=== PATIENT | female | born 1940 | race Caucasian/White ===

== ENCOUNTER 2017-10-27 16:46 | Observation (INO) | payer MEDICARE, OTHER ==
--- NOTE | 2017-10-27 16:56 | EDM.PDOC ---
ED HPI GENERAL MEDICAL PROBLEM - General Chief Complaint: Back Pain or Injury Stated Complaint: HIP PAIN Time Seen by Provider: 10/27/17 16:49 - History of Present Illness INITIAL COMMENTS - FREE TEXT/NARRATIVE: HISTORY AND PHYSICAL: History of present illness: Patient is a 77-year-old female with history of hypertension presents today status post fall in which she hurt her left ribs and lower back she denies any head or neck pain or trauma denies any chest pain palpitations nausea vomiting fever chills shortness of breath or other concern. Review of systems: As per history of present illness and below otherwise all systems reviewed and negative. Past medical history: As per history of present illness and as reviewed below otherwise noncontributory. Surgical history: As per history of present illness and as reviewed below otherwise noncontributory. Social history: No reported history of drug or alcohol abuse. Family history: As per history of present illness and as reviewed below otherwise noncontributory. Physical exam: HEENT: Atraumatic, normocephalic, pupils reactive, negative for conjunctival pallor or scleral icterus, mucous membranes moist, throat clear, neck supple, nontender, trachea midline. Lungs: Clear to auscultation, breath sounds equal bilaterally, tenderness to her left posterior ribs is nonlocalizing no crepitation no point tenderness. Heart: S1S2, regular, negative for clicks, rubs, or JVD. Abdomen: Soft, nondistended, nontender. Negative for masses or hepatosplenomegaly. Negative for costovertebral tenderness. Pelvis: Stable nontender. Genitourinary: Deferred. Rectal: Deferred. Extremities: Atraumatic, negative for cords or calf pain. Neurovascular unremarkable. Neuro: Awake, alert, oriented. Cranial nerves II through XII unremarkable. Cerebellum unremarkable. Motor and sensory unremarkable throughout. Exam nonfocal. Back: Patient is deep tendon reflexes are normal there is no point tenderness no vertebral body tenderness. Diagnostics: CBC CMP chest x-ray EKG left rib x-ray lumbar spine pelvis [employer]rapeutics: To be determined Impression: #1 observation status post fall #2 left rib injury #3 low back injury #4 history of hypertension Definitive disposition and diagnosis as appropriate pending reevaluation and review of above. lower back Pain Score (Numeric/FACES): 7 - Related Data Allergies Allergy/AdvReac Type Severity Reaction Status Date / Time codeine Allergy Change Verified 10/27/17 16:49 Mental Status Latex, Natural Rubber Allergy Other Verified 10/27/17 16:49 avocado Allergy Unknown Airway Uncoded 10/27/17 16:49 Tightness strawberry Allergy Unknown Hives Uncoded 10/27/17 16:49 kiwi Allergy Other Uncoded 10/27/17 16:49 Home Meds: Home Meds Dorzolamide HCl/Timolol Maleat [Dorzolamide-Timolol Eye Drops] 1 drop EYEBOTH BID 03/01/15 [History] Pilocarpine HCl 1 drop EYEBOTH QID 03/01/15 [History] Erythromycin Base [Erythromycin 0.5% Ophth Oint] 1 applic OP Q4H 10/27/17 [ History] Past Medical History - Past Surgical History Other Musculoskeletal Surgeries/Procedures:: right hip fracture with plate and screws Social & Family History - Tobacco Use Smoking Status *Q: Never Smoker Second Hand Smoke Exposure: No - Alcohol Use Number of Drinks Per Day: 2 - Recreational Drug Use Recreational Drug Use: No ED ROS GENERAL - Review of Systems Review Of Systems: ROS reveals no pertinent complaints other than HPI. ED EXAM, GENERAL - Physical Exam Exam: See Below (See dictation) Course - Vital Signs Last Recorded V/S: Last Vital Signs Temp 36.7 C 10/28/17 04:00 Pulse 69 10/28/17 04:00 Resp 17 10/28/17 04:00 BP 128/78 10/28/17 04:00 Pulse Ox 97 10/28/17 04:00 - Orders/Labs/Meds Orders: Active Orders 24 hr Category Date Time Status Patient Status [ADT] Stat ADT 10/27/17 18:33 Active EKG Documentation Completion [RC] STAT Care 10/27/17 16:52 Active Pulse Oximetry [RC] ASDIRECTED Care 10/27/17 16:52 Active Lumbar Spine 2 or 3V [CR] Stat Exams 10/27/17 16:52 Taken Lumbar Spine wo Cont [CT] Stat Exams 10/27/17 18:33 Taken Pelvis 1V or 2V [CR] Stat Exams 10/27/17 16:52 Taken Ribs 2V w Chest Lt [CR] Stat Exams 10/27/17 16:53 Taken Sodium Chloride 0.9% [Normal Saline] 1,000 ml Med 10/27/17 18:45 Active IV STAT Sodium Chloride 0.9% [Saline Flush] Med 10/27/17 18:30 Active 10 ml FLUSH ASDIRECTED PRN Sodium Chloride 0.9% [Saline Flush] Med 10/27/17 18:30 Active 2.5 ml FLUSH ASDIRECTED PRN Saline Lock Insert [OM.PC] Stat Oth 10/27/17 18:31 Ordered Medication Orders Acetaminophen (Tylenol) 650 mg PO Q4H PRN PRN Reason: Pain (Mild 1-3)/fever Dorzolamide/Timolol (Cosopt 2%-0.5% Ophth Soln) 0 ml EYEBOTH BID NAIDA Enoxaparin Sodium (Lovenox) 30 mg SUBCUT DAILY NAIDA Erythromycin (Erythromycin 0.5% Ophth Oint) 0.2 gm EYEBOTH TID NAIDA Sodium Chloride (Normal Saline) 1,000 mls @ 125 mls/hr IV STAT NAIDA Last Admin: 10/28/17 02:24 Dose: 125 mls/hr Infusion: 10/28/17 02:24 Dose: 125 mls/hr Admin: 10/27/17 18:45 Dose: 125 mls/hr Morphine Sulfate (Morphine) 2 mg IVPUSH Q2H PRN PRN Reason: Pain (severe 7-10) Stop: 10/28/17 20:40 Last Admin: 10/27/17 23:33 Dose: 2 mg Ondansetron HCl (Zofran) 4 mg IVPUSH Q4H PRN PRN Reason: Nausea Oxycodone HCl (Oxycodone) 5 mg PO Q4H PRN PRN Reason: Pain (moderate 4-6) Last Admin: 10/28/17 04:41 Dose: 5 mg Admin: 10/27/17 21:23 Dose: 5 mg Pilocarpine HCl (Pilocar 4% Ophth Soln) 0 ml EYEBOTH QID NAIDA Sodium Chloride (Saline Flush) 10 ml FLUSH ASDIRECTED PRN PRN Reason: Keep Vein Open Last Admin: 10/27/17 18:50 Dose: 10 ml Sodium Chloride (Saline Flush) 2.5 ml FLUSH ASDIRECTED PRN PRN Reason: Keep Vein Open Last Admin: 10/27/17 18:50 Dose: 2.5 ml Labs: Laboratory Tests 10/27/17 10/27/17 Range/Units 17:11 17:11 WBC 10.46 (4.0-11.0) K/uL RBC 3.20 L (4.30-5.90) M/uL Hgb 9.7 L (12.0-16.0) g/dL Hct 27.3 L (36.0-46.0) % MCV 85.3 (80.0-98.0) fL MCH 30.3 (27.0-32.0) pg MCHC 35.5 (31.0-37.0) g/dL RDW Std Deviation 43.3 (28.0-62.0) fl RDW Coeff of Alley 14 (11.0-15.0) % Plt Count 255 (150-400) K/uL MPV 9.30 (7.40-12.00) fL Neut % (Auto) 84.4 H (48.0-80.0) % Lymph % (Auto) 5.9 L (16.0-40.0) % Eddy % (Auto) 8.5 (0.0-15.0) % Eos % (Auto) 0.8 (0.0-7.0) % Baso % (Auto) 0.4 (0.0-1.5) % Neut # (Auto) 8.8 H (1.4-5.7) K/uL Lymph # (Auto) 0.6 (0.6-2.4) K/uL Eddy # (Auto) 0.9 H (0.0-0.8) K/uL Eos # (Auto) 0.1 (0.0-0.7) K/uL Baso # (Auto) 0.0 (0.0-0.1) K/uL Nucleated RBC % 0.0 /100WBC Nucleated RBCs # 0 K/uL Sodium 125 L (136-146) mmol/L Potassium 3.3 L (3.5-5.1) mmol/L Chloride 90 L (98-110) mmol/L Carbon Dioxide 25 (21-31) mmol/L BUN 18 (6.0-23.0) mg/dL Creatinine 1.8 H (0.6-1.5) mg/dL Est Cr Clr Drug Dosing TNP Estimated GFR (MDRD) 27.1 ml/min Glucose 105 (60-110) mg/dL Calcium 9.5 (8.8-10.8) mg/dL Total Bilirubin 0.8 (0.1-1.5) mg/dL AST 20 (5-40) IU/L ALT 16 (8-54) IU/L Alkaline Phosphatase 124 (40-150) Total Protein 6.7 (6.0-8.0) g/dL Albumin 3.6 (3.4-4.8) g/dL Globulin 3.1 (2.0-3.5) g/dL Albumin/Globulin Ratio 1.2 L (1.3-2.8) Meds: Medications Generic Name Dose Route Start Last Admin Trade Name Freq PRN Reason Stop Dose Admin Acetaminophen 650 mg 10/27/17 20:39 Tylenol PO Q4H PRN Pain (Mild 1-3)/fever Dorzolamide/Timolol 0 ml 10/28/17 07:00 Cosopt 2%-0.5% Ophth Soln EYEBOTH BID [facility] Enoxaparin Sodium 30 mg 10/28/17 09:00 Lovenox SUBCUT DAILY [facility] Erythromycin 0.2 gm 10/28/17 07:00 Erythromycin 0.5% Ophth Oint EYEBOTH TID [facility] Sodium Chloride 1,000 mls @ 125 mls/hr 10/27/17 18:45 10/28/17 02:24 Normal Saline IV 125 mls/hr STAT NAIDA Administration Morphine Sulfate 2 mg 10/27/17 20:39 10/27/17 23:33 Morphine IVPUSH 10/28/17 20:40 2 mg Q2H PRN Administration Pain (severe 7-10) Ondansetron HCl 4 mg 10/27/17 20:39 Zofran IVPUSH Q4H PRN Nausea Oxycodone HCl 5 mg 10/27/17 20:39 10/28/17 04:41 Oxycodone PO 5 mg Q4H PRN Administration Pain (moderate 4-6) Pilocarpine HCl 0 ml 10/28/17 07:00 Pilocar 4% Ophth Soln EYEBOTH QID NAIDA Sodium Chloride 10 ml 10/27/17 18:30 10/27/17 18:50 Saline Flush FLUSH 10 ml ASDIRECTED PRN Administration Keep Vein Open Sodium Chloride 2.5 ml 10/27/17 18:30 10/27/17 18:50 Saline Flush FLUSH 2.5 ml ASDIRECTED PRN Administration Keep Vein Open Discontinued Medications Generic Name Dose Route Start Last Admin Trade Name Elijahq PRN Reason Stop Dose Admin Hydralazine HCl 10 mg 10/27/17 18:30 10/27/17 18:47 Apresoline IVPUSH 10/27/17 18:31 10 mg ONETIME ONE Administration Ketorolac Tromethamine 30 mg 10/27/17 18:00 10/27/17 18:04 Toradol IM 10/27/17 18:01 30 mg ONETIME ONE Administration Morphine Sulfate 2 mg 10/27/17 19:05 10/27/17 19:11 Morphine IVPUSH 10/27/17 19:06 2 mg ONETIME ONE Administration Departure - Departure Time of Disposition: 07:14 Disposition: Refer to Observation Condition: Good Clinical Impression: Rib fracture, Lumbar compression fracture, Hyponatremia - Discharge Information - My Orders Last 24 Hours: My Active Orders 10/27/17 16:52 EKG Documentation Completion [RC] STAT Pulse Oximetry [RC] ASDIRECTED Lumbar Spine 2 or 3V [CR] Stat Pelvis 1V or 2V [CR] Stat 10/27/17 16:53 Ribs 2V w Chest Lt [CR] Stat 10/27/17 18:30 Sodium Chloride 0.9% [Saline Flush] 10 ml FLUSH ASDIRECTED PRN Sodium Chloride 0.9% [Saline Flush] 2.5 ml FLUSH ASDIRECTED PRN 10/27/17 18:31 Saline Lock Insert [OM.PC] Stat 10/27/17 18:33 Patient Status [ADT] Stat Lumbar Spine wo Cont [CT] Stat 10/27/17 18:45 Sodium Chloride 0.9% [Normal Saline] 1,000 ml IV STAT - Assessment/Plan Last 24 Hours: My Active Orders 10/27/17 16:52 EKG Documentation Completion [RC] STAT Pulse Oximetry [RC] ASDIRECTED Lumbar Spine 2 or 3V [CR] Stat Pelvis 1V or 2V [CR] Stat 10/27/17 16:53 Ribs 2V w Chest Lt [CR] Stat 10/27/17 18:30 Sodium Chloride 0.9% [Saline Flush] 10 ml FLUSH ASDIRECTED PRN Sodium Chloride 0.9% [Saline Flush] 2.5 ml FLUSH ASDIRECTED PRN 10/27/17 18:31 Saline Lock Insert [OM.PC] Stat 10/27/17 18:33 Patient Status [ADT] Stat Lumbar Spine wo Cont [CT] Stat 10/27/17 18:45 Sodium Chloride 0.9% [Normal Saline] 1,000 ml IV STAT
[2017-10-27 17:38] LABS: CHLORIDE,CL 90 mmol/L (98-110); SODIUM,NA 125 mmol/L (136-146)
[2017-10-27] MEDS ORDERED: Ketorolac 30 MG/ML SDV IM ONE (18:00)
[2017-10-27] MEDS ORDERED: Sodium Chloride 0.9% 2.5 ML Syringe FLUSH PRN (18:30)
[2017-10-27] MEDS ORDERED: hydrALAZINE 20 MG/ML SDV IVPUSH ONE (18:30)
[2017-10-27] MEDS ORDERED: Sodium Chloride 0.9% 10 ML Syringe FLUSH PRN (18:30)
[2017-10-27] MEDS: Sodium Chloride 0.9% 1,000 ML IV SCH (18:45)
[2017-10-27] MEDS ORDERED: Morphine 2 MG/ML Syringe IVPUSH ONE (19:05)
[2017-10-27] MEDS ORDERED: Acetaminophen 325 MG Tab PO PRN (20:39)
[2017-10-27] MEDS ORDERED: Ondansetron 4 MG/2 ML SDV IVPUSH PRN (20:39)
[2017-10-27] MEDS ORDERED: Morphine 10 MG/ML Syringe IVPUSH PRN (20:39)
--- NOTE | 2017-10-27 20:52 | PCM.HP ---
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 Patient tripped outside on the ice and landing on her back. She then developed lower back pain. She denies any lightheadedness or dizziness. She denies any chest pain, fevers or chills. CXR reported nondisplaced fracture in the left &7th rib. X-ray of lumbar spin reported acute anterior buckle fracture in the L3 vertebral body, and moderate compression fracture of T12 that is likely chronic. lower back Pain Score (Numeric/FACES): 7 - Related Data Allergies/Adverse Reactions: Allergies Allergy/AdvReac Type Severity Reaction Status Date / Time codeine Allergy Change Verified 10/27/17 16:49 Mental Status Latex, Natural Rubber Allergy Other Verified 10/27/17 16:49 avocado Allergy Unknown Airway Uncoded 10/27/17 16:49 Tightness strawberry Allergy Unknown Hives Uncoded 10/27/17 16:49 kiwi Allergy Other Uncoded 10/27/17 16:49 Home Medications: Home Meds Dorzolamide HCl/Timolol Maleat [Dorzolamide-Timolol Eye Drops] 1 drop EYEBOTH BID 03/01/15 [History] Pilocarpine HCl 1 drop EYEBOTH QID 03/01/15 [History] Erythromycin Base [Erythromycin 0.5% Ophth Oint] 1 applic OP Q4H 10/27/17 [ History] Past Medical History HEENT History: Reports: Glaucoma Cardiovascular History: Reports: Hypertension - Past Surgical History Other Musculoskeletal Surgeries/Procedures:: right hip fracture with plate and screws Social & Family History - Family History Family Medical History: Noncontributory - Tobacco Use Smoking Status *Q: Never Smoker Second Hand Smoke Exposure: No - Caffeine Use Caffeine Use: Reports: None - Alcohol Use Number of Drinks Per Day: 2 - Recreational Drug Use Recreational Drug Use: No H&P Review of Systems - Review of Systems: Review Of Systems: ROS reveals no pertinent complaints other than HPI. Exam - Exam Exam: See Below - Vital Signs Vital Signs: Last Vital Signs Temp 37.0 C 10/27/17 16:53 Pulse 71 10/27/17 20:04 Resp 18 10/27/17 20:04 BP 171/140 H 10/27/17 20:04 Pulse Ox 98 10/27/17 20:04 Weight: 40.823 kg - Exam General: Alert, Oriented HEENT: Posterior Pharynx Clear Neck: Supple, Trachea Midline Lungs: Clear to Auscultation, Normal Respiratory Effort Cardiovascular: Regular Rate, Regular Rhythm GI/Abdominal Exam: Soft, Non-Tender Back Exam: Full Range of Motion Extremities: Normal Range of Motion, Non-Tender, No Pedal Edema Skin: Warm, Dry, Intact - Patient Data Result Diagrams: 10/28/17 05:22 10/28/17 15:35 *Q Meaningful Use (ADM) - VTE *Q VTE Criteria *Q: - Stroke *Q Stroke Criteria *Q: - AMI *Q AMI Criteria *Q: Problem List Initiated/Reviewed/Updated: Yes Orders Last 24hrs: Active Orders 24 hr Category Date Time Status Antiembolic Devices [RC] PER UNIT ROUTINE Care 10/27/17 20:41 Ordered Oxygen Therapy [RC] PRN Care 10/27/17 20:39 Ordered VTE/DVT Education [RC] PER UNIT ROUTINE Care 10/27/17 20:39 Ordered Vital Signs [RC] Q4H Care 10/27/17 20:39 Ordered PT Evaluation and Treatment [CONS] Routine Cons 10/27/17 20:39 Ordered Regular Diet [DIET] Diet 10/27/17 Breakfast Ordered BASIC METABOLIC PANEL,BMP [CHEM] AM Lab 10/28/17 05:11 Ordered CBC WITH AUTO DIFF [HEME] AM Lab 10/28/17 05:11 Ordered Acetaminophen [Tylenol] Med 10/27/17 20:39 Ordered 650 mg PO Q4H PRN Enoxaparin [Lovenox] Med 10/28/17 09:00 Ordered 40 mg SUBCUT DAILY Morphine Med 10/27/17 20:39 Ordered 2 mg IVPUSH Q2H PRN Ondansetron [Zofran] Med 10/27/17 20:39 Ordered 4 mg IVPUSH Q4H PRN oxyCODONE Med 10/27/17 20:39 Ordered 5 mg PO Q4H PRN Sequential Compression Device [OM.PC] Per Unit Routine Oth 10/27/17 20:40 Ordered Resuscitation Status Routine Resus Stat 10/27/17 20:39 Ordered Medication Orders Acetaminophen (Tylenol) 650 mg PO Q4H PRN PRN Reason: Pain (Mild 1-3)/fever Enoxaparin Sodium (Lovenox) 40 mg SUBCUT DAILY NAIDA Sodium Chloride (Normal Saline) 1,000 mls @ 125 mls/hr IV STAT NAIDA Last Admin: 10/27/17 18:45 Dose: 125 mls/hr Morphine Sulfate (Morphine) 2 mg IVPUSH Q2H PRN PRN Reason: Pain (severe 7-10) Stop: 10/28/17 20:40 Ondansetron HCl (Zofran) 4 mg IVPUSH Q4H PRN PRN Reason: Nausea Oxycodone HCl (Oxycodone) 5 mg PO Q4H PRN PRN Reason: Pain (moderate 4-6) Sodium Chloride (Saline Flush) 10 ml FLUSH ASDIRECTED PRN PRN Reason: Keep Vein Open Last Admin: 10/27/17 18:50 Dose: 10 ml Sodium Chloride (Saline Flush) 2.5 ml FLUSH ASDIRECTED PRN PRN Reason: Keep Vein Open Last Admin: 10/27/17 18:50 Dose: 2.5 ml Assessment/Plan Comment:: 77 yo female admitted following a fall with acute L3 veterbral body fracture, hyponatremia, and likely acute kidney injury. Patient likely dehydrate so will give IV fluids of normal saline and monitor sodium. CT scan of lumbar spine is pending. We will treat pain with tyelonol, and prn narcotics.
[2017-10-27] MEDS: oxyCODONE 5 MG Tab PO PRN (21:23)
[2017-10-28] MEDS: Sodium Chloride 0.9% 1,000 ML IV SCH ×3 (02:24→21:48)
[2017-10-28] MEDS: oxyCODONE 5 MG Tab PO PRN ×4 (04:41→19:38)
[2017-10-28] MEDS: Pilocarpine 4% Ophth Soln 15 ML Bot EYEBOTH SCH ×3 (08:00→18:10)
[2017-10-28] MEDS: Erythromycin Base 0.5% Ophth Oint 1 GM Tube EYEBOTH SCH ×3 (08:00→21:47)
[2017-10-28] MEDS: Dorzolamide/Timolol 2%-0.5% Ophth Soln 10 ML Bottle EYEBOTH SCH ×3 (08:06→21:47)
[2017-10-28] MEDS ORDERED: Potassium Chloride 20 MEQ Tab.ER PO ONE (08:09)
[2017-10-28] MEDS ORDERED: Morphine 2 MG/ML Syringe IVPUSH PRN (08:45)
[2017-10-28] MEDS: Heparin Sodium 5,000 Units/ML Vial SUBCUT SCH ×2 (08:59→17:20)
[2017-10-28] MEDS ORDERED: Enoxaparin 30 MG/0.3 ML Syringe SUBCUT SCH (09:00)
[2017-10-28] MEDS ORDERED: Magnesium Sulfate/Water 4 GM in Premix Bag 1 BAG IV ONE (11:25)
--- NOTE | 2017-10-28 12:01 | PCM.PN ---
- General Info Date of Service: 10/28/17 Admission Dx/Problem (Free Text): Fall, hyponatremia Subjective Update: Feeling better this morning. Pain is well controlled with Oxycodone. currently ambulating with PT this morning. Denies chest pain, SOB or abdominal pain. Functional Status: Reports: Pain Controlled, Tolerating Diet, Ambulating, Urinating - Review of Systems HEENT: Reports: No Symptoms. Denies: Headaches, Sore Throat, Rhinitis Pulmonary: Reports: No Symptoms. Denies: Shortness of Breath, Cough, Sputum Cardiovascular: Reports: No Symptoms. Denies: Chest Pain, Edema Gastrointestinal: Reports: No Symptoms. Denies: Abdominal Pain, Nausea, Vomiting Genitourinary: Reports: No Symptoms. Denies: Dysuria, Frequency, Burning Neurological: Reports: No Symptoms. Denies: Confusion Psychiatric: Reports: No Symptoms. Denies: Confusion - Patient Data Vitals - Most Recent: Last Vital Signs Temp 97.0 F 10/28/17 08:15 Pulse 66 10/28/17 08:15 Resp 20 10/28/17 08:15 BP 128/50 L 10/28/17 08:15 Pulse Ox 99 10/28/17 08:15 Weight - Most Recent: 37.648 kg I&O - Last 24 Hours: Intake & Output 10/27/17 10/28/17 10/28/17 22:59 06:59 14:59 Intake Total 1299 Output Total 300 Balance 999 Lab Results Last 24 Hours: Laboratory Results - last 24 hr 10/27/17 10/28/17 10/28/17 Range/Units 22:50 04:40 05:22 WBC 7.93 (4.0-11.0) K/uL RBC 2.78 L (4.30-5.90) M/uL Hgb 8.5 L (12.0-16.0) g/dL Hct 23.9 L (36.0-46.0) % MCV 86.0 (80.0-98.0) fL MCH 30.6 (27.0-32.0) pg MCHC 35.6 (31.0-37.0) g/dL RDW Std Deviation 44.2 (28.0-62.0) fl RDW Coeff of Alley 14 (11.0-15.0) % Plt Count 254 (150-400) K/uL MPV 9.60 (7.40-12.00) fL Neut % (Auto) 81.4 H (48.0-80.0) % Lymph % (Auto) 7.8 L (16.0-40.0) % [place] % (Auto) 8.8 (0.0-15.0) % Eos % (Auto) 1.5 (0.0-7.0) % Baso % (Auto) 0.5 (0.0-1.5) % Neut # (Auto) 6.5 H (1.4-5.7) K/uL Lymph # (Auto) 0.6 (0.6-2.4) K/uL [place] # (Auto) 0.7 (0.0-0.8) K/uL Eos # (Auto) 0.1 (0.0-0.7) K/uL Baso # (Auto) 0.0 (0.0-0.1) K/uL Nucleated RBC % 0.0 /100WBC Nucleated RBCs # 0 K/uL Sodium 126 L (136-146) mmol/L Potassium 3.2 L (3.5-5.1) mmol/L Chloride 93 L (98-110) mmol/L Carbon Dioxide 22 (21-31) mmol/L BUN 19 (6.0-23.0) mg/dL Creatinine 1.5 (0.6-1.5) mg/dL Est Cr Clr Drug Dosing 19.60 mL/min Estimated GFR (MDRD) 33.5 ml/min Glucose 95 (60-110) mg/dL Calcium 8.4 L (8.8-10.8) mg/dL Magnesium (1.5-2.3) mEq/L Urine Color YELLOW Urine Appearance SLT CLOUDY Urine pH 6.0 (5.0-8.0) Ur Specific [place] 1.010 (1.001-1.035) Urine Protein TRACE (NEGATIVE) mg/dL Urine Glucose (UA) NEGATIVE (NEGATIVE) mg/dL Urine Ketones TRACE H (NEGATIVE) mg/dL Urine Occult Blood NEGATIVE (NEGATIVE) Urine Nitrite NEGATIVE (NEGATIVE) Urine Bilirubin NEGATIVE (NEGATIVE) Urine Urobilinogen 0.2 (<2.0) EU/dL Ur Leukocyte Esterase MODERATE (NEGATIVE) Urine RBC 0-2 (0-2/HPF) Urine WBC 10-13 (0-5/HPF) Ur Epithelial Cells FEW (NONE-FEW) Urine Bacteria FEW (NEGATIVE) 10/28/17 10/28/17 Range/Units 05:22 05:22 WBC (4.0-11.0) K/uL RBC (4.30-5.90) M/uL Hgb (12.0-16.0) g/dL Hct (36.0-46.0) % MCV (80.0-98.0) fL MCH (27.0-32.0) pg MCHC (31.0-37.0) g/dL RDW Std Deviation (28.0-62.0) fl RDW Coeff of [place] (11.0-15.0) % Plt Count (150-400) K/uL MPV (7.40-12.00) fL Neut % (Auto) (48.0-80.0) % Lymph % (Auto) (16.0-40.0) % [place] % (Auto) (0.0-15.0) % Eos % (Auto) (0.0-7.0) % Baso % (Auto) (0.0-1.5) % Neut # (Auto) (1.4-5.7) K/uL Lymph # (Auto) (0.6-2.4) K/uL [place] # (Auto) (0.0-0.8) K/uL Eos # (Auto) (0.0-0.7) K/uL Baso # (Auto) (0.0-0.1) K/uL Nucleated RBC % /100WBC Nucleated RBCs # K/uL Sodium 128 L (136-146) mmol/L Potassium 3.3 L (3.5-5.1) mmol/L Chloride 97 L (98-110) mmol/L Carbon Dioxide 19 L (21-31) mmol/L BUN 18 (6.0-23.0) mg/dL Creatinine 1.4 (0.6-1.5) mg/dL Est Cr Clr Drug Dosing 19.37 mL/min Estimated GFR (MDRD) 36.3 ml/min Glucose 74 (60-110) mg/dL Calcium 7.9 L (8.8-10.8) mg/dL Magnesium 1.3 L (1.5-2.3) mEq/L Urine Color Urine Appearance Urine pH (5.0-8.0) Ur Specific [place] (1.001-1.035) Urine Protein (NEGATIVE) mg/dL Urine Glucose (UA) (NEGATIVE) mg/dL Urine Ketones (NEGATIVE) mg/dL Urine Occult Blood (NEGATIVE) Urine Nitrite (NEGATIVE) Urine Bilirubin (NEGATIVE) Urine Urobilinogen (<2.0) EU/dL Ur Leukocyte Esterase (NEGATIVE) Urine RBC (0-2/HPF) Urine WBC (0-5/HPF) Ur Epithelial Cells (NONE-FEW) Urine Bacteria (NEGATIVE) Med Orders - Current: Current Medications Acetaminophen (Tylenol) 650 mg PO Q4H PRN PRN Reason: Pain (Mild 1-3)/fever Dorzolamide/Timolol (Cosopt 2%-0.5% Ophth Soln) 0 ml EYEBOTH BID [facility] Last Admin: 10/28/17 09:12 Dose: Not Given Erythromycin (Erythromycin 0.5% Ophth Oint) 0.2 gm EYEBOTH TID [facility] Last Admin: 10/28/17 08:00 Dose: 1 drop Heparin Sodium (Porcine) (Heparin Sodium) 5,000 units SUBCUT Q8H [facility] Last Admin: 10/28/17 08:59 Dose: 5,000 units Sodium Chloride (Normal Saline) 1,000 mls @ 125 mls/hr IV STAT [facility] Last Admin: 10/28/17 10:45 Dose: 125 mls/hr Magnesium Sulfate 4 gm/ Premix 100 mls @ 50 mls/hr IV ONETIME ONE Stop: 10/28/17 13:24 Morphine Sulfate (Morphine) 2 mg IVPUSH Q2H PRN PRN Reason: Pain (severe 7-10) Ondansetron HCl (Zofran) 4 mg IVPUSH Q4H PRN PRN Reason: Nausea Oxycodone HCl (Oxycodone) 5 mg PO Q4H PRN PRN Reason: Pain (moderate 4-6) Last Admin: 10/28/17 09:08 Dose: 5 mg Pilocarpine HCl (Pilocar 4% Ophth Soln) 0 ml EYEBOTH QID [facility] Last Admin: 10/28/17 08:00 Dose: 1 dose Sodium Chloride (Saline Flush) 10 ml FLUSH ASDIRECTED PRN PRN Reason: Keep Vein Open Last Admin: 10/27/17 18:50 Dose: 10 ml Sodium Chloride (Saline Flush) 2.5 ml FLUSH ASDIRECTED PRN PRN Reason: Keep Vein Open Last Admin: 10/27/17 18:50 Dose: 2.5 ml Discontinued Medications Hydralazine HCl (Apresoline) 10 mg IVPUSH ONETIME ONE Stop: 10/27/17 18:31 Last Admin: 10/27/17 18:47 Dose: 10 mg Ketorolac Tromethamine (Toradol) 30 mg IM ONETIME ONE Stop: 10/27/17 18:01 Last Admin: 10/27/17 18:04 Dose: 30 mg Morphine Sulfate (Morphine) 2 mg IVPUSH ONETIME ONE Stop: 10/27/17 19:06 Last Admin: 10/27/17 19:11 Dose: 2 mg Morphine Sulfate (Morphine) 2 mg IVPUSH Q2H PRN PRN Reason: Pain (severe 7-10) Stop: 10/28/17 20:40 Last Admin: 10/27/17 23:33 Dose: 2 mg Potassium Chloride (Klor-Con M20) 40 meq PO ONETIME ONE Stop: 10/28/17 08:10 Last Admin: 10/28/17 09:01 Dose: 40 meq - Exam General: Alert, Oriented, Cooperative, No Acute Distress Neck: Supple Lungs: Clear to Auscultation, Normal Respiratory Effort Cardiovascular: Regular Rate, Regular Rhythm GI/Abdominal Exam: Normal Bowel Sounds, Soft, Non-Tender, No Organomegaly, No Distention, No Abnormal Bruit, No Mass, Pelvis Stable Extremities: Normal Inspection, Normal Range of Motion, Non-Tender, No Pedal Edema, Normal Capillary Refill Neurological: No New Focal Deficit Psy/Mental Status: Alert, Normal Affect, Normal Mood - Problem List & Annotations (1) Thoracic compression fracture SNOMED Code(s): 102128069 Code(s): S22.000A - WEDGE COMPRESSION FRACTURE OF UNSP THORACIC VERTEBRA, INIT Status: Acute Current Visit: Yes Qualifiers: Encounter type: initial encounter Fracture type: closed Qualified Code(s) : S22.000A - Wedge compression fracture of unspecified thoracic vertebra, initial encounter for closed fracture (2) Rib fracture SNOMED Code(s): 57166085 Code(s): S22.39XA - FRACTURE OF ONE RIB, UNSP SIDE, INIT FOR CLOS FX Status : Acute Current Visit: Yes Qualifiers: Encounter type: initial encounter Rib fracture type: single rib Fracture type: closed Laterality: left Qualified Code(s): S22.32XA - Fracture of one rib, left side, initial encounter for closed fracture (3) Hypokalemia SNOMED Code(s): 46113547 Code(s): E87.6 - HYPOKALEMIA Status: Acute Current Visit: Yes (4) Hypomagnesemia SNOMED Code(s): 588553970 Code(s): E83.42 - HYPOMAGNESEMIA Status: Acute Current Visit: Yes (5) Hyponatremia SNOMED Code(s): 95966112 Code(s): E87.1 - HYPO-OSMOLALITY AND HYPONATREMIA Status: Acute Current Visit: Yes (6) Glaucoma SNOMED Code(s): 50882435 Code(s): H40.9 - UNSPECIFIED GLAUCOMA Status: Chronic Current Visit: Yes (7) HTN (hypertension) SNOMED Code(s): 54229324 Code(s): I10 - ESSENTIAL (PRIMARY) HYPERTENSION Status: Chronic Current Visit: Yes - Problem List Review Problem List Initiated/Reviewed/Updated: Yes - My Orders Last 24 Hours: My Active Orders 10/28/17 11:25 Magnesium Sulfate/Water [Magnesium Sulfate 4 GM in Water 100 ML] 4 gm Premix Bag 1 bag IV ONETIME - Plan Plan:: 77 yo female admitted following a fall with acute L3 veterbral body fracture, hyponatremia, and likely acute kidney injury. 1. Fall with thoracic compression fracture: CT reveals "There are compression fractures of T10, T11 and T12. At the T10 level, there is approximately 50-60 percent compression and at the T11 level, approximately 40 percent compression. No evidence for significant narrowing of the spinal canal at either of these levels. These 2 compressions are probably chronic. At T12, there is approximately 40-50 percent compression and the compression fracture appears acute. Retropulsion of the posterior aspect of T12 into the spinal canal by 4-5 mm resulting in minimal central stenosis. Some air is noted within the T12 vertebral body and osteonecrosis can't be excluded. in the lumbar spine, there is interspace narrowing at L3-4 and mild marginal spurring. No lumbar fractures are identified. No evidence for significant central stenosis or neural foraminal narrowing in the lumbar spine." Spoke with Dr Rosas regarding air in T12 vertebral body, likely secondary to acute compression fracture from disc. Will monitor labwork. No infectious process suspected. Continue Tylenol and PRN Oxycodone for pain. No NSAIDs due to PITO. 2. Hyponatremia: Improving. Na 128, will continue IVFs today and recheck this afternoon. Will also supplement Potassium orally and Magnesium IV. 3. PITO: Improving. Continue IVFs and continue PO fluids. BUN 18 and Cr 1.4 today. 4. Glaucoma: Continue eye drops. VTE prophylaxis: Lovenox. Dispo: 1 day
--- NOTE | 2017-10-28 13:42 | CR ---
EXAM DATE: 10/27/17 PATIENT'S AGE: 77 Patient: BERENICE JADE Facility: [place], [place] Site . 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 Chronic pubic rami deformities again noted. Chronic appearing deformities of the right inferior pubic ramus and ischium, not seen on the prior. A cortical irregularity and lucency involving the right ischium inferior to the acetabulum, not seen on the prior, which could be related to chronic trauma, however a nontraumatic etiology is not excluded. Consider further evaluation with CT or MRI. No dislocation. Joint spaces: Unremarkable. Soft tissues: Unremarkable. Dictated by Vivek Venegas MD @ 10/27/2017 6:11:34 PM Dictated by: Vivek Venegas MD @ 10/27/2017 18:11:58 (Electronic Signature) Report Signed by Proxy. RADHA
--- NOTE | 2017-10-28 13:43 | CR ---
EXAM DATE: 10/27/17 PATIENT'S AGE: 77 Patient: BERENICE JADE Facility: [place], [place] Site . Site : 1940 Study: XRay Chest Left [id number] cxr/ribs-10/27/2017 5:47:57 PM Ordering Physician: Mary Chavez Final Report: INDICATION: Pain status post fall TECHNIQUE: Chest and left ribs 3 views. COMPARISON: A chest x-ray dated 03/01/2015 FINDINGS: Cardiovascular and mediastinum: Increased prominence of the right cardiac silhouette. Lungs and pleural spaces: Dense right mid lung nodules suggestive of granulomas. Lateral right basilar scarring and adjacent pleural thickening. No pneumothorax seen. Bones and soft tissues: A small cortical lucency in the anterolateral left 7th rib on one view and an apparent focal cortical irregularity in the posterolateral left 11th rib on one view, versus artifact. A focal cortical deformity in the lateral left 4th rib could be subacute to chronic. A chronic unfused fracture deformity of the proximal left humerus again seen. IMPRESSION: An apparent nondisplaced fracture in the left 7th rib. An apparent cortical deformity in the 11th rib and an apparently subacute to chronic deformity in the 4th rib. Correlate for focal tenderness. Dictated by Vivek Venegas MD @ 10/27/2017 6:23:24 PM Dictated by: Vivek Venegas MD @ 10/27/2017 18:23:30 (Electronic Signature) Report Signed by Proxy. [facility]
--- NOTE | 2017-10-28 13:44 | CR ---
EXAM DATE: 10/27/17 PATIENT'S AGE: 77 Patient: BERENICE JADE Facility: [place], [place] Site . Site : 1940 Study: XRay Spine Lumbar [id number]/21/2018 5:48:18 PM Ordering Physician: Mary Chavez Final Report: INDICATION: Back pain status post fall TECHNIQUE: Lumbar spine 3 view COMPARISON: None FINDINGS: Bones: Acute buckle fracture is in the anterior cortex of the L3 vertebral body. Moderate compression deformity of T12 is likely chronic. Mild scoliosis. No other osseous abnormality. Joints: Disc spaces and facets are within normal limits. Soft tissues: Unremarkable. IMPRESSION: Acute anterior buckle fracture in the L3 vertebral body. Moderate compression fracture of T12 is likely chronic. Dictated by Richard Torre MD @ Oct 27 2017 6:14PM (Electronic Signature) Report Signed by Proxy. RADHA
--- NOTE | 2017-10-28 13:46 | CT ---
EXAM DATE: 10/27/17 PATIENT'S AGE: 77 Patient: BERENICE JADE Facility: [place], [place] Site . Site : 1940 Study: CT Spine Lumbar [id number]/21/2018 7:42:29 PM Ordering Physician: Mary Chavez Final Report: INDICATION: LBP TECHNIQUE: Helical noncontrast scans obtained through the spine from mid T9 through S4. COMPARISON: Plain films of the lumbar spine from earlier today. FINDINGS: 1. There are compression fractures of T10, T11 and T12. 2. At the T10 level, there is approximately 50-60 percent compression and at the T11 level, approximately 40 percent compression. No evidence for significant narrowing of the spinal canal at either of these levels. These 2 compressions are probably chronic. 3. At T12, there is approximately 40-50 percent compression and the compression fracture appears acute. Retropulsion of the posterior aspect of T12 into the spinal canal by 4-5 mm resulting in minimal central stenosis. Some air is noted within the T12 vertebral body and osteonecrosis can`t be excluded. 4. In the lumbar spine, there is interspace narrowing at L3-4 and mild marginal spurring. No lumbar fractures are identified. No evidence for significant central stenosis or neural foraminal narrowing in the lumbar spine. 5. Incidentally noted is small amount of pleural fluid at both lung bases and pleural calcification at the right lung base. 6. In the right adnexal region of the pelvis, there are cystic changes measuring up to 2.5 cm in diameter, probably a cyst within the right ovary. Consider pelvic ultrasound for further evaluation. 7. Aortoiliac artery calcification. IMPRESSION: Compression fracture of T12 which appears recent with minimal narrowing of the spinal canal at this level. There are also compressions of T10 and T11 which appear chronic. No lumbar vertebral compressions are identified. Dictated by Mark Corona MD @ 10/27/2017 8:42:22 PM Dictated by: Mark Corona MD @ 10/27/2017 20:42:30 (Electronic Signature) Report Signed by Proxy. RADHA
[2017-10-28] MEDS: Ciprofloxacin in D5W 400 MG in Premix Bag 1 BAG IV SCH ×2 (21:49)
[2017-10-29] MEDS: Heparin Sodium 5,000 Units/ML Vial SUBCUT SCH ×3 (00:54→16:28)
[2017-10-29] MEDS: Pilocarpine 4% Ophth Soln 15 ML Bot EYEBOTH SCH ×4 (00:54→18:04)
[2017-10-29] MEDS: Erythromycin Base 0.5% Ophth Oint 1 GM Tube EYEBOTH SCH ×3 (06:27→21:22)
[2017-10-29] MEDS: Sodium Chloride 0.9% 1,000 ML IV SCH ×2 (06:56→17:21)
[2017-10-29] MEDS: Docusate Sodium 100 MG Cap PO SCH (08:55)
[2017-10-29] MEDS: traMADol 50 MG Tab PO PRN ×3 (08:55→21:22)
[2017-10-29] MEDS: Dorzolamide/Timolol 2%-0.5% Ophth Soln 10 ML Bottle EYEBOTH SCH ×2 (09:12→21:22)
--- NOTE | 2017-10-29 09:41 | PCM.PN ---
- General Info Date of Service: 10/29/17 Admission Dx/Problem (Free Text): Fall, hyponatremia Subjective Update: Mimi is slightly confused this morning and disoriented, but easily reoriented when directed. She is oriented to person and place and time. Reports back is hurting and appears restless. No chest pain or SOB. Functional Status: Reports: Tolerating Diet, Ambulating, Urinating. Denies: Pain Controlled - Review of Systems HEENT: Reports: No Symptoms. Denies: Headaches, Sore Throat, Visual Changes Pulmonary: Reports: No Symptoms. Denies: Shortness of Breath Cardiovascular: Reports: No Symptoms. Denies: Chest Pain Gastrointestinal: Reports: No Symptoms. Denies: Abdominal Pain, Nausea, Vomiting Genitourinary: Reports: No Symptoms. Denies: Dysuria, Frequency, Burning Musculoskeletal: Reports: Back Pain (low back pain) Neurological: Reports: No Symptoms. Denies: Confusion Psychiatric: Reports: No Symptoms. Denies: Confusion - Patient Data Vitals - Most Recent: Last Vital Signs Temp 97.9 F 10/29/17 08:00 Pulse 67 10/29/17 08:00 Resp 22 H 10/29/17 08:00 BP 184/81 H 10/29/17 08:00 Pulse Ox 96 10/29/17 08:00 Weight - Most Recent: 37.655 kg I&O - Last 24 Hours: Intake & Output 10/28/17 10/29/17 10/29/17 22:59 06:59 14:59 Intake Total 2141 240 Output Total 685 350 Balance 1456 -110 Lab Results Last 24 Hours: Laboratory Results - last 24 hr 10/28/17 10/28/17 10/29/17 Range/Units 15:35 21:15 06:11 WBC 7.98 (4.0-11.0) K/uL RBC 3.02 L (4.30-5.90) M/uL Hgb 9.1 L (12.0-16.0) g/dL Hct 26.2 L (36.0-46.0) % MCV 86.8 (80.0-98.0) fL MCH 30.1 (27.0-32.0) pg MCHC 34.7 (31.0-37.0) g/dL RDW Std Deviation 44.8 (28.0-62.0) fl RDW Coeff of [place] 14 (11.0-15.0) % Plt Count 275 (150-400) K/uL MPV 9.40 (7.40-12.00) fL Neut % (Auto) 81.7 H (48.0-80.0) % Lymph % (Auto) 7.1 L (16.0-40.0) % [place] % (Auto) 7.6 (0.0-15.0) % Eos % (Auto) 2.8 (0.0-7.0) % Baso % (Auto) 0.8 (0.0-1.5) % Neut # (Auto) 6.5 H (1.4-5.7) K/uL Lymph # (Auto) 0.6 (0.6-2.4) K/uL [place] # (Auto) 0.6 (0.0-0.8) K/uL Eos # (Auto) 0.2 (0.0-0.7) K/uL Baso # (Auto) 0.1 (0.0-0.1) K/uL Nucleated RBC % 0.0 /100WBC Nucleated RBCs # 0 K/uL Sodium 127 L 127 L (136-146) mmol/L Potassium 4.3 4.8 (3.5-5.1) mmol/L Chloride 96 L 98 (98-110) mmol/L Carbon Dioxide 21 21 (21-31) mmol/L BUN 18 18 (6.0-23.0) mg/dL Creatinine 1.3 1.2 (0.6-1.5) mg/dL Est Cr Clr Drug Dosing 20.85 24.50 mL/min Estimated GFR (MDRD) 39.5 43.3 ml/min Glucose 102 118 H (60-110) mg/dL Calcium 8.5 L 8.6 L (8.8-10.8) mg/dL Magnesium 2.8 H (1.5-2.3) mEq/L 10/29/17 Range/Units 06:11 WBC (4.0-11.0) K/uL RBC (4.30-5.90) M/uL Hgb (12.0-16.0) g/dL Hct (36.0-46.0) % MCV (80.0-98.0) fL MCH (27.0-32.0) pg MCHC (31.0-37.0) g/dL RDW Std Deviation (28.0-62.0) fl RDW Coeff of [place] (11.0-15.0) % Plt Count (150-400) K/uL MPV (7.40-12.00) fL Neut % (Auto) (48.0-80.0) % Lymph % (Auto) (16.0-40.0) % [place] % (Auto) (0.0-15.0) % Eos % (Auto) (0.0-7.0) % Baso % (Auto) (0.0-1.5) % Neut # (Auto) (1.4-5.7) K/uL Lymph # (Auto) (0.6-2.4) K/uL [place] # (Auto) (0.0-0.8) K/uL Eos # (Auto) (0.0-0.7) K/uL Baso # (Auto) (0.0-0.1) K/uL Nucleated RBC % /100WBC Nucleated RBCs # K/uL Sodium 127 L (136-146) mmol/L Potassium 4.2 (3.5-5.1) mmol/L Chloride 102 (98-110) mmol/L Carbon Dioxide 17 L (21-31) mmol/L BUN 14 (6.0-23.0) mg/dL Creatinine 1.0 (0.6-1.5) mg/dL Est Cr Clr Drug Dosing 27.12 mL/min Estimated GFR (MDRD) 53.5 ml/min Glucose 89 (60-110) mg/dL Calcium 8.2 L (8.8-10.8) mg/dL Magnesium 1.9 (1.5-2.3) mEq/L Med Orders - Current: Current Medications Acetaminophen (Tylenol) 650 mg PO Q4H PRN PRN Reason: Pain (Mild 1-3)/fever Docusate Sodium (Colace) 100 mg PO DAILY [facility] Last Admin: 10/29/17 08:55 Dose: 100 mg Dorzolamide/Timolol (Cosopt 2%-0.5% Ophth Soln) 0 ml EYEBOTH BID [facility] Last Admin: 10/29/17 09:12 Dose: 1 drop Erythromycin (Erythromycin 0.5% Ophth Oint) 0.2 gm EYEBOTH TID [facility] Last Admin: 10/29/17 06:27 Dose: 1 applic Heparin Sodium (Porcine) (Heparin Sodium) 5,000 units SUBCUT Q8H [facility] Last Admin: 10/29/17 08:58 Dose: 5,000 units Sodium Chloride (Normal Saline) 1,000 mls @ 125 mls/hr IV STAT [facility] Last Admin: 10/29/17 06:56 Dose: 125 mls/hr Ciprofloxacin/Dextrose 400 mg/ (Premix) 200 mls @ 200 mls/hr IV Q18H [facility] Morphine Sulfate (Morphine) 2 mg IVPUSH Q2H PRN PRN Reason: Pain (severe 7-10) Ondansetron HCl (Zofran) 4 mg IVPUSH Q4H PRN PRN Reason: Nausea Pilocarpine HCl (Pilocar 4% Ophth Soln) 0 ml EYEBOTH QID [facility] Last Admin: 10/29/17 06:27 Dose: 1 drop Sodium Chloride (Saline Flush) 10 ml FLUSH ASDIRECTED PRN PRN Reason: Keep Vein Open Last Admin: 10/27/17 18:50 Dose: 10 ml Sodium Chloride (Saline Flush) 2.5 ml FLUSH ASDIRECTED PRN PRN Reason: Keep Vein Open Last Admin: 10/27/17 18:50 Dose: 2.5 ml Tramadol HCl (Ultram) 50 mg PO Q4H PRN PRN Reason: Pain Last Admin: 10/29/17 08:55 Dose: 50 mg Discontinued Medications Hydralazine HCl (Apresoline) 10 mg IVPUSH ONETIME ONE Stop: 10/27/17 18:31 Last Admin: 10/27/17 18:47 Dose: 10 mg Magnesium Sulfate 4 gm/ Premix 100 mls @ 50 mls/hr IV ONETIME ONE Stop: 10/28/17 13:24 Last Admin: 10/28/17 12:11 Dose: 50 mls/hr Ciprofloxacin/Dextrose 400 mg/ (Premix) 200 mls @ 200 mls/hr IV Q12H [facility] Last Infusion: 10/28/17 22:50 Dose: Infused Ketorolac Tromethamine (Toradol) 30 mg IM ONETIME ONE Stop: 10/27/17 18:01 Last Admin: 10/27/17 18:04 Dose: 30 mg Morphine Sulfate (Morphine) 2 mg IVPUSH ONETIME ONE Stop: 10/27/17 19:06 Last Admin: 10/27/17 19:11 Dose: 2 mg Morphine Sulfate (Morphine) 2 mg IVPUSH Q2H PRN PRN Reason: Pain (severe 7-10) Stop: 10/28/17 20:40 Last Admin: 10/27/17 23:33 Dose: 2 mg Oxycodone HCl (Oxycodone) 5 mg PO Q4H PRN PRN Reason: Pain (moderate 4-6) Last Admin: 10/28/17 19:38 Dose: 5 mg Potassium Chloride (Klor-Con M20) 40 meq PO ONETIME ONE Stop: 10/28/17 08:10 Last Admin: 10/28/17 09:01 Dose: 40 meq - Exam General: Alert, Oriented, Cooperative, Other (slightly disoriented, but easily reoriented. ) Neck: Supple Lungs: Clear to Auscultation, Normal Respiratory Effort Cardiovascular: Regular Rate, Regular Rhythm, Murmurs Back Exam: Normal Inspection, Full Range of Motion (with some pain, but readjusts per self in bed easily) Neurological: Other (some confusion noted.) Psy/Mental Status: Alert, Normal Affect, Normal Mood - Problem List & Annotations (1) Thoracic compression fracture SNOMED Code(s): 865283422 Code(s): S22.000A - WEDGE COMPRESSION FRACTURE OF UNSP THORACIC VERTEBRA, INIT Status: Acute Current Visit: Yes Qualifiers: Encounter type: initial encounter Fracture type: closed Qualified Code(s) : S22.000A - Wedge compression fracture of unspecified thoracic vertebra, initial encounter for closed fracture (2) Rib fracture SNOMED Code(s): 64228147 Code(s): S22.39XA - FRACTURE OF ONE RIB, UNSP SIDE, INIT FOR CLOS FX Status : Acute Current Visit: Yes Qualifiers: Encounter type: initial encounter Rib fracture type: single rib Fracture type: closed Laterality: left Qualified Code(s): S22.32XA - Fracture of one rib, left side, initial encounter for closed fracture (3) Hypokalemia SNOMED Code(s): 46428552 Code(s): E87.6 - HYPOKALEMIA Status: Acute Current Visit: Yes (4) Hypomagnesemia SNOMED Code(s): 459685148 Code(s): E83.42 - HYPOMAGNESEMIA Status: Acute Current Visit: Yes (5) Hyponatremia SNOMED Code(s): 22135121 Code(s): E87.1 - HYPO-OSMOLALITY AND HYPONATREMIA Status: Acute Current Visit: Yes (6) Glaucoma SNOMED Code(s): 00326163 Code(s): H40.9 - UNSPECIFIED GLAUCOMA Status: Chronic Current Visit: Yes (7) HTN (hypertension) SNOMED Code(s): 83896678 Code(s): I10 - ESSENTIAL (PRIMARY) HYPERTENSION Status: Chronic Current Visit: Yes - Problem List Review Problem List Initiated/Reviewed/Updated: Yes - My Orders Last 24 Hours: My Active Orders 10/29/17 08:32 traMADol [Ultram] 50 mg PO Q4H PRN 10/29/17 09:00 Docusate Sodium [Colace] 100 mg PO DAILY - Plan Plan:: 77 yo female admitted following a fall with acute L3 veterbral body fracture, hyponatremia, and likely acute kidney injury. 1. Fall with thoracic compression fracture: Improving. Appears to be confused today, may be from narcotics. Will stop oxycodone and trial Tramadol for pain Continue Tylenol. No NSAIDs due to PITO. Continue PT. 2. Hyponatremia: Stable. Na 127. Reviewed previous labwork from our facility as well as PCP, Dr Jean Baptiste. Na typically runs 130. will continue IVFs today and recheck this afternoon. 3. PITO: Improving. Continue IVFs and continue PO fluids. BUN 14 and Cr 1.4 4. UTI: Asymptomatic. Pyuria and mod. leukocyte esterase. Cipro IV started. 5. Glaucoma: Continue eye drops. VTE prophylaxis: Lovenox. Dispo: 1 day
[2017-10-29] MEDS: Ciprofloxacin in D5W 400 MG in Premix Bag 1 BAG IV SCH ×4 (10:04→14:15)
[2017-10-29] MEDS ORDERED: Calcium Carbonate 500 MG Tab.Chew PO ONE (21:35)
[2017-10-30] MEDS: Heparin Sodium 5,000 Units/ML Vial SUBCUT SCH ×2 (00:25→09:21)
[2017-10-30] MEDS: Pilocarpine 4% Ophth Soln 15 ML Bot EYEBOTH SCH ×3 (00:25→12:06)
[2017-10-30] MEDS: Sodium Chloride 0.9% 1,000 ML IV SCH (01:37)
[2017-10-30] MEDS: Erythromycin Base 0.5% Ophth Oint 1 GM Tube EYEBOTH SCH (06:08)
[2017-10-30] MEDS: Dorzolamide/Timolol 2%-0.5% Ophth Soln 10 ML Bottle EYEBOTH SCH (09:21)
[2017-10-30] MEDS: Ciprofloxacin in D5W 400 MG in Premix Bag 1 BAG IV SCH ×2 (09:21)
[2017-10-30] MEDS: Docusate Sodium 100 MG Cap PO SCH ×2 (09:21→09:44)
[2017-10-30] MEDS: traMADol 50 MG Tab PO PRN ×2 (09:43→12:44)
[2017-10-30 10:06] VITALS: BP 154/78
--- NOTE | 2017-10-30 12:33 | PCM.DCSUM1 ---
Discharge Summary - Hospital Course HPI Initial Comments: 77 yo female admitted 10/27/17 following a fall with acute L3 veterbral body fracture, hyponatremia, and likely acute kidney injury with pmh of htn and glacoma. Brief History: 77 yo female presented to the ED with back pain following a fall. Patient tripped outside on the ice landing on her back. She then developed lower back pain. She denied any lightheadedness or dizziness. She denied any chest pain, fevers or chills. CXR reported nondisplaced fracture in the left 7th rib. X-ray of lumbar spin reported acute anterior buckle fracture in the L3 vertebral body, and moderate compression fracture of T12 that was likely chronic. CT of the lumbar spine showed compression fractures of T10, T11 , and T12. At the T10 level, there was approximately 50-60% compression in the T11 level there was approximately 40% compression. There was no evidence of significant narrowing of the spinal canal at either the levels, both compressions were thought to be probably chronic. At T12 there was a compression fracture which appeared recent with minimal narrowing of the spinal canal. - Discharge Data Discharge Date: 10/30/17 Discharge Disposition: Home, Self-Care 01 Condition: Good - Patient Summary/Data Consults: Consultations 10/27/17 20:39 PT Evaluation and Treatment [CONS] Routine - Patient Instructions Diet: Usual Diet as Tolerated Activity: Rest and Relax Today Driving: Do Not Drive Showering/Bathing: May Shower Notify Provider of: Fever, Increased Pain, Swelling and Redness, Nausea and/or Vomiting Other/Special Instructions: Take medications as prescribed. Follow-up with Dr. Jean Baptiste PCP as scheduled next week. Return to ED if new or worsening symptoms. - Discharge Plan Prescriptions/Med Rec: Ciprofloxacin HCl [Cipro] 500 mg PO Q18H #3 tablet Docusate Sodium [Colace] 100 mg PO DAILY #30 cap traMADol [Ultram] 50 mg PO Q4H PRN #20 tablet PRN Reason: Pain Home Medications: Home Meds Dorzolamide HCl/Timolol Maleat [Dorzolamide-Timolol Eye Drops] 1 drop EYEBOTH BID 03/01/15 [History] Pilocarpine HCl 1 drop EYEBOTH QID 03/01/15 [History] Erythromycin Base [Erythromycin 0.5% Ophth Oint] 1 applic OP Q4H 10/27/17 [ History] Acetaminophen [Tylenol] 650 mg PO Q4H PRN tablet 10/29/17 [Rx] Ciprofloxacin HCl [Cipro] 500 mg PO Q18H #3 tablet 10/29/17 [Rx] Docusate Sodium [Colace] 100 mg PO DAILY #30 cap 10/29/17 [Rx] traMADol [Ultram] 50 mg PO Q4H PRN #20 tablet 10/29/17 [Rx] Patient Handouts: Hyponatremia, [id number], Tramadol tablets, Fall Prevention in the Home, Ciprofloxacin tablets, Docusate capsules Referrals: Hima Jean Baptiste MD [Physician] - 11/02/17 10:30 am - Discharge Summary/Plan Comment DC Time >30 min.: Yes Discharge Summary/Plan Comment: 77 yo female admitted 10/27/17 following a fall with acute L3 veterbral body fracture, hyponatremia, and likely acute kidney injury with pmh of htn and glacoma. 77 yo female presented to the ED with back pain following a fall. Patient tripped outside on the ice landing on her back. She then developed lower back pain. She denied any lightheadedness or dizziness. She denied any chest pain, fevers or chills. CXR reported nondisplaced fracture in the left 7th rib. X- ray of lumbar spin reported acute anterior buckle fracture in the L3 vertebral body, and moderate compression fracture of T12 that was likely chronic. CT of the lumbar spine showed compression fractures of T10, T11, and T12. At the T10 level, there was approximately 50-60% compression in the T11 level there was approximately 40% compression. There was no evidence of significant narrowing of the spinal canal at either the levels, both compressions were thought to be probably chronic. At T12 there was a compression fracture which appeared recent with minimal narrowing of the spinal canal. Patient was admitted and treated for pain, hyponatremia, and acute kidney injury most likely secondary to dehydration. She also had some hyponatremia which seemed to be chronic in nature as recent hospitalizations showed sodium baseline in the 128 to 130 range. Potassium and magnesium were supplemented and acute kidney injury improved with IV fluid resuscitation. During her stay she was also found to have a urinary tract infection which could've led to her imbalance and fall. She was treated with ciprofloxacin. On day of discharge patient was in good condition and was discharged with follow -up appointments with her primary care physician Dr. Jean Baptiste as well as a prescription for ciprofloxacin, tramadol, and docusate. She was instructed to return to emergency department if she had any new or worsening symptoms. - General Info Date of Service: 10/30/17 Admission Dx/Problem (Free Text: Fall, hyponatremia Subjective Update: Doing well this morning. States she slept really well. Having some back pain but no more than before and actually somewhat improved. Ready to be discharged today. Functional Status: Reports: Pain Controlled, Tolerating Diet, Ambulating - Review of Systems General: Denies: Fever, Weakness, Fatigue HEENT: Denies: Headaches, Visual Changes Pulmonary: Denies: Shortness of Breath, Pleuritic Chest Pain, Hemoptysis Cardiovascular: Denies: Chest Pain, Palpitations, Edema Gastrointestinal: Denies: Abdominal Pain, Constipation, Diarrhea, Nausea, Vomiting Genitourinary: Denies: Dysuria, Hematuria Musculoskeletal: Reports: Back Pain. Denies: Neck Pain Skin: Denies: Cyanosis Neurological: Denies: Confusion, Dizziness, Headache Psychiatric: Denies: Confusion - Patient Data Vitals - Most Recent: Last Vital Signs Temp 98.9 F 10/30/17 08:00 Pulse 78 10/30/17 08:00 Resp 16 10/30/17 08:00 BP 154/78 H 10/30/17 08:00 Pulse Ox 96 10/30/17 08:00 Weight - Most Recent: 37.655 kg I&O - Last 24 hours: Intake & Output 10/29/17 10/30/17 10/30/17 22:59 06:59 14:59 Intake Total 2080 850 1200 Output Total 500 600 Balance 0784 059 [id number] Lab Results - Last 24 hrs: Laboratory Results - last 24 hr 10/29/17 Range/Units 12:55 Sodium 129 L (136-146) mmol/L Potassium 4.4 (3.5-5.1) mmol/L Chloride 100 (98-110) mmol/L Carbon Dioxide 21 (21-31) mmol/L BUN 15 (6.0-23.0) mg/dL Creatinine 1.0 (0.6-1.5) mg/dL Est Cr Clr Drug Dosing 27.12 mL/min Estimated GFR (MDRD) 53.5 ml/min Glucose 106 (60-110) mg/dL Calcium 8.4 L (8.8-10.8) mg/dL Med Orders - Current: Current Medications Acetaminophen (Tylenol) 650 mg PO Q4H PRN PRN Reason: Pain (Mild 1-3)/fever Docusate Sodium (Colace) 100 mg PO DAILY [facility] Last Admin: 10/30/17 09:44 Dose: Not Given Dorzolamide/Timolol (Cosopt 2%-0.5% Ophth Soln) 0 ml EYEBOTH BID [facility] Last Admin: 10/30/17 09:21 Dose: 1 drop Erythromycin (Erythromycin 0.5% Ophth Oint) 0.2 gm EYEBOTH TID [facility] Last Admin: 10/30/17 06:08 Dose: 1 applic Heparin Sodium (Porcine) (Heparin Sodium) 5,000 units SUBCUT Q8H [facility] Last Admin: 10/30/17 09:21 Dose: 5,000 units Sodium Chloride (Normal Saline) 1,000 mls @ 125 mls/hr IV STAT [facility] Last Admin: 10/30/17 01:37 Dose: 125 mls/hr Ciprofloxacin/Dextrose 400 mg/ (Premix) 200 mls @ 200 mls/hr IV Q18H [facility] Last Admin: 10/30/17 09:21 Dose: 200 mls/hr Morphine Sulfate (Morphine) 2 mg IVPUSH Q2H PRN PRN Reason: Pain (severe 7-10) Last Admin: 10/29/17 10:17 Dose: 2 mg Ondansetron HCl (Zofran) 4 mg IVPUSH Q4H PRN PRN Reason: Nausea Pilocarpine HCl (Pilocar 4% Ophth Soln) 0 ml EYEBOTH QID [facility] Last Admin: 10/30/17 12:06 Dose: 1 drop Sodium Chloride (Saline Flush) 10 ml FLUSH ASDIRECTED PRN PRN Reason: Keep Vein Open Last Admin: 10/27/17 18:50 Dose: 10 ml Sodium Chloride (Saline Flush) 2.5 ml FLUSH ASDIRECTED PRN PRN Reason: Keep Vein Open Last Admin: 10/27/17 18:50 Dose: 2.5 ml Tramadol HCl (Ultram) 50 mg PO Q4H PRN PRN Reason: Pain Last Admin: 10/30/17 09:43 Dose: 50 mg Discontinued Medications Calcium Carbonate/Glycine (Tums) 1,000 mg PO ONETIME ONE Stop: 10/29/17 21:36 Last Admin: 10/29/17 22:07 Dose: 1,000 mg Hydralazine HCl (Apresoline) 10 mg IVPUSH ONETIME ONE Stop: 10/27/17 18:31 Last Admin: 10/27/17 18:47 Dose: 10 mg Magnesium Sulfate 4 gm/ Premix 100 mls @ 50 mls/hr IV ONETIME ONE Stop: 10/28/17 13:24 Last Admin: 10/28/17 12:11 Dose: 50 mls/hr Ciprofloxacin/Dextrose 400 mg/ (Premix) 200 mls @ 200 mls/hr IV Q12H [facility] Last Admin: 10/29/17 10:04 Dose: Not Given Ketorolac Tromethamine (Toradol) 30 mg IM ONETIME ONE Stop: 10/27/17 18:01 Last Admin: 10/27/17 18:04 Dose: 30 mg Morphine Sulfate (Morphine) 2 mg IVPUSH ONETIME ONE Stop: 10/27/17 19:06 Last Admin: 10/27/17 19:11 Dose: 2 mg Morphine Sulfate (Morphine) 2 mg IVPUSH Q2H PRN PRN Reason: Pain (severe 7-10) Stop: 10/28/17 20:40 Last Admin: 10/27/17 23:33 Dose: 2 mg Oxycodone HCl (Oxycodone) 5 mg PO Q4H PRN PRN Reason: Pain (moderate 4-6) Last Admin: 10/28/17 19:38 Dose: 5 mg Potassium Chloride (Klor-Con M20) 40 meq PO ONETIME ONE Stop: 10/28/17 08:10 Last Admin: 10/28/17 09:01 Dose: 40 meq - Exam Quality Assessment: Reports: DVT Prophylaxis General: Reports: Alert, Oriented, Cooperative, No Acute Distress HEENT: Reports: Pupils Equal, Pupils Reactive, EOMI, Mucous Membr. Moist/[place] Neck: Reports: Supple Lungs: Reports: Clear to Auscultation, Normal Respiratory Effort Cardiovascular: Reports: Regular Rate, Regular Rhythm GI/Abdominal Exam: Normal Bowel Sounds, Soft, Non-Tender, No Organomegaly, No Distention, Pelvis Stable (Female) Exam: Deferred Rectal (Female) Exam: Deferred Back Exam: Reports: Normal Inspection, Vertebral Tenderness Extremities: Normal Inspection, Non-Tender, No Pedal Edema, Normal Capillary Refill Skin: Reports: Warm, Dry, Intact Neurological: Reports: No New Focal Deficit Psy/Mental Status: Reports: Alert, Normal Affect, Normal Mood *Q Meaningful Use (DIS) - VTE *Q VTE Criteria *Q: - Stroke *Q Stroke Criteria *Q: - AMI *Q AMI Criteria *Q:
== END 2017-10-30 13:10 | disposition home or self-care (01) ==
LOC: MW.ED 16:46 → MW.MS 19:35
PROVIDERS: ADMIT Internal Medicine; ATTEND Internal Medicine
DX: S32.039A Unspecified fracture of third lumbar vertebra, initial encounter for closed fracture (principal); S22.080A Wedge compression fracture of T11-T12 vertebra, initial encounter for closed fracture; S22.070A Wedge compression fracture of T9-T10 vertebra, initial encounter for closed fracture; S22.32XA Fracture of one rib, left side, initial encounter for closed fracture; E87.1 Hypo-osmolality and hyponatremia; I10 Essential (primary) hypertension; H40.9 Unspecified glaucoma; N17.9 Acute kidney failure, unspecified; E87.6 Hypokalemia; E83.42 Hypomagnesemia; N39.0 Urinary tract infection, site not specified; Z79.899 Other long term (current) drug therapy; W00.0XXA Fall on same level due to ice and snow, initial encounter; Z88.5 Allergy status to narcotic agent; Z91.040 Latex allergy status; Z91.018 Allergy to other foods
CPT/HCPCS: 36415; 71101; 72100; 72131; 72170; 80048; 80053; 81001; 83735; 85025; 96361; 96372; 96374; 96375; 97110; 97161; 97530; 99285; A9270; J0360; J0744; J1644; J1885; J2270; J3475; J7040; 96365; 96366; 96376; 99283; G0378

== ENCOUNTER 2019-04-03 12:04 | Emergency (ER) | payer MEDICARE, OTHER ==
[2019-04-03] MEDS ORDERED: Bacitracin Oint 1 GM U/D Packet TOP ONE (12:20)
--- NOTE | 2019-04-03 12:20 | EDM.PDOC ---
ED HPI GENERAL MEDICAL PROBLEM - General Chief Complaint: Trauma Stated Complaint: FELL Time Seen by Provider: 04/03/19 12:05 Source of Information: Reports: Patient History Limitations: Reports: No Limitations - History of Present Illness INITIAL COMMENTS - FREE TEXT/NARRATIVE: HISTORY AND PHYSICAL: Trauma alert was called by triage upon patient arrival due to fall and being on daily aspirin. History of present illness: Patient is an 79-year-old female who presents to the emergency room post fall. She states that she had just returned home from a routine appointment at [facility] with Dr. Jean Baptiste. A caregiver was helping her ambulate up the stairs to her house, when she fell. The caregiver states that she saw her lose her balance and had fallen down 3-5 steps, hitting the back of her head. Currently the patient is complaining of headache with light sensitivity, laceration to the left upper forehead and abrasion bridge of nose, right shoulder and elbow pain. Prior to the fall, patient states she felt well and had no complaints or concerns. Patient denies any fever, chills, change in vision, chest pain, back pain, shortness of breath or cough. Denies any abdominal pain, nausea, vomiting , diarrhea, constipation or dysuria. Patient has been eating and drinking appropriately. Patient has a past medical history of hypertension, glaucoma, Alzheimer's disease. Review of systems: As per history of present illness and below otherwise all systems reviewed and negative. Past medical history: As per history of present illness and as reviewed below otherwise noncontributory. Surgical history: As per history of present illness and as reviewed below otherwise noncontributory. Social history: See social history for further information Family history: As per history of present illness and as reviewed below otherwise noncontributory. Physical exam: General: Well-developed and well-nourished 79-year-old female. Alert and oriented. Nontoxic appearing and in no acute distress. HEENT: 2 cm laceration above the left eyebrow, abrasion across the bridge of the nose. No scalp tenderness, normocephalic, pupils equal and reactive bilaterally, negative for conjunctival pallor or scleral icterus, mucous membranes moist, TMs normal bilaterally, throat clear, neck supple, nontender, trachea midline. No drooling or trismus noted. No meningeal signs. No hot potato voice noted. Lungs: Clear to auscultation, breath sounds equal bilaterally, chest nontender. Heart: S1S2, regular rate and rhythm without overt murmur Abdomen: Soft, nondistended, nontender. Negative for masses. Negative for costovertebral tenderness. Pelvis: Stable nontender. Genitourinary/Rectal: Deferred. C-spine/Back: No pinpoint vertebral tenderness upon palpation. No crepitus, step -offs or obvious deformities. Mild paraspinous tenderness to the cervical spine bilaterally. Patient is ambulatory into the emergency room without deficit, uses a walker and needs stand by assist. Able to lift her toes up towards her nose and pushed down with equal strength bilaterally of lower extremities. Denies any urinary or fecal incontinence. Denies any numbness, tingling or saddle paresthesia. Skin: 2 cm laceration above the left eyebrow. The professional abrasion across the bridge of her nose. Bruising and soft tissue swelling of the right elbow. Small skin tear noted to right hand. No lesions or rashes noted. Extremities: Limited range of motion of the right shoulder. Pain with flexion and extension of the right elbow. Otherwise moves all extremities per self without difficulty or deficits. Strong radial pulses bilaterally. Neurovascular unremarkable. Neuro: Awake, alert, oriented. Cranial nerves II through XII unremarkable. Cerebellum unremarkable. Motor and sensory unremarkable throughout. Exam nonfocal. Notes: Head CT shows no intracranial findings. Advanced small vessel ischemic changes noted. Degenerative changes without any acute findings on the CT of the cervical spine. We currently do not have any orthopedics available. We did inform the general surgeon on-call, Dr. Pelayo of this patient. Right shoulder shows no acute osseous abnormality however there is osteopenic. There is a displaced comminuted and partially retracted olecranon fracture noted with the overlying tissue swelling and joint effusion. 1250: Family at bedside does request to check with [facility] to see if they would be able to accept an orthopedic patient. [facility] was consulted, unfortunately they do not have the equipment to accept this patient. Family was made aware. They're agreeable to [facility] [place]. 1300: [facility], was consulted on this patient. Dr Heard (ER ) and Dr Quinn (ortho) are aware of the patient and agreeable to accepting her. Patient will go via ground EMS. Patient and family are aware of the transfer and agreeable. Diagnostics: CBC, CMP, INR, Troponin, EKG, Head CT, C-spine CT, Right Shoulder, Right Elbow Therapeutics: 1% lidocaine, wound care, bacitracin Impression: Fall Head injury Displaced comminuted olecranon fracture, right Right shoulder injury Facial laceration Plan: Transfer to [facility] in [place] Definitive disposition and diagnosis as appropriate pending reevaluation and review of above. head Pain Score (Numeric/FACES): 10 - Related Data Allergies Allergy/AdvReac Type Severity Reaction Status Date / Time codeine Allergy Change Verified 04/03/19 12:18 Mental Status Latex, Natural Rubber Allergy Other Verified 04/03/19 12:18 avocado Allergy Unknown Airway Uncoded 09/02/18 19:45 Tightness strawberry Allergy Unknown Hives Uncoded 09/02/18 19:45 kiwi Allergy Other Uncoded 09/02/18 19:45 Home Meds: Home Meds Dorzolamide HCl/Timolol Maleat [Dorzolamide-Timolol Eye Drops] 1 drop EYEBOTH BID 03/01/15 [History] Pilocarpine HCl 1 drop EYEBOTH QID 03/01/15 [History] Erythromycin Base [Erythromycin 0.5% Ophth Oint] 1 applic OP Q4H 10/27/17 [ History] Acetaminophen [Tylenol] 650 mg PO Q4H PRN tablet 10/29/17 [Rx] Docusate Sodium [Colace] 100 mg PO DAILY #30 cap 10/29/17 [Rx] traMADol [Ultram] 50 mg PO Q4H PRN #20 tablet 10/29/17 [Rx] Ferrous Sulfate [Slow Fe] 142 mg PO DAILY 30 Days #30 tablet.er 09/08/18 [Rx] Lisinopril [Prinivil] 20 mg PO DAILY 30 Days #60 tablet 09/08/18 [Rx] Sodium Chloride 1 gm PO DAILY #30 tablet 09/08/18 [Rx] Past Medical History HEENT History: Reports: Glaucoma Cardiovascular History: Reports: Hypertension [employer] History: Reports: Neurological History: Reports: Alzheimers Disease - Infectious Disease History Infectious Disease History: Reports: Chicken Pox, Measles, Mumps - Past Surgical History Other Musculoskeletal Surgeries/Procedures:: right hip fracture with plate and screws Social & Family History - Family History Family Medical History: Noncontributory HEENT: Reports: None - Caffeine Use Caffeine Use: Reports: Coffee, Tea Review of Systems - Review of Systems Review Of Systems: ROS reveals no pertinent complaints other than HPI. ED EXAM, GENERAL - Physical Exam Exam: See Below (See dictation) Course - Vital Signs Last Recorded V/S: Last Vital Signs Temp 97.1 F 04/03/19 12:10 Pulse 100 04/03/19 12:10 Resp 16 04/03/19 12:10 BP 206/93 H 04/03/19 12:10 Pulse Ox 98 04/03/19 12:10 - Orders/Labs/Meds Orders: Active Orders 24 hr Category Date Time Status Admission Status [Patient Status] [ADT] Stat ADT 04/03/19 13:05 Active EKG Documentation Completion [RC] STAT Care 04/03/19 12:10 Active CBC WITH AUTO DIFF [HEME] Stat Lab 04/03/19 12:10 Ordered COMPREHENSIVE METABOLIC PN,CMP [CHEM] Stat Lab 04/03/19 12:10 Ordered INR,PT,PROTHROMBIN TIME [COAG] Stat Lab 04/03/19 12:10 Ordered TROPONIN I [CHEM] Stat Lab 04/03/19 12:10 Ordered Meds: Medications Discontinued Medications Generic Name Dose Route Start Last Admin Trade Name Freq PRN Reason Stop Dose Admin Bacitracin 1 dose 04/03/19 12:20 Bacitracin Oint 1 Gm TOP 04/03/19 12:21 ONETIME ONE Departure - Departure Time of Disposition: 13:21 Disposition: DC/Tfer to Acute Hospital 02 Clinical Impression: Abrasion Fall Qualifiers: Encounter type: initial encounter Qualified Code(s): W19.XXXA - Unspecified fall, initial encounter Olecranon fracture Qualifiers: Encounter type: initial encounter Fracture type: closed Laterality: right Qualified Code(s): S52.021A - Displaced fracture of olecranon process without intraarticular extension of right ulna, initial encounter for closed fracture Facial laceration Qualifiers: Encounter type: initial encounter Qualified Code(s): S01.81XA - Laceration without foreign body of other part of head, initial encounter Right shoulder injury Qualifiers: Encounter type: initial encounter Qualified Code(s): S49.91XA - Unspecified injury of right shoulder and upper arm, initial encounter Head injury Qualifiers: Encounter type: initial encounter Qualified Code(s): S09.90XA - Unspecified injury of head, initial encounter - Discharge Information Referrals: PCP,Unknown [Primary Care Provider] - Forms: ED Department Discharge - My Orders Last 24 Hours: My Active Orders 04/03/19 12:10 EKG Documentation Completion [RC] STAT CBC WITH AUTO DIFF [HEME] Stat COMPREHENSIVE METABOLIC PN,CMP [CHEM] Stat INR,PT,PROTHROMBIN TIME [COAG] Stat TROPONIN I [CHEM] Stat 04/03/19 13:05 Admission Status [Patient Status] [ADT] Stat - Assessment/Plan Last 24 Hours: My Active Orders 04/03/19 12:10 EKG Documentation Completion [RC] STAT CBC WITH AUTO DIFF [HEME] Stat COMPREHENSIVE METABOLIC PN,CMP [CHEM] Stat INR,PT,PROTHROMBIN TIME [COAG] Stat TROPONIN I [CHEM] Stat 04/03/19 13:05 Admission Status [Patient Status] [ADT] Stat
[2019-04-03 12:21] VITALS: BP 206/93; PULSE 100
--- NOTE | 2019-04-03 12:44 | CT ---
EXAMINATION: Non contrast CT head. Coronal and sagittal reformats. HISTORY: Fall FINDINGS: No evidence of intra or extra axial hemorrhage, mass, midline shift, hydrocephalus or edema. Prominent subcortical and periventricular white matter hypodensities noted bilaterally, right greater than left. No hypoattenuation changes in the major vascular territories to suggest acute infarct. No abnormal intracranial calcifications are detected. Mild vascular calcifications. Paranasal sinuses and mastoid air cells are well aerated without substantial findings. Pituitary fossa appears unremarkable. Orbits and globes are symmetric. Tiny left supraorbital soft tissue hematoma. Calvarium is intact. No evidence of skull fracture. IMPRESSION: 1. No acute intracranial findings. 2. Advanced small vessel ischemic changes.
--- NOTE | 2019-04-03 12:52 | CT ---
EXAMINATION: CT cervical spine HISTORY: Pain COMPARISON: None TECHNIQUE: Axial CT imaging obtained through the cervical spine without contrast. Coronal and sagittal reconstructions obtained. FINDINGS: There is minimal anterolisthesis C4 on C5. Otherwise cervical spinal alignment is normal. Vertebral body heights appear maintained. There is no fracture or acute osseous abnormality. Mild facet arthritic changes noted within the mid cervical spine. Advanced degenerative changes noted at the temporomandibular joints. Bone mineralization appears osteopenic. Paravertebral soft tissues appear unremarkable. Scarring within the lung apices. IMPRESSION: 1. Degenerative changes without acute findings.
--- NOTE | 2019-04-03 13:08 | CR ---
EXAMINATION: Right shoulder HISTORY: Pain COMPARISON: None TECHNIQUE: 2 views FINDINGS/IMPRESSION: No definitive acute osseous abnormality identified however the osseous structures are osteopenic. Mild acromioclavicular osteoarthritic changes. Calcified granuloma within the right lung.
--- NOTE | 2019-04-03 13:09 | CR ---
EXAMINATION: Right elbow HISTORY: Fall COMPARISON: None TECHNIQUE: 3 views FINDINGS/IMPRESSION: There is a displaced comminuted and partially retracted olecranon fracture noted with overlying soft tissue swelling and joint effusion. Radiocapitellar alignment is preserved. Osseous structures otherwise appear osteopenic.
[2019-04-03 13:49] LABS: BLOOD UREA NITROGEN,BUN 16 mg/dL (7.0-18.0); CARBON DIOXIDE,CO2 26.4 mmol/L (21.0-32.0); CHLORIDE,CL 91 mmol/L (98-107); GLUCOSE RANDOM 112 mg/dL (74-106); SODIUM,NA 123 mmol/L (136-145)
== END 2019-04-03 14:25 ==
LOC: MW.ED 12:04
DX: S52.021A Displaced fracture of olecranon process without intraarticular extension of right ulna, initial encounter for closed fracture (principal); S01.81XA Laceration without foreign body of other part of head, initial encounter; S61.411A Laceration without foreign body of right hand, initial encounter; I10 Essential (primary) hypertension; G30.9 Alzheimer's disease, unspecified; F02.80 Dementia in other diseases classified elsewhere, unspecified severity, without behavioral disturbance, psychotic disturbance, mood disturbance, and anxiety; Z88.5 Allergy status to narcotic agent; Z91.018 Allergy to other foods; Z91.040 Latex allergy status; Z79.899 Other long term (current) drug therapy; Z91.048 Other nonmedicinal substance allergy status; Z79.891 Long term (current) use of opiate analgesic; Z79.82 Long term (current) use of aspirin; W10.9XXA Fall (on) (from) unspecified stairs and steps, initial encounter
CPT/HCPCS: 36415; 70450; 70450-26; 72125; 72125-26; 73030-26-RT; 73030-RT; 73080-26-RT; 73080-RT; 80053; 84484; 85025; 85610; 93005; 99285; 99285-25

== ENCOUNTER 2019-06-14 08:23 | Emergency (ER) | payer MEDICARE, OTHER ==
[2019-06-14] MEDS ORDERED: Sodium Chloride 0.9% 2.5 ML Syringe FLUSH PRN (08:35)
[2019-06-14] MEDS ORDERED: Sodium Chloride 0.9% 10 ML Syringe FLUSH PRN (08:35)
[2019-06-14] MEDS ORDERED: Sodium Chloride 0.9% 1,000 ML IV ONE (08:36)
--- NOTE | 2019-06-14 08:37 | EDM.PDOC ---
ED HPI GENERAL MEDICAL PROBLEM - General Chief Complaint: General Stated Complaint: SEIZURE Time Seen by Provider: 06/14/19 08:35 Source of Information: Reports: EMS History Limitations: Reports: Altered Mental Status - History of Present Illness INITIAL COMMENTS - FREE TEXT/NARRATIVE: History of present illness: []Patient was sent in by ambulance from the fall after having what was described as seizure. EMS was initially called out as a stroke code but when they arrived she was post ictal with drool. She arrived to the ED hypertensive but alert, answering questions and no complaints of pain. Since [id number] is at the bedside and states that she has had seizures in the past and that she has pre-existing hypertension this is not unusual for her. Review of systems: As per history of present illness and below otherwise all systems reviewed and negative. Past medical history: As per history of present illness and as reviewed below otherwise noncontributory. Surgical history: As per history of present illness and as reviewed below otherwise noncontributory. Social history: No reported history of drug or alcohol abuse. Family history: As per history of present illness and as reviewed below otherwise noncontributory. Physical exam: General: Well developed, well nourished in NAD HEENT: Atraumatic, normocephalic, pupils reactive, negative for conjunctival pallor or scleral icterus, mucous membranes moist, throat clear, neck supple, nontender, trachea midline. Lungs: Clear to auscultation, breath sounds equal bilaterally, chest nontender. Heart: S1S2, regular, negative for clicks, rubs, or JVD. Abdomen: NABS, Soft, nondistended, nontender. Negative for masses or hepatosplenomegaly. Negative for costovertebral tenderness. Pelvis: Stable nontender. Genitourinary: Deferred. Rectal: Deferred. Extremities: Atraumatic, negative for cords or calf pain. Neurovascular unremarkable. Neuro: Awake, alert, oriented. Cranial nerves II through XII unremarkable. Cerebellum unremarkable. Motor and sensory unremarkable throughout. Exam nonfocal. Skin:warm and dry Diagnostics: CBC, chemistry, UA Therapeutics: Sodium chloride ED Course: Stable Impression: Medical screening exam Prescriptions: None Plan: Take meds as directed, follow up with your primary care physician, return to ER if symptoms worsen or change. Definitive disposition and diagnosis as appropriate pending reevaluation and review of above. - Related Data Allergies Allergy/AdvReac Type Severity Reaction Status Date / Time codeine Allergy Change Verified 06/14/19 08:46 Mental Status Latex, Natural Rubber Allergy Other Verified 06/14/19 08:46 phenazopyridine Allergy Rash Verified 06/14/19 08:46 [From Pyridium] avocado Allergy Unknown Airway Uncoded 06/14/19 08:46 Tightness strawberry Allergy Unknown Hives Uncoded 06/14/19 08:46 kiwi Allergy Other Uncoded 06/14/19 08:46 Home Meds: Home Meds Dorzolamide HCl/Timolol Maleat [Dorzolamide-Timolol Eye Drops] 1 drop EYEBOTH BID 03/01/15 [History] Pilocarpine HCl 1 drop EYEBOTH QID 03/01/15 [History] Ferrous Sulfate [Slow Fe] 142 mg PO DAILY 30 Days #30 tablet.er 09/08/18 [Rx] Sodium Chloride 1 gm PO DAILY #30 tablet 09/08/18 [Rx] Brimonidine/Timolol [Combigan 0.2%/0.5% Ophth Soln] 1 drop EYEBOTH Q12H [History] Latanoprost [Xalatan] 1 drop EYEBOTH BEDTIME 04/03/19 [History] Lidocaine 5% [Lidoderm 5%] 1 patch TOP QAM 04/03/19 [History] Lisinopril 20 mg PO DAILY 04/03/19 [History] Ondansetron HCl [Ondansetron] 4 mg PO TID PRN 04/03/19 [History] traMADol [Ultram] 50 mg PO Q8H PRN 04/03/19 [History] Past Medical History HEENT History: Reports: Glaucoma Cardiovascular History: Reports: Hypertension [employer] History: Reports: Neurological History: Reports: Alzheimers Disease - Infectious Disease History Infectious Disease History: Reports: Chicken Pox, Measles, Mumps - Past Surgical History Other Musculoskeletal Surgeries/Procedures:: right hip fracture with plate and screws Social & Family History - Family History Family Medical History: Noncontributory HEENT: Reports: None - Caffeine Use Caffeine Use: Reports: Coffee, Tea ED ROS GENERAL - Review of Systems Review Of Systems: See Below ED EXAM, GENERAL - Physical Exam Exam: See Below Course - Vital Signs Last Recorded V/S: Last Vital Signs Temp 97.5 F 06/14/19 08:25 Pulse 78 06/14/19 09:06 Resp 18 06/14/19 09:06 BP 189/99 H 06/14/19 09:06 Pulse Ox 98 06/14/19 09:06 - Orders/Labs/Meds Orders: Active Orders 24 hr Category Date Time Status CULTURE URINE [RM] Routine Lab 06/14/19 08:57 Ordered Sodium Chloride 0.9% [Normal Saline] 1,000 ml Med 06/14/19 08:36 Active IV .Bolus Sodium Chloride 0.9% [Saline Flush] Med 06/14/19 08:35 Active 10 ml FLUSH ASDIRECTED PRN Sodium Chloride 0.9% [Saline Flush] Med 06/14/19 08:35 Active 2.5 ml FLUSH ASDIRECTED PRN Saline Lock Insert [OM.PC] Stat Oth 06/14/19 08:35 Ordered Medication Orders Sodium Chloride (Normal Saline) 1,000 mls @ 999 mls/hr IV .Bolus ONE Stop: 06/14/19 09:36 Last Admin: 06/14/19 09:02 Dose: 999 mls/hr Sodium Chloride (Saline Flush) 10 ml FLUSH ASDIRECTED PRN PRN Reason: Keep Vein Open Last Admin: 06/14/19 09:02 Dose: 10 ml Sodium Chloride (Saline Flush) 2.5 ml FLUSH ASDIRECTED PRN PRN Reason: Keep Vein Open Last Admin: 06/14/19 09:03 Dose: 2.5 ml Labs: Laboratory Tests 06/14/19 06/14/19 06/14/19 Range/Units 08:30 08:30 08:55 WBC 9.34 (4.0-11.0) K/uL RBC 4.25 L (4.30-5.90) M/uL Hgb 12.3 (12.0-16.0) g/dL Hct 37.5 (36.0-46.0) % MCV 88.2 (80.0-98.0) fL MCH 28.9 (27.0-32.0) pg MCHC 32.8 (31.0-37.0) g/dL RDW Std Deviation 44.4 (28.0-62.0) fl RDW Coeff of Alley 14 (11.0-15.0) % Plt Count 346 (150-400) K/uL MPV 10.40 (7.40-12.00) fL Neut % (Auto) 82.0 H (48.0-80.0) % Lymph % (Auto) 10.2 L (16.0-40.0) % [place] % (Auto) 5.9 (0.0-15.0) % Eos % (Auto) 1.4 (0.0-7.0) % Baso % (Auto) 0.5 (0.0-1.5) % Neut # (Auto) 7.7 H (1.4-5.7) K/uL Lymph # (Auto) 1.0 (0.6-2.4) K/uL [place] # (Auto) 0.6 (0.0-0.8) K/uL Eos # (Auto) 0.1 (0.0-0.7) K/uL Baso # (Auto) 0.1 (0.0-0.1) K/uL Nucleated RBC % 0.0 /100WBC Nucleated RBCs # 0 K/uL Sodium 133 L (136-145) mmol/L Potassium 4.6 (3.5-5.1) mmol/L Chloride 97 L (98-107) mmol/L Carbon Dioxide 21.7 (21.0-32.0) mmol/L BUN 20 H (7.0-18.0) mg/dL Creatinine 1.0 (0.6-1.0) mg/dL Est Cr Clr Drug Dosing 30.96 mL/min Estimated GFR (MDRD) 53.2 ml/min Glucose 100 (74-106) mg/dL Calcium 9.1 (8.5-10.1) mg/dL Total Bilirubin 0.4 (0.2-1.0) mg/dL AST 38 H (15-37) IU/L ALT 30 (14-63) IU/L Alkaline Phosphatase 135 H (46-116) U/L Total Protein 8.1 (6.4-8.2) g/dL Albumin 3.8 (3.4-5.0) g/dL Globulin 4.3 H (2.6-4.0) g/dL Albumin/Globulin Ratio 0.9 (0.9-1.6) Urine Color YELLOW Urine Appearance CLEAR Urine pH 7.0 (5.0-8.0) Ur Specific [place] 1.015 (1.001-1.035) Urine Protein NEGATIVE (NEGATIVE) mg/dL Urine Glucose (UA) NEGATIVE (NEGATIVE) mg/dL Urine Ketones NEGATIVE (NEGATIVE) mg/dL Urine Occult Blood NEGATIVE (NEGATIVE) Urine Nitrite NEGATIVE (NEGATIVE) Urine Bilirubin NEGATIVE (NEGATIVE) Urine Urobilinogen 0.2 (<2.0) EU/dL Ur Leukocyte Esterase NEGATIVE (NEGATIVE) Urine RBC 0-1 (0-2/HPF) Urine WBC 0-1 (0-5/HPF) Ur Epithelial Cells FEW (NONE-FEW) Urine Bacteria FEW (NEGATIVE) Meds: Medications Generic Name Dose Route Start Last Admin Trade Name Freq PRN Reason Stop Dose Admin Sodium Chloride 1,000 mls @ 999 mls/hr 06/14/19 08:36 06/14/19 09:02 Normal Saline IV 06/14/19 09:36 999 mls/hr .Bolus ONE Administration Sodium Chloride 10 ml 06/14/19 08:35 06/14/19 09:02 Saline Flush FLUSH 10 ml ASDIRECTED PRN Administration Keep Vein Open Sodium Chloride 2.5 ml 06/14/19 08:35 06/14/19 09:03 Saline Flush FLUSH 2.5 ml ASDIRECTED PRN Administration Keep Vein Open Departure - Departure Time of Disposition: 09:24 Disposition: Home, Self-Care 01 Condition: Good Clinical Impression: Encounter for medical screening examination - Discharge Information *PRESCRIPTION DRUG MONITORING PROGRAM REVIEWED*: No *COPY OF PRESCRIPTION DRUG MONITORING REPORT IN PATIENT TERESITA: No Instructions: Medical Screening Exam Referrals: PCP,Unknown [Primary Care Provider] - Forms: ED Department Discharge - My Orders Last 24 Hours: My Active Orders 06/14/19 08:35 Sodium Chloride 0.9% [Saline Flush] 10 ml FLUSH ASDIRECTED PRN Sodium Chloride 0.9% [Saline Flush] 2.5 ml FLUSH ASDIRECTED PRN Saline Lock Insert [OM.PC] Stat 06/14/19 08:36 Sodium Chloride 0.9% [Normal Saline] 1,000 ml IV .Bolus 06/14/19 08:57 CULTURE URINE [RM] Routine - Assessment/Plan Last 24 Hours: My Active Orders 06/14/19 08:35 Sodium Chloride 0.9% [Saline Flush] 10 ml FLUSH ASDIRECTED PRN Sodium Chloride 0.9% [Saline Flush] 2.5 ml FLUSH ASDIRECTED PRN Saline Lock Insert [OM.PC] Stat 06/14/19 08:36 Sodium Chloride 0.9% [Normal Saline] 1,000 ml IV .Bolus 06/14/19 08:57 CULTURE URINE [RM] Routine
[2019-06-14 09:13] LABS: CARBON DIOXIDE,CO2 21.7 mmol/L (21.0-32.0); POTASSIUM,K 4.6 mmol/L (3.5-5.1)
[2019-06-14 09:58] VITALS: BP 193/92; PULSE 80
== END 2019-06-14 09:42 | disposition home or self-care (01) ==
LOC: MW.ED 08:23
DX: Z04.89 Encounter for examination and observation for other specified reasons (principal); I10 Essential (primary) hypertension; G30.9 Alzheimer's disease, unspecified; F02.80 Dementia in other diseases classified elsewhere, unspecified severity, without behavioral disturbance, psychotic disturbance, mood disturbance, and anxiety; H40.9 Unspecified glaucoma; Z79.899 Other long term (current) drug therapy; Z88.5 Allergy status to narcotic agent; Z88.6 Allergy status to analgesic agent; Z91.040 Latex allergy status; Z91.018 Allergy to other foods
CPT/HCPCS: 80053; 81001; 85025; 87086; 96360; 99285; J7040; 93005

== ENCOUNTER 2019-09-19 08:37 | Inpatient (IN) | payer MEDICARE, OTHER ==
--- NOTE | 2019-09-19 08:50 | EDM.PDOC ---
ED HPI GENERAL MEDICAL PROBLEM - General Chief Complaint: Neurological Problem Stated Complaint: NO RESPODING Time Seen by Provider: 09/19/19 08:40 Source of Information: Reports: EMS History Limitations: Reports: Altered Mental Status - History of Present Illness INITIAL COMMENTS - FREE TEXT/NARRATIVE: This 79 year old female is admitted to the ED from [facility] unresponsive with pinpoint pupils. She has a good gag reflex. Unable to get further history due to AMS. She had a similar episode a few months ago and was worked up and nothing was found. She was given intranasal Narcan 4mg at the scene by the EMT's. Her PCP is Dr. Hima Jean Baptiste. She has a history of Alzheimer' s Disease. Onset: Today Duration: Other (unknown) Quality: Reports: Other (AMS) - Related Data Allergies Allergy/AdvReac Type Severity Reaction Status Date / Time avocado Allergy Other Verified 09/19/19 09:51 codeine Allergy Other Verified 09/19/19 09:51 kiwi Allergy Other Verified 09/19/19 09:51 Latex, Natural Rubber Allergy Other Verified 09/19/19 09:51 lisinopril Allergy Other Verified 09/19/19 09:51 phenazopyridine Allergy Other Verified 09/19/19 09:51 [From Pyridium] strawberry Allergy Other Verified 09/19/19 09:51 ED ROS GENERAL - Review of Systems Review Of Systems: See Below Constitutional: Reports: No Symptoms HEENT: Reports: No Symptoms Respiratory: Reports: Shortness of Breath (seems to be somewhat SOB but breathing ok with her mouth open. AMS) Cardiovascular: Reports: Other (AMS) Endocrine: Reports: Other (AMS) GI/Abdominal: Reports: Other (AMS) : Reports: Other (AMS) Musculoskeletal: Reports: Other (AMS) Skin: Reports: No Symptoms Neurological: Reports: Other (unable to evaluate due to AMS) - Physical Exam Exam: See Below Exam Limited By: Altered Mental Status General Appearance: Lethargic, Other (AMS) Eye Exam: Bilateral Eye: Abnormal EOM (unable to evaluate due to AMS), Abnormal Pupil (Pinpoint and non-reactive), EOMI (unable to evaluate due to AMS) Ears: Normal External Exam, Normal Canal, Hearing Grossly Normal, Normal TMs Nose: Normal Inspection, Normal Mucosa, No Blood Throat/Mouth: Normal Inspection, Normal Lips, Normal Oropharynx, No Airway Compromise, Other (good gag reflex) Head Exam: Atraumatic, Normocephalic Neck: Normal Inspection, Supple, Non-Tender, Carotid Bruit Respiratory/Chest: No Respiratory Distress, Lungs Clear, Normal Breath Sounds. No: Decreased Breath Sounds, Rales, Rhonchi, Wheezing Cardiovascular: Normal Peripheral Pulses, Regular Rate, Rhythm, Systolic Murmur (systolic ejection murmur grade 3/6 best heard at the base with radiation into the carotids), Gallop/S3. No: Friction Rub GI/Abdominal: Normal Bowel Sounds, Soft, Non-Tender, No Distention, No Abnormal Bruit, No Mass (Female) Exam: Deferred Rectal (Female) Exam: Deferred Neuro Exam (Abbreviated): Unresponsive, Other (AMS) DTR: 2+: Bicep (R), Bicep (L), Patella (R), Achilles (R), Achilles (L), 3+: Patella (L) Back Exam: Normal Inspection Extremities: Normal Inspection, Normal Capillary Refill. No: Pedal Edema, Joint Swelling, Jeovanny's Sign Psychiatric: Other (AMS) Skin Exam: Warm, Dry, Other (skin tenting noted which suggest mild dehydration) . No: No Rash Course - Vital Signs Text/Narrative:: I talked with Dr. Castaneda at 10:30AM regarding this patient. I discussed all of her diagnostic and imaging studies. She will be admitted to tele/obs. Last Recorded V/S: Last Vital Signs Temp 97.1 F 09/19/19 08:40 Pulse 76 09/19/19 08:40 Resp 12 09/19/19 08:40 BP 193/124 H 09/19/19 08:40 Pulse Ox 97 09/19/19 08:40 - Orders/Labs/Meds Orders: Active Orders 24 hr Category Date Time Status EKG 12 Lead [EKG Documentation Completion] [RC] ROUTINE Care 09/19/19 09:08 Active Head wo Cont [CT] Stat Exams 09/19/19 08:52 Taken Sodium Chloride 0.9% [Normal Saline] 500 ml Med 09/19/19 09:00 Active IV .BOLUS Medication Orders Sodium Chloride (Normal Saline) 500 mls @ 500 mls/hr IV .BOLUS NAIDA Last Admin: 09/19/19 09:24 Dose: 500 mls/hr Labs: Laboratory Tests 09/19/19 09/19/19 09/19/19 Range/Units 09:06 09:06 09:06 WBC 12.39 H (4.0-11.0) K/uL RBC 4.01 L (4.30-5.90) M/uL Hgb 11.1 L (12.0-16.0) g/dL Hct 33.3 L (36.0-46.0) % MCV 83.0 (80.0-98.0) fL MCH 27.7 (27.0-32.0) pg MCHC 33.3 (31.0-37.0) g/dL RDW Std Deviation 41.6 (28.0-62.0) fl RDW Coeff of [place]ley 14 (11.0-15.0) % Plt Count 360 (150-400) K/uL MPV 10.50 (7.40-12.00) fL Neut % (Auto) 85.1 H (48.0-80.0) % Lymph % (Auto) 5.4 L (16.0-40.0) % [place] % (Auto) 8.6 (0.0-15.0) % Eos % (Auto) 0.7 (0.0-7.0) % Baso % (Auto) 0.2 (0.0-1.5) % Neut # (Auto) 10.5 H (1.4-5.7) K/uL Lymph # (Auto) 0.7 (0.6-2.4) K/uL [place] # (Auto) 1.1 H (0.0-0.8) K/uL Eos # (Auto) 0.1 (0.0-0.7) K/uL Baso # (Auto) 0.0 (0.0-0.1) K/uL Nucleated RBC % 0.0 /100WBC Nucleated RBCs # 0 K/uL INR Lactate 0.7 (0.20-2.00) mmol/L Sodium 131 L (136-145) mmol/L Potassium 4.4 (3.5-5.1) mmol/L Chloride 96 L (98-107) mmol/L Carbon Dioxide 24.6 (21.0-32.0) mmol/L BUN 18 (7.0-18.0) mg/dL Creatinine 0.8 (0.6-1.0) mg/dL Est Cr Clr Drug Dosing 43.44 mL/min Estimated GFR (MDRD) > 60.0 ml/min Glucose 102 (74-106) mg/dL Calcium 9.4 (8.5-10.1) mg/dL Magnesium 1.9 (1.8-2.4) mg/dL Total Bilirubin 0.4 (0.2-1.0) mg/dL AST 18 (15-37) IU/L ALT 21 (14-63) IU/L Alkaline Phosphatase 131 H (46-116) U/L Troponin I < 0.050 (0.000-0.056) ng/mL Total Protein 7.6 (6.4-8.2) g/dL Albumin 3.2 L (3.4-5.0) g/dL Globulin 4.4 H (2.6-4.0) g/dL Albumin/Globulin Ratio 0.7 L (0.9-1.6) Urine Color Urine Appearance Urine pH (5.0-8.0) Ur Specific [place] (1.001-1.035) Urine Protein (NEGATIVE) mg/dL Urine Glucose (UA) (NEGATIVE) mg/dL Urine Ketones (NEGATIVE) mg/dL Urine Occult Blood (NEGATIVE) Urine Nitrite (NEGATIVE) Urine Bilirubin (NEGATIVE) Urine Urobilinogen (<2.0) EU/dL Ur Leukocyte Esterase (NEGATIVE) 09/19/19 09/19/19 Range/Units 09:06 09:10 WBC (4.0-11.0) K/uL RBC (4.30-5.90) M/uL Hgb (12.0-16.0) g/dL Hct (36.0-46.0) % MCV (80.0-98.0) fL MCH (27.0-32.0) pg MCHC (31.0-37.0) g/dL RDW Std Deviation (28.0-62.0) fl RDW Coeff of [place] (11.0-15.0) % Plt Count (150-400) K/uL MPV (7.40-12.00) fL Neut % (Auto) (48.0-80.0) % Lymph % (Auto) (16.0-40.0) % [place] % (Auto) (0.0-15.0) % Eos % (Auto) (0.0-7.0) % Baso % (Auto) (0.0-1.5) % Neut # (Auto) (1.4-5.7) K/uL Lymph # (Auto) (0.6-2.4) K/uL [place] # (Auto) (0.0-0.8) K/uL Eos # (Auto) (0.0-0.7) K/uL Baso # (Auto) (0.0-0.1) K/uL Nucleated RBC % /100WBC Nucleated RBCs # K/uL INR 0.98 Lactate (0.20-2.00) mmol/L Sodium (136-145) mmol/L Potassium (3.5-5.1) mmol/L Chloride (98-107) mmol/L Carbon Dioxide (21.0-32.0) mmol/L BUN (7.0-18.0) mg/dL Creatinine (0.6-1.0) mg/dL Est Cr Clr Drug Dosing mL/min Estimated GFR (MDRD) ml/min Glucose (74-106) mg/dL Calcium (8.5-10.1) mg/dL Magnesium (1.8-2.4) mg/dL Total Bilirubin (0.2-1.0) mg/dL AST (15-37) IU/L ALT (14-63) IU/L Alkaline Phosphatase (46-116) U/L Troponin I (0.000-0.056) ng/mL Total Protein (6.4-8.2) g/dL Albumin (3.4-5.0) g/dL Globulin (2.6-4.0) g/dL Albumin/Globulin Ratio (0.9-1.6) Urine Color YELLOW Urine Appearance CLEAR Urine pH 6.0 (5.0-8.0) Ur Specific [place] 1.010 (1.001-1.035) Urine Protein NEGATIVE (NEGATIVE) mg/dL Urine Glucose (UA) NEGATIVE (NEGATIVE) mg/dL Urine Ketones NEGATIVE (NEGATIVE) mg/dL Urine Occult Blood NEGATIVE (NEGATIVE) Urine Nitrite NEGATIVE (NEGATIVE) Urine Bilirubin NEGATIVE (NEGATIVE) Urine Urobilinogen 0.2 (<2.0) EU/dL Ur Leukocyte Esterase NEGATIVE (NEGATIVE) Meds: Medications Generic Name Dose Route Start Last Admin Trade Name Keila PRN Reason Stop Dose Admin Sodium Chloride 500 mls @ 500 mls/hr 09/19/19 09:00 09/19/19 09:24 Normal Saline IV 500 mls/hr .BOLUS NAIDA Administration Discontinued Medications Generic Name Dose Route Start Last Admin Trade Name Keila PRN Reason Stop Dose Admin Naloxone HCl 1 mg 09/19/19 09:20 09/19/19 09:26 Narcan IV 09/19/19 09:21 1 mg ONETIME ONE Administration Departure - Departure Time of Disposition: 10:40 Disposition: Admitted As Inpatient 64 Condition: Poor Clinical Impression: Dehydration AMS (altered mental status) Qualifiers: Altered mental status type: unspecified Qualified Code(s): R41.82 - Altered mental status, unspecified - Discharge Information *PRESCRIPTION DRUG MONITORING PROGRAM REVIEWED*: Yes *COPY OF PRESCRIPTION DRUG MONITORING REPORT IN PATIENT TERESITA: Yes Sepsis Event Note - Focused Exam Vital Signs: Vital Signs Temp Pulse Resp BP Pulse Ox 09/19/19 08:40 97.1 F 76 12 193/124 H 97 Date Exam was Performed: 09/19/19 Time Exam was Performed: 10:38 - My Orders Last 24 Hours: My Active Orders 09/19/19 08:52 Head wo Cont [CT] Stat 09/19/19 09:00 Sodium Chloride 0.9% [Normal Saline] 500 ml IV .BOLUS - Assessment/Plan Last 24 Hours: My Active Orders 09/19/19 08:52 Head wo Cont [CT] Stat 09/19/19 09:00 Sodium Chloride 0.9% [Normal Saline] 500 ml IV .BOLUS
[2019-09-19] MEDS ORDERED: Sodium Chloride 0.9% 500 ML IV SCH (09:00)
[2019-09-19] MEDS ORDERED: Naloxone 0.4 MG/ML Syringe IV ONE (09:20)
[2019-09-19 09:55] LABS: BLOOD UREA NITROGEN,BUN 18 mg/dL (7.0-18.0); CARBON DIOXIDE,CO2 24.6 mmol/L (21.0-32.0); CHLORIDE,CL 96 mmol/L (98-107); GLUCOSE RANDOM 102 mg/dL (74-106); POTASSIUM,K 4.4 mmol/L (3.5-5.1); SODIUM,NA 131 mmol/L (136-145)
--- NOTE | 2019-09-19 10:29 | CR ---
Chest: AP view of the chest was obtained. Comparison: Prior chest CT of 05/11/19 and chest x-ray of 09/02/18. Interstitial change is noted. This finding has increased from prior chest x-ray but appears fairly stable from previous chest CT. Calcified pleural plaque is noted within the right midlung. No acute parenchymal changes otherwise seen. 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 Scoliosis is noted within the spine. Bony structures are osteopenic. Impression: 1. Interstitial change increased from prior chest x-ray but fairly stable from prior chest CT. 2. Other findings as noted above. 3. Nothing acute is definitely appreciated. Diagnostic code #3 This report was dictated in [place] Standard Time
--- NOTE | 2019-09-19 10:52 | CT ---
EXAM DATE: 09/19/19 PATIENT'S AGE: 79 Patient: BERENICE JADE Facility: [facility], [facility] Site . Site : [id number] Study: CT-Head STROKE PROTOCOL WO CONT-09/19/2019 9:09:55 AM Ordering Physician: Trevor Hobbs Final Report: INDICATION: Altered mental status. Stroke code. Unresponsive. COMPARISON: CT head 07/05/2019. TECHNIQUE: CT of the head without IV contrast. Coronal and sagittal reconstructions are provided. FINDINGS: No intracranial hemorrhage, mass effect, or evidence of acute infarct. No midline shift. No abnormal extra-axial fluid collections. Mild generalized cerebral and cerebellar volume loss with ex vacuo dilation of the lateral ventricles. Moderate to advanced chronic small vessel ischemic disease. Old lacunar infarct left basal ganglia. Intracranial vascular calcifications. Orbits and extraocular muscles are symmetric. Paranasal sinuses and mastoid air cells are clear. No acute fracture. Mild soft tissue edema or skin thickening in the left supraorbital region, unchanged since prior exam. Soft tissues are otherwise unremarkable. IMPRESSION: : No acute intracranial findings. Please note that all CT scans at this facility use dose modulation, iterative reconstruction, and/or weight-based dosing when appropriate to reduce radiation dose to as low as reasonably achievable. Dictated by Maria Yen MD @ Sep 19 2019 9:22AM Signed by: Maria Yen MD @09/19/2019 9:28:11 AM (Electronic Signature) Report Signed by Proxy. [facility]
[2019-09-19] MEDS ORDERED: Ondansetron 4 MG/2 ML SDV IVPUSH PRN (13:35)
--- NOTE | 2019-09-19 14:07 | PCM.HP.2 ---
H&P History of Present Illness - General Date of Service: 09/19/19 Admit Problem/Dx: Admission Diagnosis/Problem Admission Diagnosis/Problem Altered mental status Source of Information: Patient History Limitations: Reports: No Limitations - History of Present Illness Initial Comments - Free Text/Narative: This 79 year old female with pmh of hypertension and glaucoma presented to the ED unresponsive. detention staff reports she ambulated to the dining room for breakfast and then a little while after being in her chair, she was noted to be slumped over. She was unresponsive and noted to have elevated BP. So seizure like activity noted. Reports she has been otherwise healthy at [place]. I spoke with Alem, Mimi sister, who reports she has done this in the past and wakes up shortly after reports of seizures in the past, but no definite history of seizures or definite diagnoses of. In the ED mild Leukocytosis noted at 12,000. Na 131, Cl 96. No PITO noted. Lactic acid normal. CXR negative. Head CT negative as well. Glascow coma scale 3. 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 I did speak with Clarice, daughter, regarding admission and confirmed DNR status. She was updated on state currently as well as pending imaging studies. - Related Data Allergies/Adverse Reactions: Allergies Allergy/AdvReac Type Severity Reaction Status Date / Time avocado Allergy Other Verified 09/19/19 09:51 codeine Allergy Change Verified 06/14/19 08:46 Mental Status kiwi Allergy Other Verified 09/19/19 09:51 Latex, Natural Rubber Allergy Other Verified 06/14/19 08:46 lisinopril Allergy Other Verified 09/19/19 09:51 phenazopyridine Allergy Rash Verified 06/14/19 08:46 [From Pyridium] strawberry Allergy Other Verified 09/19/19 09:51 avocado Allergy Unknown Airway Uncoded 06/14/19 08:46 Tightness strawberry Allergy Unknown Hives Uncoded 06/14/19 08:46 kiwi Allergy Other Uncoded 06/14/19 08:46 Home Medications: Home Meds Pilocarpine HCl 1 drop EYEBOTH QID 03/01/15 [History] Brimonidine/Timolol [Combigan 0.2%/0.5% Ophth Soln] 1 drop EYEBOTH Q12H [History] Latanoprost [Xalatan] 1 drop EYEBOTH BEDTIME 04/03/19 [History] traMADol [Ultram] 25 mg PO Q8H PRN 04/03/19 [History] Acetaminophen [Tylenol] 650 mg PO Q4H PRN 09/19/19 [History] Bisacodyl [Dulcolax] 10 mg RC Q24H PRN 09/19/19 [History] Carbamide Peroxide [Debrox] 3 drop EARBOTH BID PRN 09/19/19 [History] Sodium Chloride 1 gm PO TID 09/19/19 [History] Past Medical History HEENT History: Reports: Glaucoma Cardiovascular History: Reports: Hypertension [employer] History: Reports: Musculoskeletal History: Reports: Osteoporosis Neurological History: Reports: Alzheimers Disease - Infectious Disease History Infectious Disease History: Reports: Chicken Pox, Measles, Mumps - Past Surgical History HEENT Surgical History: Reports: None Musculoskeletal Surgical History: Reports: Other (See Below) Other Musculoskeletal Surgeries/Procedures:: L. Artificial knee Social & Family History - Family History Family Medical History: Noncontributory HEENT: Reports: None - Tobacco Use Smoking Status *Q: Unknown Ever Smoked Second Hand Smoke Exposure: No - Caffeine Use Caffeine Use: Reports: None - Recreational Drug Use Recreational Drug Use: No H&P Review of Systems - Review of Systems: Review Of Systems: Unable To Obtain Reason Not Obtained: patient unresponsive. Exam - Exam Exam: See Below - Vital Signs Vital Signs: Last Vital Signs Temp 97.1 F 09/19/19 12:28 Pulse 68 09/19/19 12:28 Resp 20 09/19/19 12:28 BP 176/82 H 09/19/19 12:28 Pulse Ox 98 09/19/19 12:28 Weight: 47.5 kg - Exam General: Obtunded HEENT: Pupils Equal (pinpoint, but does have eye medication which makes pupils pinpoint) Lungs: Clear to Auscultation, Normal Respiratory Effort Cardiovascular: Regular Rate, Regular Rhythm GI/Abdominal Exam: Normal Bowel Sounds, Soft, Non-Tender Back Exam: Normal Inspection Extremities: Normal Inspection, Normal Range of Motion, Non-Tender Neurological: No: Babinski Neuro Extensive - Mental Status: Withdraws to Pain - Patient Data Lab Results Last 24 hrs: Laboratory Results - last 24 hr 09/19/19 09/19/19 09/19/19 Range/Units 09:06 09:06 09:06 WBC 12.39 H (4.0-11.0) K/uL RBC 4.01 L (4.30-5.90) M/uL Hgb 11.1 L (12.0-16.0) g/dL Hct 33.3 L (36.0-46.0) % MCV 83.0 (80.0-98.0) fL MCH 27.7 (27.0-32.0) pg MCHC 33.3 (31.0-37.0) g/dL RDW Std Deviation 41.6 (28.0-62.0) fl RDW Coeff of Alley 14 (11.0-15.0) % Plt Count 360 (150-400) K/uL MPV 10.50 (7.40-12.00) fL Neut % (Auto) 85.1 H (48.0-80.0) % Lymph % (Auto) 5.4 L (16.0-40.0) % Gilmer % (Auto) 8.6 (0.0-15.0) % Eos % (Auto) 0.7 (0.0-7.0) % Baso % (Auto) 0.2 (0.0-1.5) % Neut # (Auto) 10.5 H (1.4-5.7) K/uL Lymph # (Auto) 0.7 (0.6-2.4) K/uL Gilmer # (Auto) 1.1 H (0.0-0.8) K/uL Eos # (Auto) 0.1 (0.0-0.7) K/uL Baso # (Auto) 0.0 (0.0-0.1) K/uL Nucleated RBC % 0.0 /100WBC Nucleated RBCs # 0 K/uL INR Lactate 0.7 (0.20-2.00) mmol/L Sodium 131 L (136-145) mmol/L Potassium 4.4 (3.5-5.1) mmol/L Chloride 96 L (98-107) mmol/L Carbon Dioxide 24.6 (21.0-32.0) mmol/L BUN 18 (7.0-18.0) mg/dL Creatinine 0.8 (0.6-1.0) mg/dL Est Cr Clr Drug Dosing 43.44 mL/min Estimated GFR (MDRD) > 60.0 ml/min Glucose 102 (74-106) mg/dL Calcium 9.4 (8.5-10.1) mg/dL Magnesium 1.9 (1.8-2.4) mg/dL Total Bilirubin 0.4 (0.2-1.0) mg/dL AST 18 (15-37) IU/L ALT 21 (14-63) IU/L Alkaline Phosphatase 131 H (46-116) U/L Troponin I < 0.050 (0.000-0.056) ng/mL Total Protein 7.6 (6.4-8.2) g/dL Albumin 3.2 L (3.4-5.0) g/dL Globulin 4.4 H (2.6-4.0) g/dL Albumin/Globulin Ratio 0.7 L (0.9-1.6) Urine Color Urine Appearance Urine pH (5.0-8.0) Ur Specific [place] (1.001-1.035) Urine Protein (NEGATIVE) mg/dL Urine Glucose (UA) (NEGATIVE) mg/dL Urine Ketones (NEGATIVE) mg/dL Urine Occult Blood (NEGATIVE) Urine Nitrite (NEGATIVE) Urine Bilirubin (NEGATIVE) Urine Urobilinogen (<2.0) EU/dL Ur Leukocyte Esterase (NEGATIVE) 09/19/19 09/19/19 Range/Units 09:06 09:10 WBC (4.0-11.0) K/uL RBC (4.30-5.90) M/uL Hgb (12.0-16.0) g/dL Hct (36.0-46.0) % MCV (80.0-98.0) fL MCH (27.0-32.0) pg MCHC (31.0-37.0) g/dL RDW Std Deviation (28.0-62.0) fl RDW Coeff of Alley (11.0-15.0) % Plt Count (150-400) K/uL MPV (7.40-12.00) fL Neut % (Auto) (48.0-80.0) % Lymph % (Auto) (16.0-40.0) % Gilmer % (Auto) (0.0-15.0) % Eos % (Auto) (0.0-7.0) % Baso % (Auto) (0.0-1.5) % Neut # (Auto) (1.4-5.7) K/uL Lymph # (Auto) (0.6-2.4) K/uL Gilmer # (Auto) (0.0-0.8) K/uL Eos # (Auto) (0.0-0.7) K/uL Baso # (Auto) (0.0-0.1) K/uL Nucleated RBC % /100WBC Nucleated RBCs # K/uL INR 0.98 Lactate (0.20-2.00) mmol/L Sodium (136-145) mmol/L Potassium (3.5-5.1) mmol/L Chloride (98-107) mmol/L Carbon Dioxide (21.0-32.0) mmol/L BUN (7.0-18.0) mg/dL Creatinine (0.6-1.0) mg/dL Est Cr Clr Drug Dosing mL/min Estimated GFR (MDRD) ml/min Glucose (74-106) mg/dL Calcium (8.5-10.1) mg/dL Magnesium (1.8-2.4) mg/dL Total Bilirubin (0.2-1.0) mg/dL AST (15-37) IU/L ALT (14-63) IU/L Alkaline Phosphatase (46-116) U/L Troponin I (0.000-0.056) ng/mL Total Protein (6.4-8.2) g/dL Albumin (3.4-5.0) g/dL Globulin (2.6-4.0) g/dL Albumin/Globulin Ratio (0.9-1.6) Urine Color YELLOW Urine Appearance CLEAR Urine pH 6.0 (5.0-8.0) Ur Specific [place] 1.010 (1.001-1.035) Urine Protein NEGATIVE (NEGATIVE) mg/dL Urine Glucose (UA) NEGATIVE (NEGATIVE) mg/dL Urine Ketones NEGATIVE (NEGATIVE) mg/dL Urine Occult Blood NEGATIVE (NEGATIVE) Urine Nitrite NEGATIVE (NEGATIVE) Urine Bilirubin NEGATIVE (NEGATIVE) Urine Urobilinogen 0.2 (<2.0) EU/dL Ur Leukocyte Esterase NEGATIVE (NEGATIVE) Result Diagrams: 09/19/19 09:06 09/19/19 09:06 EKG INTERPRETATION EKG Date: 09/19/19 Rhythm: NSR P-Wave: Present QRS: Normal ST-T: Normal QT: Normal Sepsis Event Note - Evaluation Sepsis Screening Result: No Definite Risk - Focused Exam Vital Signs: Vital Signs Temp Pulse Resp BP Pulse Ox 09/19/19 12:28 97.1 F 68 20 176/82 H 98 09/19/19 11:55 70 12 183/83 H 98 09/19/19 11:40 67 13 178/79 H 98 09/19/19 11:10 72 11 L 173/77 H 97 09/19/19 10:40 65 12 162/76 H 97 09/19/19 10:25 72 12 174/85 H 98 09/19/19 10:10 67 13 161/83 H 98 09/19/19 09:55 69 13 179/79 H 97 09/19/19 09:40 72 13 188/85 H 99 09/19/19 09:25 73 12 190/95 H 98 09/19/19 09:10 73 11 L 203/101 H 98 09/19/19 08:55 79 12 200/100 H 98 09/19/19 08:40 97.1 F 76 12 193/124 H 97 Date Exam was Performed: 09/19/19 Time Exam was Performed: 14:11 - Problem List (1) AMS (altered mental status) SNOMED Code(s): 086402782 ICD Code: R41.82 - ALTERED MENTAL STATUS, UNSPECIFIED Status: Acute Current Visit: Yes Qualifiers: Altered mental status type: unspecified Qualified Code(s): R41.82 - Altered mental status, unspecified (2) Dehydration SNOMED Code(s): 40325748 ICD Code: E86.0 - DEHYDRATION Status: Acute Current Visit: Yes (3) Dementia SNOMED Code(s): 17494392 ICD Code: F03.90 - UNSPECIFIED DEMENTIA WITHOUT BEHAVIORAL DISTURBANCE Status: Acute Current Visit: No Qualifiers: Dementia type: Alzheimer's disease Alzheimer's disease onset: other onset Dementia behavioral disturbance: without behavioral disturbance Qualified Code(s): G30.8 - Other Alzheimer's disease; F02.80 - Dementia in other diseases classified elsewhere without behavioral disturbance (4) Anemia SNOMED Code(s): 331086365 ICD Code: D64.9 - ANEMIA, UNSPECIFIED Status: Chronic Priority: Medium Current Visit: No Qualifiers: Anemia type: other cause Other causes of anemia: nutritional, other Qualified Code(s): D53.8 - Other specified nutritional anemias (5) Glaucoma SNOMED Code(s): 25859220 ICD Code: H40.9 - UNSPECIFIED GLAUCOMA Status: Chronic Current Visit: No (6) HTN (hypertension) SNOMED Code(s): 77102121 ICD Code: I10 - ESSENTIAL (PRIMARY) HYPERTENSION Status: Chronic Priority : Medium Current Visit: No Qualifiers: Hypertension type: essential hypertension Qualified Code(s): I10 - Essential (primary) hypertension Problem List Initiated/Reviewed/Updated: Yes Orders Last 24hrs: Active Orders 24 hr Category Date Time Status Admission Status [Patient Status] [ADT] Stat ADT 09/19/19 10:42 Active EEG Awake Drowsy [RC] ROUTINE Care 09/19/19 13:33 Ordered EKG 12 Lead [EKG Documentation Completion] [RC] ROUTINE Care 09/19/19 09:08 Active Oxygen Therapy [RC] PRN Care 09/19/19 13:35 Ordered Telemetry Monitoring [Cardiac Monitoring] [RC] . Care 09/19/19 13:30 Ordered DIRECTED Up ad Yris [RC] ASDIRECTED Care 09/19/19 13:35 Ordered VTE/DVT Education [RC] PER UNIT ROUTINE Care 09/19/19 13:35 Ordered Vital Signs [RC] Q4H Care 09/19/19 13:35 Ordered Nothing per Oral Now Diet [DIET] Diet 09/19/19 Dinner Ordered Brain w wo Cont [MR] Urgent Exams 09/19/19 13:33 Ordered BASIC METABOLIC PANEL,BMP [CHEM] AM Lab 09/20/19 05:11 Ordered CBC WITH AUTO DIFF [HEME] AM Lab 09/20/19 05:11 Ordered Brimonidine/Timolol Med 09/19/19 14:00 Ordered 1 drop EYEBOTH Q12H Latanoprost [Xalatan 0.005% Ophth Soln] Med 09/19/19 21:00 Ordered 1 drop EYEBOTH BEDTIME Ondansetron [Zofran] Med 09/19/19 13:35 Ordered 4 mg IVPUSH Q4H PRN Pilocarpine [Pilocar 4% Ophth Soln] Med 09/19/19 18:00 Ordered 1 drop EYEBOTH QID Sodium Chloride 0.9% [Normal Saline] 1,000 ml Med 09/19/19 14:00 Ordered IV Q20H Sodium Chloride 0.9% [Normal Saline] 500 ml Med 09/19/19 09:00 Active IV .BOLUS Resuscitation Status Routine Resus Stat 09/19/19 13:35 Ordered Medication Orders Sodium Chloride (Normal Saline) 500 mls @ 500 mls/hr IV .BOLUS NAIDA Last Admin: 09/19/19 09:24 Dose: 500 mls/hr Sodium Chloride (Normal Saline) 1,000 mls @ 50 mls/hr IV Q20H NAIDA Non-Formulary Medication (Brimonidine/Timolol) 1 drop EYEBOTH Q12H NAIDA Ondansetron HCl (Zofran) 4 mg IVPUSH Q4H PRN PRN Reason: Nausea Assessment/Plan Comment:: This 79 year old female admitted with AMS, unresponsive 1. AMS: Currently unresponsive with Glascow coma of 3. Spoke with Dr. Little regarding further evaluation with regards to some history of this in the past and seizures. Will obtain MRI of brain as well as EEG. Obtain Tox screen. Monitor on telemetry for any arrhythmia. Allow for permissive HTN for possible stroke. NPO. Will add gentle IVF 50 ml/hr. Update daughter when further results available. 2. HTN: Stable. Allow for permissive HTN. 3. Glaucome: Continue eye drops VTE prophylaxis: Heparin Dispo: 2-3 days pending - Mortality Measure Prognosis:: Good
[2019-09-19] MEDS ORDERED: Gadobenate Dimeglumine 529 MG/ML 20 ML SDV IVPUSH STA (15:46)
[2019-09-19] MEDS: TIMOLOL EYEBOTH SCH (16:32)
[2019-09-19] MEDS: BRIMONIDINE EYEBOTH SCH (16:32)
--- NOTE | 2019-09-19 16:54 | MR ---
MRI brain (without and with intravenous contrast) Technique: T1 sagittal and coronal; T2, FLAIR, T1 and diffusion axial; T1 fat suppressed postcontrast sagittal, coronal and axial images were obtained. Findings: Motion artifact is noted throughout the exam. Comparison: Prior head CT exam of 07/05/19. Findings: Ventricles along with basal cisterns and sulci over the convexities are mildly prominent. Increased signal is seen within the periventricular and subcortical white matter on both sides. These findings are most likely due to small vessel ischemic demyelination change. Increased signal also seen within the posterior left temporal region involving the cortex which likely represents previous infarct. Symmetric areas of abnormal diffusion are noted within both thalami. No other acute diffusion abnormalities are seen. No abnormal enhancement is seen. Impression: 1. Generalized atrophy and diffuse senescent change. 2. Increased signal within posterior left temporal region extending to the cortex presumably due to previous infarct. 3. Symmetric areas of abnormal diffusion within both sides of the thalamus. Differential of this finding is fairly extensive which includes deep cerebral vein thrombosis which is not definitely appreciated on this exam. Infectious disease is such as viral encephalitis can cause this finding. Autoimmune encephalomyelitis is also within the differential. Electrolyte imbalances causing osmotic demyelination also are included within the differential. Congenital findings are unlikely in a patient of this age. 4. No abnormal enhancement is seen. Diagnostic code #3 This report was dictated in [place] Standard Time
--- NOTE | 2019-09-19 17:17 | PCM.CONS ---
H&P History of Present Illness - General Date of Service: 09/19/19 Admit Problem/Dx: Admission Diagnosis/Problem Admission Diagnosis/Problem Altered mental status This morning, she slumped and became unresponsive. She had GCS 3 in the ED. Unable to obtain history from patient as she is unresponsive. She was admitted 09/02/2018 with altered mental status. She was found to have Na 121 at that time that was attributed to poor oral intake. Due to concern for poor self care, she was discharged from hospital to [facility]. On a note dated 06/14/2019 from [facility], resident started convulsiing dining room foaming at mouth lasted about a minute. She has a history of dementia Results EEG showed diffuse slowing MRI brain restricted diffusion in the bilateral thalami and midbrain, extensive white matter T2 flair hyperintense foci, likely old ischemia. diffuse atrophy noted - Related Data Allergies/Adverse Reactions: Allergies Allergy/AdvReac Type Severity Reaction Status Date / Time avocado Allergy Other Verified 09/19/19 09:51 codeine Allergy Change Verified 06/14/19 08:46 Mental Status kiwi Allergy Other Verified 09/19/19 09:51 Latex, Natural Rubber Allergy Other Verified 06/14/19 08:46 lisinopril Allergy Other Verified 09/19/19 09:51 phenazopyridine Allergy Rash Verified 06/14/19 08:46 [From Pyridium] strawberry Allergy Other Verified 09/19/19 09:51 avocado Allergy Unknown Airway Uncoded 06/14/19 08:46 Tightness strawberry Allergy Unknown Hives Uncoded 06/14/19 08:46 kiwi Allergy Other Uncoded 06/14/19 08:46 Home Medications: Home Meds Pilocarpine HCl 1 drop EYEBOTH QID 03/01/15 [History] Brimonidine/Timolol [Combigan 0.2%/0.5% Ophth Soln] 1 drop EYEBOTH Q12H [History] Latanoprost [Xalatan] 1 drop EYEBOTH BEDTIME 04/03/19 [History] traMADol [Ultram] 25 mg PO Q8H PRN 04/03/19 [History] Acetaminophen [Tylenol] 650 mg PO Q4H PRN 09/19/19 [History] Bisacodyl [Dulcolax] 10 mg RC Q24H PRN 09/19/19 [History] Carbamide Peroxide [Debrox] 3 drop EARBOTH BID PRN 09/19/19 [History] Sodium Chloride 1 gm PO TID 09/19/19 [History] Past Medical History HEENT History: Reports: Glaucoma Cardiovascular History: Reports: Hypertension 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 Artificial knee Social & Family History - Family History Family Medical History: Noncontributory HEENT: Reports: None - Tobacco Use Smoking Status *Q: Unknown Ever Smoked Second Hand Smoke Exposure: No - Caffeine Use Caffeine Use: Reports: None - Recreational Drug Use Recreational Drug Use: No H&P Review of Systems - Review of Systems: Review Of Systems: Unable To Obtain Reason Not Obtained: altered mental status Exam - Exam Exam: See Below - Vital Signs Vital Signs: Last Vital Signs Temp 36.2 C 09/19/19 16:33 Pulse 68 09/19/19 16:33 Resp 16 09/19/19 16:33 BP 185/84 H 09/19/19 16:33 Pulse Ox 93 L 09/19/19 16:33 Weight: 47.5 kg - Exam Physical Exam Comments:: Mental status - snoring, moans to noxious stimuli CN - pupil pinpoint, Doll's - no movement Motor/sensory - withdraws to noxious stimuli in all 4 limbs Reflexes 2+ throughout - Patient Data Lab Results Last 24 hrs: Laboratory Results - last 24 hr 09/19/19 09/19/19 09/19/19 Range/Units 09:06 09:06 09:06 WBC 12.39 H (4.0-11.0) K/uL RBC 4.01 L (4.30-5.90) M/uL Hgb 11.1 L (12.0-16.0) g/dL Hct 33.3 L (36.0-46.0) % MCV 83.0 (80.0-98.0) fL MCH 27.7 (27.0-32.0) pg MCHC 33.3 (31.0-37.0) g/dL RDW Std Deviation 41.6 (28.0-62.0) fl RDW Coeff of Alley 14 (11.0-15.0) % Plt Count 360 (150-400) K/uL MPV 10.50 (7.40-12.00) fL Neut % (Auto) 85.1 H (48.0-80.0) % Lymph % (Auto) 5.4 L (16.0-40.0) % [place]idan % (Auto) 8.6 (0.0-15.0) % Eos % (Auto) 0.7 (0.0-7.0) % Baso % (Auto) 0.2 (0.0-1.5) % Neut # (Auto) 10.5 H (1.4-5.7) K/uL Lymph # (Auto) 0.7 (0.6-2.4) K/uL [place]idan # (Auto) 1.1 H (0.0-0.8) K/uL Eos # (Auto) 0.1 (0.0-0.7) K/uL Baso # (Auto) 0.0 (0.0-0.1) K/uL Nucleated RBC % 0.0 /100WBC Nucleated RBCs # 0 K/uL INR Lactate 0.7 (0.20-2.00) mmol/L Sodium 131 L (136-145) mmol/L Potassium 4.4 (3.5-5.1) mmol/L Chloride 96 L (98-107) mmol/L Carbon Dioxide 24.6 (21.0-32.0) mmol/L BUN 18 (7.0-18.0) mg/dL Creatinine 0.8 (0.6-1.0) mg/dL Est Cr Clr Drug Dosing 43.44 mL/min Estimated GFR (MDRD) > 60.0 ml/min Glucose 102 (74-106) mg/dL Calcium 9.4 (8.5-10.1) mg/dL Magnesium 1.9 (1.8-2.4) mg/dL Total Bilirubin 0.4 (0.2-1.0) mg/dL AST 18 (15-37) IU/L ALT 21 (14-63) IU/L Alkaline Phosphatase 131 H (46-116) U/L Troponin I < 0.050 (0.000-0.056) ng/mL Total Protein 7.6 (6.4-8.2) g/dL Albumin 3.2 L (3.4-5.0) g/dL Globulin 4.4 H (2.6-4.0) g/dL Albumin/Globulin Ratio 0.7 L (0.9-1.6) Urine Color Urine Appearance Urine pH (5.0-8.0) Ur Specific Dearing (1.001-1.035) Urine Protein (NEGATIVE) mg/dL Urine Glucose (UA) (NEGATIVE) mg/dL Urine Ketones (NEGATIVE) mg/dL Urine Occult Blood (NEGATIVE) Urine Nitrite (NEGATIVE) Urine Bilirubin (NEGATIVE) Urine Urobilinogen (<2.0) EU/dL Ur Leukocyte Esterase (NEGATIVE) Urine Opiates Screen (NEGATIVE) Ur Oxycodone Screen (NEGATIVE) Urine Methadone Screen (NEGATIVE) Ur Barbiturates Screen (NEGATIVE) Ur Phencyclidine Scrn (NEGATIVE) Ur Amphetamine Screen (NEGATIVE) U Methamphetamines Scrn (NEGATIVE) U Benzodiazepines Scrn (NEGATIVE) U Cocaine Metab Screen (NEGATIVE) U Marijuana (THC) Screen (NEGATIVE) 09/19/19 09/19/19 09/19/19 Range/Units 09:06 09:10 09:10 WBC (4.0-11.0) K/uL RBC (4.30-5.90) M/uL Hgb (12.0-16.0) g/dL Hct (36.0-46.0) % MCV (80.0-98.0) fL MCH (27.0-32.0) pg MCHC (31.0-37.0) g/dL RDW Std Deviation (28.0-62.0) fl RDW Coeff of Alley (11.0-15.0) % Plt Count (150-400) K/uL MPV (7.40-12.00) fL Neut % (Auto) (48.0-80.0) % Lymph % (Auto) (16.0-40.0) % [place] % (Auto) (0.0-15.0) % Eos % (Auto) (0.0-7.0) % Baso % (Auto) (0.0-1.5) % Neut # (Auto) (1.4-5.7) K/uL Lymph # (Auto) (0.6-2.4) K/uL [place]idan # (Auto) (0.0-0.8) K/uL Eos # (Auto) (0.0-0.7) K/uL Baso # (Auto) (0.0-0.1) K/uL Nucleated RBC % /100WBC Nucleated RBCs # K/uL INR 0.98 Lactate (0.20-2.00) mmol/L Sodium (136-145) mmol/L Potassium (3.5-5.1) mmol/L Chloride (98-107) mmol/L Carbon Dioxide (21.0-32.0) mmol/L BUN (7.0-18.0) mg/dL Creatinine (0.6-1.0) mg/dL Est Cr Clr Drug Dosing mL/min Estimated GFR (MDRD) ml/min Glucose (74-106) mg/dL Calcium (8.5-10.1) mg/dL Magnesium (1.8-2.4) mg/dL Total Bilirubin (0.2-1.0) mg/dL AST (15-37) IU/L ALT (14-63) IU/L Alkaline Phosphatase (46-116) U/L Troponin I (0.000-0.056) ng/mL Total Protein (6.4-8.2) g/dL Albumin (3.4-5.0) g/dL Globulin (2.6-4.0) g/dL Albumin/Globulin Ratio (0.9-1.6) Urine Color YELLOW Urine Appearance CLEAR Urine pH 6.0 (5.0-8.0) Ur Specific Dearing 1.010 (1.001-1.035) Urine Protein NEGATIVE (NEGATIVE) mg/dL Urine Glucose (UA) NEGATIVE (NEGATIVE) mg/dL Urine Ketones NEGATIVE (NEGATIVE) mg/dL Urine Occult Blood NEGATIVE (NEGATIVE) Urine Nitrite NEGATIVE (NEGATIVE) Urine Bilirubin NEGATIVE (NEGATIVE) Urine Urobilinogen 0.2 (<2.0) EU/dL Ur Leukocyte Esterase NEGATIVE (NEGATIVE) Urine Opiates Screen NEGATIVE (NEGATIVE) Ur Oxycodone Screen NEGATIVE (NEGATIVE) Urine Methadone Screen NEGATIVE (NEGATIVE) Ur Barbiturates Screen NEGATIVE (NEGATIVE) Ur Phencyclidine Scrn NEGATIVE (NEGATIVE) Ur Amphetamine Screen NEGATIVE (NEGATIVE) U Methamphetamines Scrn NEGATIVE (NEGATIVE) U Benzodiazepines Scrn NEGATIVE (NEGATIVE) U Cocaine Metab Screen NEGATIVE (NEGATIVE) U Marijuana (THC) Screen NEGATIVE (NEGATIVE) Result Diagrams: 09/19/19 09:06 09/19/19 09:06 Sepsis Event Note - Evaluation Sepsis Screening Result: No Definite Risk - Focused Exam Vital Signs: Vital Signs Temp Pulse Resp BP BP Pulse Ox 09/19/19 16:33 36.2 C 68 16 223/96 H 185/84 H 93 L 09/19/19 12:28 36.2 C 68 20 176/82 H 98 09/19/19 11:55 70 12 183/83 H 98 09/19/19 11:40 67 13 178/79 H 98 09/19/19 11:10 72 11 L 173/77 H 97 09/19/19 10:40 65 12 162/76 H 97 09/19/19 10:25 72 12 174/85 H 98 09/19/19 10:10 67 13 161/83 H 98 09/19/19 09:55 69 13 179/79 H 97 09/19/19 09:40 72 13 188/85 H 99 09/19/19 09:25 73 12 190/95 H 98 09/19/19 09:10 73 11 L 203/101 H 98 09/19/19 08:55 79 12 200/100 H 98 09/19/19 08:40 36.2 C 76 12 193/124 H 97 Date Exam was Performed: 09/19/19 Time Exam was Performed: 17:09 Consult PN Assessment/Plan Procedures: Procedures ASSAY OF BLOOD OSMOLALITY (09/02/18) ASSAY OF CK (CPK) (03/01/15) ASSAY OF FERRITIN (09/02/18) ASSAY OF LIPASE (09/02/18) ASSAY OF MAGNESIUM (09/02/18) ASSAY OF TROPONIN QUANT (04/03/19) ASSAY OF URINE CREATININE (09/02/18) ASSAY OF URINE OSMOLALITY (09/02/18) ASSAY OF URINE POTASSIUM (09/02/18) ASSAY OF URINE SODIUM (09/02/18) ASSAY OF URINE/UREA-N (09/02/18) ASSAY THYROID STIM HORMONE (09/02/18) AUTOMATED RETICULOCYTE COUNT (09/02/18) BLOOD TRANSFUSION SERVICE (03/01/15) BLOOD TYPING SEROLOGIC ABO (03/01/15) BLOOD TYPING SEROLOGIC RH(D) (03/01/15) C-REACTIVE PROTEIN (03/01/15) CHEST X-RAY 1 VIEW FRONTAL (03/01/15) COMPATIBILITY TEST ANTIGLOB (03/01/15) COMPATIBILITY TEST INCUBATE (03/01/15) COMPATIBILITY TEST SPIN (03/01/15) COMPLETE CBC AUTOMATED (03/01/15) COMPLETE CBC W/AUTO DIFF WBC (06/14/19) COMPREHEN METABOLIC PANEL (06/14/19) CT HEAD/BRAIN W/DYE (07/05/19) CT HEAD/BRAIN W/O DYE (04/03/19) CT LUMBAR SPINE W/O DYE (10/27/17) CT NECK SPINE W/O DYE (04/03/19) CT THORAX W/O & W/DYE (05/11/19) DECALCIFY TISSUE (03/01/15) DRUG TEST PRSMV DIR OPT OBS (09/02/18) ELECTROCARDIOGRAM TRACING (06/14/19) EMERGENCY DEPT VISIT (06/14/19) GAIT TRAINING THERAPY (03/01/15) GLUCOSE BLOOD TEST (03/01/15) HEMATOCRIT (03/01/15) HEMOGLOBIN (03/01/15) HYDRATE IV INFUSION ADD-ON (09/02/18) HYDRATION IV INFUSION INIT (06/14/19) IRON BINDING TEST (09/02/18) METABOLIC PANEL TOTAL CA (09/02/18) OCCULT BLD FECES 1-3 TESTS (09/02/18) OT EVAL LOW COMPLEX 30 MIN (09/02/18) PROTHROMBIN TIME (04/03/19) PT EVAL LOW COMPLEX 20 MIN (09/02/18) PT EVALUATION (03/01/15) RBC ANTIBODY SCREEN (03/01/15) ROUTINE VENIPUNCTURE (04/03/19) THER/DIAG CONCURRENT INF (09/04/18) THER/PROPH/DIAG INJ IV PUSH (10/27/17) THER/PROPH/DIAG INJ SC/IM (10/27/17) THER/PROPH/DIAG IV INF ADDON (09/04/18) THER/PROPH/DIAG IV INF INIT (09/02/18) THERAPEUTIC ACTIVITIES (09/02/18) THERAPEUTIC EXERCISES (10/27/17) TISSUE EXAM BY PATHOLOGIST (03/01/15) TX/PRO/DX INJ NEW DRUG ADDON (09/04/18) TX/PROPH/DG ADDL SEQ IV INF (09/04/18) URINALYSIS AUTO W/SCOPE (06/14/19) URINE CULTURE/COLONY COUNT (06/14/19) X-RAY EXAM CHEST 1 VIEW (09/02/18) X-RAY EXAM L-S SPINE 2/3 VWS (10/27/17) X-RAY EXAM OF ELBOW (04/03/19) X-RAY EXAM OF HIP (03/01/15) X-RAY EXAM OF HIP (03/01/15) X-RAY EXAM OF HIP (03/01/15) X-RAY EXAM OF HUMERUS (03/01/15) X-RAY EXAM OF PELVIS (10/27/17) X-RAY EXAM OF PELVIS (04/19/15) X-RAY EXAM OF PELVIS (03/01/15) X-RAY EXAM OF SHOULDER (04/03/19) X-RAY EXAM OF WRIST (03/01/15) X-RAY EXAM UNILAT RIBS/CHEST (10/27/17) (1) AMS (altered mental status) SNOMED Code(s): 338273279 Code(s): R41.82 - ALTERED MENTAL STATUS, UNSPECIFIED Current Visit: Yes Qualifiers: Altered mental status type: unspecified Qualified Code(s): R41.82 - Altered mental status, unspecified Assessment:: AMS a/w MRI findings of restricted diffusion in the thalami, midbrain, likely stroke. Diff dx including hypoxia/anoxia, focal ischemia. This pattern can be associated with occlusion of variant artery of [place] Rec -f/u rad read of MRI -TTE, telemetry, CTA head and neck Problem List Initiated/Reviewed/Updated: Yes
[2019-09-19] MEDS: Sodium Chloride 0.9% 1,000 ML IV SCH (17:24)
[2019-09-19] MEDS ORDERED: Iopamidol 755 MG/ML 200 ML Multipack Bottle IVPUSH ONE (18:34)
--- NOTE | 2019-09-19 18:57 | CT ---
CT angiogram of brain Technique: Multiple axial sections through the brain were obtained. Intravenous contrast was utilized. Multiple MIP images were obtained. Findings: Left vertebral artery is dominant. Basilar artery is patent. Distal internal carotid arteries are patent. Middle cerebral arteries and anterior cerebral arteries show contrast flow. There appears to be approximately 50% stenosis within the proximal left posterior cerebral artery. Posterior cerebral arteries are otherwise patent. No other areas of stenosis are seen. No occlusion is seen. No aneurysm is appreciated. Impression: 1. Approximate 50% stenosis within the proximal left posterior cerebral artery. 2. No other areas of stenosis are seen. No occlusion is seen. Diagnostic code #3 This report was dictated in [place] Standard Time
--- NOTE | 2019-09-19 18:57 | CT ---
CT angiogram of neck Technique: Multiple axial sections through the neck were obtained without and with intravenous contrast. Findings: Common carotid arteries appear patent. Right vertebral arteries shows poor flow within the mid and proximal portions. Findings suggest multilevel stenosis causing slow flow. Left vertebral artery appears patent into the basilar artery and is dominant. Both common carotid arteries are patent. Internal carotid arteries are patent. Impression: 1. Poor flow within the proximal and mid right vertebral artery compatible with multilevel stenosis with slow flow. 2. Left vertebral artery is patent and is the dominant artery. 3. Both common carotid arteries and internal carotid arteries appear patent. Note: No dissection or other stenosis is seen. Diagnostic code #3 This report was dictated in [place] Standard Time
[2019-09-19] MEDS: Pilocarpine 4% Ophth Soln 15 ML Bot EYEBOTH SCH (20:17)
[2019-09-19] MEDS ORDERED: Latanoprost 0.005% Ophth Soln 2.5 ML Bottle EYEBOTH SCH (21:00)
[2019-09-20] MEDS: Pilocarpine 4% Ophth Soln 15 ML Bot EYEBOTH SCH ×4 (00:01→18:06)
[2019-09-20] MEDS: BRIMONIDINE EYEBOTH SCH ×2 (02:04→13:17)
[2019-09-20] MEDS: TIMOLOL EYEBOTH SCH ×2 (02:04→13:17)
[2019-09-20 05:57] LABS: BLOOD UREA NITROGEN,BUN 16 mg/dL (7.0-18.0); CHLORIDE,CL 102 mmol/L (98-107); GLUCOSE RANDOM 94 mg/dL (74-106); SODIUM,NA 137 mmol/L (136-145)
--- NOTE | 2019-09-20 08:57 | PCM.PN ---
- General Info Date of Service: 09/20/19 Admission Dx/Problem (Free Text): Admission Diagnosis/Problem Admission Diagnosis/Problem Altered mental status Subjective Update: Patient mumbling. Reports pain to L wrist when touched. Noted to be red today and swollen. Does not open her eyes for me. Moving all limbs. - Patient Data Vitals - Most Recent: Last Vital Signs Temp 98.7 F 09/20/19 08:00 Pulse 93 09/20/19 08:00 Resp 19 09/20/19 08:00 BP 183/95 H 09/20/19 08:00 Pulse Ox 96 09/20/19 08:00 Weight - Most Recent: 47.5 kg I&O - Last 24 Hours: Intake & Output 09/19/19 09/20/19 09/20/19 22:59 06:59 14:59 Intake Total 575 Output Total 413 Balance 162 Lab Results Last 24 Hours: Laboratory Results - last 24 hr 09/19/19 09/19/19 09/19/19 Range/Units 09:06 09:06 09:06 WBC 12.39 H (4.0-11.0) K/uL RBC 4.01 L (4.30-5.90) M/uL Hgb 11.1 L (12.0-16.0) g/dL Hct 33.3 L (36.0-46.0) % MCV 83.0 (80.0-98.0) fL MCH 27.7 (27.0-32.0) pg MCHC 33.3 (31.0-37.0) g/dL RDW Std Deviation 41.6 (28.0-62.0) fl RDW Coeff of Alley 14 (11.0-15.0) % Plt Count 360 (150-400) K/uL MPV 10.50 (7.40-12.00) fL Neut % (Auto) 85.1 H (48.0-80.0) % Lymph % (Auto) 5.4 L (16.0-40.0) % [place] % (Auto) 8.6 (0.0-15.0) % Eos % (Auto) 0.7 (0.0-7.0) % Baso % (Auto) 0.2 (0.0-1.5) % Neut # (Auto) 10.5 H (1.4-5.7) K/uL Lymph # (Auto) 0.7 (0.6-2.4) K/uL [place] # (Auto) 1.1 H (0.0-0.8) K/uL Eos # (Auto) 0.1 (0.0-0.7) K/uL Baso # (Auto) 0.0 (0.0-0.1) K/uL Nucleated RBC % 0.0 /100WBC Nucleated RBCs # 0 K/uL INR Lactate 0.7 (0.20-2.00) mmol/L Sodium 131 L (136-145) mmol/L Potassium 4.4 (3.5-5.1) mmol/L Chloride 96 L (98-107) mmol/L Carbon Dioxide 24.6 (21.0-32.0) mmol/L BUN 18 (7.0-18.0) mg/dL Creatinine 0.8 (0.6-1.0) mg/dL Est Cr Clr Drug Dosing 43.44 mL/min Estimated GFR (MDRD) > 60.0 ml/min Glucose 102 (74-106) mg/dL Calcium 9.4 (8.5-10.1) mg/dL Magnesium 1.9 (1.8-2.4) mg/dL Total Bilirubin 0.4 (0.2-1.0) mg/dL AST 18 (15-37) IU/L ALT 21 (14-63) IU/L Alkaline Phosphatase 131 H (46-116) U/L Troponin I < 0.050 (0.000-0.056) ng/mL Total Protein 7.6 (6.4-8.2) g/dL Albumin 3.2 L (3.4-5.0) g/dL Globulin 4.4 H (2.6-4.0) g/dL Albumin/Globulin Ratio 0.7 L (0.9-1.6) Urine Color Urine Appearance Urine pH (5.0-8.0) Ur Specific [place] (1.001-1.035) Urine Protein (NEGATIVE) mg/dL Urine Glucose (UA) (NEGATIVE) mg/dL Urine Ketones (NEGATIVE) mg/dL Urine Occult Blood (NEGATIVE) Urine Nitrite (NEGATIVE) Urine Bilirubin (NEGATIVE) Urine Urobilinogen (<2.0) EU/dL Ur Leukocyte Esterase (NEGATIVE) Urine Opiates Screen (NEGATIVE) Ur Oxycodone Screen (NEGATIVE) Urine Methadone Screen (NEGATIVE) Ur Barbiturates Screen (NEGATIVE) Ur Phencyclidine Scrn (NEGATIVE) Ur Amphetamine Screen (NEGATIVE) U Methamphetamines Scrn (NEGATIVE) U Benzodiazepines Scrn (NEGATIVE) U Cocaine Metab Screen (NEGATIVE) U Marijuana (THC) Screen (NEGATIVE) 09/19/19 09/19/19 09/19/19 Range/Units 09:06 09:10 09:10 WBC (4.0-11.0) K/uL RBC (4.30-5.90) M/uL Hgb (12.0-16.0) g/dL Hct (36.0-46.0) % MCV (80.0-98.0) fL MCH (27.0-32.0) pg MCHC (31.0-37.0) g/dL RDW Std Deviation (28.0-62.0) fl RDW Coeff of [place] (11.0-15.0) % Plt Count (150-400) K/uL MPV (7.40-12.00) fL Neut % (Auto) (48.0-80.0) % Lymph % (Auto) (16.0-40.0) % [place] % (Auto) (0.0-15.0) % Eos % (Auto) (0.0-7.0) % Baso % (Auto) (0.0-1.5) % Neut # (Auto) (1.4-5.7) K/uL Lymph # (Auto) (0.6-2.4) K/uL [place] # (Auto) (0.0-0.8) K/uL Eos # (Auto) (0.0-0.7) K/uL Baso # (Auto) (0.0-0.1) K/uL Nucleated RBC % /100WBC Nucleated RBCs # K/uL INR 0.98 Lactate (0.20-2.00) mmol/L Sodium (136-145) mmol/L Potassium (3.5-5.1) mmol/L Chloride (98-107) mmol/L Carbon Dioxide (21.0-32.0) mmol/L BUN (7.0-18.0) mg/dL Creatinine (0.6-1.0) mg/dL Est Cr Clr Drug Dosing mL/min Estimated GFR (MDRD) ml/min Glucose (74-106) mg/dL Calcium (8.5-10.1) mg/dL Magnesium (1.8-2.4) mg/dL Total Bilirubin (0.2-1.0) mg/dL AST (15-37) IU/L ALT (14-63) IU/L Alkaline Phosphatase (46-116) U/L Troponin I (0.000-0.056) ng/mL Total Protein (6.4-8.2) g/dL Albumin (3.4-5.0) g/dL Globulin (2.6-4.0) g/dL Albumin/Globulin Ratio (0.9-1.6) Urine Color YELLOW Urine Appearance CLEAR Urine pH 6.0 (5.0-8.0) Ur Specific [place] 1.010 (1.001-1.035) Urine Protein NEGATIVE (NEGATIVE) mg/dL Urine Glucose (UA) NEGATIVE (NEGATIVE) mg/dL Urine Ketones NEGATIVE (NEGATIVE) mg/dL Urine Occult Blood NEGATIVE (NEGATIVE) Urine Nitrite NEGATIVE (NEGATIVE) Urine Bilirubin NEGATIVE (NEGATIVE) Urine Urobilinogen 0.2 (<2.0) EU/dL Ur Leukocyte Esterase NEGATIVE (NEGATIVE) Urine Opiates Screen NEGATIVE (NEGATIVE) Ur Oxycodone Screen NEGATIVE (NEGATIVE) Urine Methadone Screen NEGATIVE (NEGATIVE) Ur Barbiturates Screen NEGATIVE (NEGATIVE) Ur Phencyclidine Scrn NEGATIVE (NEGATIVE) Ur Amphetamine Screen NEGATIVE (NEGATIVE) U Methamphetamines Scrn NEGATIVE (NEGATIVE) U Benzodiazepines Scrn NEGATIVE (NEGATIVE) U Cocaine Metab Screen NEGATIVE (NEGATIVE) U Marijuana (THC) Screen NEGATIVE (NEGATIVE) 09/20/19 09/20/19 Range/Units 05:00 05:00 WBC 12.24 H (4.0-11.0) K/uL RBC 3.95 L (4.30-5.90) M/uL Hgb 10.9 L (12.0-16.0) g/dL Hct 33.1 L (36.0-46.0) % MCV 83.8 (80.0-98.0) fL MCH 27.6 (27.0-32.0) pg MCHC 32.9 (31.0-37.0) g/dL RDW Std Deviation 42.3 (28.0-62.0) fl RDW Coeff of [place]ley 14 (11.0-15.0) % Plt Count 384 (150-400) K/uL MPV 10.50 (7.40-12.00) fL Neut % (Auto) 84.8 H (48.0-80.0) % Lymph % (Auto) 6.7 L (16.0-40.0) % [place] % (Auto) 7.4 (0.0-15.0) % Eos % (Auto) 0.8 (0.0-7.0) % Baso % (Auto) 0.3 (0.0-1.5) % Neut # (Auto) 10.4 H (1.4-5.7) K/uL Lymph # (Auto) 0.8 (0.6-2.4) K/uL [place] # (Auto) 0.9 H (0.0-0.8) K/uL Eos # (Auto) 0.1 (0.0-0.7) K/uL Baso # (Auto) 0.0 (0.0-0.1) K/uL Nucleated RBC % 0.0 /100WBC Nucleated RBCs # 0 K/uL INR Lactate (0.20-2.00) mmol/L Sodium 137 (136-145) mmol/L Potassium 4.0 (3.5-5.1) mmol/L Chloride 102 (98-107) mmol/L Carbon Dioxide 24.0 (21.0-32.0) mmol/L BUN 16 (7.0-18.0) mg/dL Creatinine 0.9 (0.6-1.0) mg/dL Est Cr Clr Drug Dosing 36.76 mL/min Estimated GFR (MDRD) > 60.0 ml/min Glucose 94 (74-106) mg/dL Calcium 9.1 (8.5-10.1) mg/dL Magnesium (1.8-2.4) mg/dL Total Bilirubin (0.2-1.0) mg/dL AST (15-37) IU/L ALT (14-63) IU/L Alkaline Phosphatase (46-116) U/L Troponin I (0.000-0.056) ng/mL Total Protein (6.4-8.2) g/dL Albumin (3.4-5.0) g/dL Globulin (2.6-4.0) g/dL Albumin/Globulin Ratio (0.9-1.6) Urine Color Urine Appearance Urine pH (5.0-8.0) Ur Specific [place] (1.001-1.035) Urine Protein (NEGATIVE) mg/dL Urine Glucose (UA) (NEGATIVE) mg/dL Urine Ketones (NEGATIVE) mg/dL Urine Occult Blood (NEGATIVE) Urine Nitrite (NEGATIVE) Urine Bilirubin (NEGATIVE) Urine Urobilinogen (<2.0) EU/dL Ur Leukocyte Esterase (NEGATIVE) Urine Opiates Screen (NEGATIVE) Ur Oxycodone Screen (NEGATIVE) Urine Methadone Screen (NEGATIVE) Ur Barbiturates Screen (NEGATIVE) Ur Phencyclidine Scrn (NEGATIVE) Ur Amphetamine Screen (NEGATIVE) U Methamphetamines Scrn (NEGATIVE) U Benzodiazepines Scrn (NEGATIVE) U Cocaine Metab Screen (NEGATIVE) U Marijuana (THC) Screen (NEGATIVE) Med Orders - Current: Current Medications Sodium Chloride (Normal Saline) 500 mls @ 500 mls/hr IV .BOLUS [facility] Last Admin: 09/19/19 09:24 Dose: 500 mls/hr Sodium Chloride (Normal Saline) 1,000 mls @ 50 mls/hr IV Q20H [facility] Last Admin: 09/19/19 17:24 Dose: 50 mls/hr Latanoprost (Xalatan 0.005% Ophth Soln) 0 ml EYEBOTH BEDTIME [facility] Last Admin: 09/19/19 21:19 Dose: Not Given Ondansetron HCl (Zofran) 4 mg IVPUSH Q4H PRN PRN Reason: Nausea Brimonidine/Timolol (1 Drop) 1 each EYEBOTH Q12H [facility] Last Admin: 09/20/19 02:04 Dose: 1 each Pilocarpine HCl (Pilocar 4% Ophth Soln) 0 ml EYEBOTH QID [facility] Last Admin: 09/20/19 06:08 Dose: 1 drop Discontinued Medications Gadobenate Dimeglumine (Multihance) 20 ml IVPUSH ONETIME STA Stop: 09/19/19 15:47 Last Admin: 09/19/19 16:07 Dose: 6 ml Iopamidol (Isovue Multipack-370 (76%)) 100 ml IVPUSH ONETIME ONE Stop: 09/19/19 18:35 Last Admin: 09/19/19 18:34 Dose: 100 ml Naloxone HCl (Narcan) 1 mg IV ONETIME ONE Stop: 09/19/19 09:21 Last Admin: 09/19/19 09:26 Dose: 1 mg - Exam General: No: Alert, Oriented HEENT: Pupils Equal (pinpoint) Lungs: Clear to Auscultation, Normal Respiratory Effort Cardiovascular: Regular Rate, Regular Rhythm GI/Abdominal Exam: Normal Bowel Sounds, Soft, Non-Tender Extremities: Normal Inspection, Normal Range of Motion Wound/Incisions: Erythema (noted to L wrist, swelling noted) Neurological: Other (does not follow commands) Sepsis Event Note - Evaluation Sepsis Screening Result: No Definite Risk - Focused Exam Vital Signs: Vital Signs Temp Pulse Resp BP Pulse Ox 09/20/19 08:00 98.7 F 93 19 183/95 H 96 09/20/19 04:00 98.1 F 81 18 160/72 H 95 09/20/19 00:00 97.9 F 78 19 157/70 H 96 Date Exam was Performed: 09/20/19 Time Exam was Performed: 11:25 - Problem List & Annotations (1) AMS (altered mental status) SNOMED Code(s): 644800582 Code(s): R41.82 - ALTERED MENTAL STATUS, UNSPECIFIED Status: Acute Current Visit: Yes Qualifiers: Altered mental status type: unspecified Qualified Code(s): R41.82 - Altered mental status, unspecified (2) Dehydration SNOMED Code(s): 78979164 Code(s): E86.0 - DEHYDRATION Status: Acute Current Visit: Yes (3) Dementia SNOMED Code(s): 92591563 Code(s): F03.90 - UNSPECIFIED DEMENTIA WITHOUT BEHAVIORAL DISTURBANCE Status: Acute Current Visit: No Qualifiers: Dementia type: Alzheimer's disease Alzheimer's disease onset: other onset Dementia behavioral disturbance: without behavioral disturbance Qualified Code(s): G30.8 - Other Alzheimer's disease; F02.80 - Dementia in other diseases classified elsewhere without behavioral disturbance (4) Anemia SNOMED Code(s): 120643592 Code(s): D64.9 - ANEMIA, UNSPECIFIED Status: Chronic Priority: Medium Current Visit: No Qualifiers: Anemia type: other cause Other causes of anemia: nutritional, other Qualified Code(s): D53.8 - Other specified nutritional anemias (5) Glaucoma SNOMED Code(s): 40989060 Code(s): H40.9 - UNSPECIFIED GLAUCOMA Status: Chronic Current Visit: No (6) HTN (hypertension) SNOMED Code(s): 41394011 Code(s): I10 - ESSENTIAL (PRIMARY) HYPERTENSION Status: Chronic Priority : Medium Current Visit: No Qualifiers: Hypertension type: essential hypertension Qualified Code(s): I10 - Essential (primary) hypertension - Problem List Review Problem List Initiated/Reviewed/Updated: Yes - My Orders Last 24 Hours: My Active Orders 09/19/19 13:30 Telemetry Monitoring [Cardiac Monitoring] [RC] Q8H 09/19/19 13:33 EEG Awake Drowsy [RC] ROUTINE 09/19/19 13:35 Oxygen Therapy [RC] PRN Up ad Yris [RC] ASDIRECTED VTE/DVT Education [RC] PER UNIT ROUTINE Vital Signs [RC] Q4H Ondansetron [Zofran] 4 mg IVPUSH Q4H PRN Resuscitation Status Routine 09/19/19 14:00 Patient's Own Medication [Ptom] 1 each EYEBOTH Q12H Sodium Chloride 0.9% [Normal Saline] 1,000 ml IV Q20H 09/19/19 16:47 Consult to Physician [CONS] Routine 09/19/19 16:48 Notify Provider Consults [RC] ASDIRECTED 09/19/19 17:09 Aspiration Precautions [RC] ASDIRECTED 09/19/19 18:00 Pilocarpine [Pilocar 4% Ophth Soln] 0 ml EYEBOTH QID 09/19/19 21:00 Latanoprost [Xalatan 0.005% Ophth Soln] 0 ml EYEBOTH BEDTIME 09/19/19 Dinner Nothing per Oral Now Diet [DIET] - Plan Plan:: This 79 year old female admitted with AMS, unresponsive 1. AMS: Mumbling and waking up slightly. Spoke with Dr. Little regarding MRI and CTA results, low suspicion for meningitis due to sudden nature of event. Suspect vascular event, will get MRV today to rule out venous thrombosis. Will also add paraneoplastic panel per Dr Little's recommendations. Tox screen negative. Monitor on telemetry for any arrhythmia. Allow for permissive HTN for possible stroke. NPO due to risk of aspiration, aspiration precautions in place. Will add gentle IVF 50 ml/hr. Update daughter when further results available. 2. L hand wrist cellulitis: Leukocytosis remains at 12,000. L wrist red this morning and patient reports pain when touched. Not present on admission, only mild swelling noted. Obtained Xray, no bony abnormalities but noted diffuse tissue swelling. Uric acid normal. Will start Vancomycin for cellulitis. 3. HTN: Stable. Allow for permissive HTN. 4. Glaucoma: Continue eye drops VTE prophylaxis: Heparin Dispo: 2-3 days pending
[2019-09-20] MEDS: Heparin Sodium 5,000 Units/ML Vial SUBCUT SCH ×2 (10:01→18:05)
[2019-09-20] MEDS: Sodium Chloride 0.9% 1,000 ML IV SCH (10:06)
--- NOTE | 2019-09-20 11:19 | CR ---
Left wrist: 2 views of the left wrist were obtained. Comparison: Previous left wrist study of 03/01/15. Findings: Diffuse soft tissue swelling is seen within the wrist and distal forearm. Bony structures are osteopenic. Mild joint space narrowing is noted off the distal navicular bone. No focal erosive change is seen. Chondrocalcinosis is noted within the triangular fibrocartilage. No fracture or other abnormality is appreciated. Impression: 1. Wrist findings as noted above. No acute bony abnormality is seen. 2. Diffuse soft tissue swelling. Diagnostic code #3 This report was dictated in [place] Standard Time
--- NOTE | 2019-09-20 12:24 | PCM.CONSN ---
- General Info Date of Service: 09/20/19 Subjective Update: I spoke to her sister in law Alem who is listed as her contact. She provided me with information about previous spells. She noted that they started 3-4 years ago. She would lose consciousness and drop to the ground the recover over a minute. She was having about 2x / week when she was spending time with Pat more regularly, which hasn't done as much lately due to dementia. - Patient Data Vitals - Most Recent: Last Vital Signs Temp 37.1 C 09/20/19 08:00 Pulse 93 09/20/19 08:00 Resp 19 09/20/19 08:00 BP 183/95 H 09/20/19 08:00 Pulse Ox 96 09/20/19 08:00 Weight - Most Recent: 47.5 kg I&O - Last 24 Hours: Intake & Output 09/19/19 09/20/19 09/20/19 22:59 06:59 14:59 Intake Total 575 Output Total 413 Balance 162 Lab Results Last 24 Hours: Laboratory Results - last 24 hr 09/19/19 09/20/19 09/20/19 Range/Units 09:10 05:00 05:00 WBC 12.24 H (4.0-11.0) K/uL RBC 3.95 L (4.30-5.90) M/uL Hgb 10.9 L (12.0-16.0) g/dL Hct 33.1 L (36.0-46.0) % MCV 83.8 (80.0-98.0) fL MCH 27.6 (27.0-32.0) pg MCHC 32.9 (31.0-37.0) g/dL RDW Std Deviation 42.3 (28.0-62.0) fl RDW Coeff of [place] 14 (11.0-15.0) % Plt Count 384 (150-400) K/uL MPV 10.50 (7.40-12.00) fL Neut % (Auto) 84.8 H (48.0-80.0) % Lymph % (Auto) 6.7 L (16.0-40.0) % [place] % (Auto) 7.4 (0.0-15.0) % Eos % (Auto) 0.8 (0.0-7.0) % Baso % (Auto) 0.3 (0.0-1.5) % Neut # (Auto) 10.4 H (1.4-5.7) K/uL Lymph # (Auto) 0.8 (0.6-2.4) K/uL [place] # (Auto) 0.9 H (0.0-0.8) K/uL Eos # (Auto) 0.1 (0.0-0.7) K/uL Baso # (Auto) 0.0 (0.0-0.1) K/uL Nucleated RBC % 0.0 /100WBC Nucleated RBCs # 0 K/uL Sodium 137 (136-145) mmol/L Potassium 4.0 (3.5-5.1) mmol/L Chloride 102 (98-107) mmol/L Carbon Dioxide 24.0 (21.0-32.0) mmol/L BUN 16 (7.0-18.0) mg/dL Creatinine 0.9 (0.6-1.0) mg/dL Est Cr Clr Drug Dosing 36.76 mL/min Estimated GFR (MDRD) > 60.0 ml/min Glucose 94 (74-106) mg/dL Uric Acid (2.6-7.2) mg/dL Calcium 9.1 (8.5-10.1) mg/dL Urine Opiates Screen NEGATIVE (NEGATIVE) Ur Oxycodone Screen NEGATIVE (NEGATIVE) Urine Methadone Screen NEGATIVE (NEGATIVE) Ur Barbiturates Screen NEGATIVE (NEGATIVE) Ur Phencyclidine Scrn NEGATIVE (NEGATIVE) Ur Amphetamine Screen NEGATIVE (NEGATIVE) U Methamphetamines Scrn NEGATIVE (NEGATIVE) U Benzodiazepines Scrn NEGATIVE (NEGATIVE) U Cocaine Metab Screen NEGATIVE (NEGATIVE) U Marijuana (THC) Screen NEGATIVE (NEGATIVE) 09/20/19 Range/Units 05:00 WBC (4.0-11.0) K/uL RBC (4.30-5.90) M/uL Hgb (12.0-16.0) g/dL Hct (36.0-46.0) % MCV (80.0-98.0) fL MCH (27.0-32.0) pg MCHC (31.0-37.0) g/dL RDW Std Deviation (28.0-62.0) fl RDW Coeff of [place] (11.0-15.0) % Plt Count (150-400) K/uL MPV (7.40-12.00) fL Neut % (Auto) (48.0-80.0) % Lymph % (Auto) (16.0-40.0) % [place] % (Auto) (0.0-15.0) % Eos % (Auto) (0.0-7.0) % Baso % (Auto) (0.0-1.5) % Neut # (Auto) (1.4-5.7) K/uL Lymph # (Auto) (0.6-2.4) K/uL [place] # (Auto) (0.0-0.8) K/uL Eos # (Auto) (0.0-0.7) K/uL Baso # (Auto) (0.0-0.1) K/uL Nucleated RBC % /100WBC Nucleated RBCs # K/uL Sodium (136-145) mmol/L Potassium (3.5-5.1) mmol/L Chloride (98-107) mmol/L Carbon Dioxide (21.0-32.0) mmol/L BUN (7.0-18.0) mg/dL Creatinine (0.6-1.0) mg/dL Est Cr Clr Drug Dosing mL/min Estimated GFR (MDRD) ml/min Glucose (74-106) mg/dL Uric Acid 5.5 (2.6-7.2) mg/dL Calcium (8.5-10.1) mg/dL Urine Opiates Screen (NEGATIVE) Ur Oxycodone Screen (NEGATIVE) Urine Methadone Screen (NEGATIVE) Ur Barbiturates Screen (NEGATIVE) Ur Phencyclidine Scrn (NEGATIVE) Ur Amphetamine Screen (NEGATIVE) U Methamphetamines Scrn (NEGATIVE) U Benzodiazepines Scrn (NEGATIVE) U Cocaine Metab Screen (NEGATIVE) U Marijuana (THC) Screen (NEGATIVE) Med Orders - Current: Current Medications Heparin Sodium (Porcine) (Heparin Sodium) 5,000 units SUBCUT Q8H [facility] Last Admin: 09/20/19 10:01 Dose: 5,000 units Sodium Chloride (Normal Saline) 500 mls @ 500 mls/hr IV .BOLUS [facility] Last Admin: 09/19/19 09:24 Dose: 500 mls/hr Sodium Chloride (Normal Saline) 1,000 mls @ 50 mls/hr IV Q20H [facility] Last Admin: 09/20/19 10:06 Dose: 50 mls/hr Vancomycin HCl 0.75 gm/ Sodium (Chloride) 250 mls @ 250 mls/hr IV Q24H [facility] Last Admin: 09/20/19 10:25 Dose: 250 mls/hr Ondansetron HCl (Zofran) 4 mg IVPUSH Q4H PRN PRN Reason: Nausea Brimonidine/Timolol (1 Drop) 1 each EYEBOTH Q12H [facility] Last Admin: 09/20/19 02:04 Dose: 1 each Pilocarpine 4% Ophth (Soln 15 Ml Bot) 0 each EYEBOTH QID [facility] Latanoprost 0.005% Ophth Soln 2.5 Ml Bottle 0 each EYEBOTH BEDTIME [facility] Discontinued Medications Gadobenate Dimeglumine (Multihance) 20 ml IVPUSH ONETIME STA Stop: 09/19/19 15:47 Last Admin: 09/19/19 16:07 Dose: 6 ml Iopamidol (Isovue Multipack-370 (76%)) 100 ml IVPUSH ONETIME ONE Stop: 09/19/19 18:35 Last Admin: 09/19/19 18:34 Dose: 100 ml Latanoprost (Xalatan 0.005% Ophth Soln) 0 ml EYEBOTH BEDTIME [facility] Last Admin: 09/19/19 21:19 Dose: Not Given Naloxone HCl (Narcan) 1 mg IV ONETIME ONE Stop: 09/19/19 09:21 Last Admin: 09/19/19 09:26 Dose: 1 mg Pilocarpine HCl (Pilocar 4% Ophth Soln) 0 ml EYEBOTH QID [facility] Last Admin: 09/20/19 06:08 Dose: 1 drop Comments:: CTA head and neck low flow in proximal and mid right vertebral artery - Exam Physical Findings Comments:: Mental Status mumbles a few syllables, mostly unintelligible but states it hurts when I moved her swollen left wrist. Moves legs when asked to lift them. CN: pupils pinpoint, no movement with Dolls, +corneals bilaterally Motor: Moves both upper and lower limbs Sepsis Event Note - Evaluation Sepsis Screening Result: No Definite Risk - Focused Exam Vital Signs: Vital Signs Temp Pulse Resp BP Pulse Ox 09/20/19 08:00 37.1 C 93 19 183/95 H 96 09/20/19 04:00 36.7 C 81 18 160/72 H 95 Date Exam was Performed: 09/20/19 Time Exam was Performed: 12:14 Consult PN Assessment/Plan Procedures: Procedures ASSAY OF BLOOD OSMOLALITY (09/02/18) ASSAY OF CK (CPK) (03/01/15) ASSAY OF FERRITIN (09/02/18) ASSAY OF LIPASE (09/02/18) ASSAY OF MAGNESIUM (09/02/18) ASSAY OF TROPONIN QUANT (04/03/19) ASSAY OF URINE CREATININE (09/02/18) ASSAY OF URINE OSMOLALITY (09/02/18) ASSAY OF URINE POTASSIUM (09/02/18) ASSAY OF URINE SODIUM (09/02/18) ASSAY OF URINE/UREA-N (09/02/18) ASSAY THYROID STIM HORMONE (09/02/18) AUTOMATED RETICULOCYTE COUNT (09/02/18) BLOOD TRANSFUSION SERVICE (03/01/15) BLOOD TYPING SEROLOGIC ABO (03/01/15) BLOOD TYPING SEROLOGIC RH(D) (03/01/15) C-REACTIVE PROTEIN (03/01/15) CHEST X-RAY 1 VIEW FRONTAL (03/01/15) COMPATIBILITY TEST ANTIGLOB (03/01/15) COMPATIBILITY TEST INCUBATE (03/01/15) COMPATIBILITY TEST SPIN (03/01/15) COMPLETE CBC AUTOMATED (03/01/15) COMPLETE CBC W/AUTO DIFF WBC (06/14/19) COMPREHEN METABOLIC PANEL (06/14/19) CT HEAD/BRAIN W/DYE (07/05/19) CT HEAD/BRAIN W/O DYE (04/03/19) CT LUMBAR SPINE W/O DYE (10/27/17) CT NECK SPINE W/O DYE (04/03/19) CT THORAX W/O & W/DYE (05/11/19) DECALCIFY TISSUE (03/01/15) DRUG TEST PRSMV DIR OPT OBS (09/02/18) ELECTROCARDIOGRAM TRACING (06/14/19) EMERGENCY DEPT VISIT (06/14/19) GAIT TRAINING THERAPY (03/01/15) GLUCOSE BLOOD TEST (03/01/15) HEMATOCRIT (03/01/15) HEMOGLOBIN (03/01/15) HYDRATE IV INFUSION ADD-ON (09/02/18) HYDRATION IV INFUSION INIT (06/14/19) IRON BINDING TEST (09/02/18) METABOLIC PANEL TOTAL CA (09/02/18) OCCULT BLD FECES 1-3 TESTS (09/02/18) OT EVAL LOW COMPLEX 30 MIN (09/02/18) PROTHROMBIN TIME (04/03/19) PT EVAL LOW COMPLEX 20 MIN (09/02/18) PT EVALUATION (03/01/15) RBC ANTIBODY SCREEN (03/01/15) ROUTINE VENIPUNCTURE (04/03/19) THER/DIAG CONCURRENT INF (09/04/18) THER/PROPH/DIAG INJ IV PUSH (10/27/17) THER/PROPH/DIAG INJ SC/IM (10/27/17) THER/PROPH/DIAG IV INF ADDON (09/04/18) THER/PROPH/DIAG IV INF INIT (09/02/18) THERAPEUTIC ACTIVITIES (09/02/18) THERAPEUTIC EXERCISES (10/27/17) TISSUE EXAM BY PATHOLOGIST (03/01/15) TX/PRO/DX INJ NEW DRUG ADDON (09/04/18) TX/PROPH/DG ADDL SEQ IV INF (09/04/18) URINALYSIS AUTO W/SCOPE (06/14/19) URINE CULTURE/COLONY COUNT (06/14/19) X-RAY EXAM CHEST 1 VIEW (09/02/18) X-RAY EXAM L-S SPINE 2/3 VWS (10/27/17) X-RAY EXAM OF ELBOW (04/03/19) X-RAY EXAM OF HIP (03/01/15) X-RAY EXAM OF HIP (03/01/15) X-RAY EXAM OF HIP (03/01/15) X-RAY EXAM OF HUMERUS (03/01/15) X-RAY EXAM OF PELVIS (10/27/17) X-RAY EXAM OF PELVIS (04/19/15) X-RAY EXAM OF PELVIS (03/01/15) X-RAY EXAM OF SHOULDER (04/03/19) X-RAY EXAM OF WRIST (03/01/15) X-RAY EXAM UNILAT RIBS/CHEST (10/27/17) (1) AMS (altered mental status) SNOMED Code(s): 724336900 Code(s): R41.82 - ALTERED MENTAL STATUS, UNSPECIFIED Current Visit: Yes Qualifiers: Altered mental status type: unspecified Qualified Code(s): R41.82 - Altered mental status, unspecified Assessment:: AMS, restricted diffusion midbrain and bilateral thalami Onset was abrupt favoring anoxic or ischemic cause. 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 She has had correction of hyponatremia raising possibility of ODS, but last that I am aware of was months ago. Venous sinus thrombosis is a consideration, so I recommend MRV. My suspicion for inflammatory cause is low based on clinical presentation and radiologic appearance, but paraneoplastic panel is reasonable. No contrast enhancement is noted. Updated her [id number] Alem who is listed as next of kin and contact (not legally POA) about imaging results, and suspicion for stroke/hypoxia, current mental status and possibility of her not being able to get nutrition without feeding tube.Pat notes that Mimi would not want that, but next of kin is her daughter Darcie Palumbo. Problem List Initiated/Reviewed/Updated: Yes
--- NOTE | 2019-09-20 14:12 | PCM.SN ---
- Free Text/Narrative Note: Did speak with daughter Clarice regarding current status of her mother. She was updated on suspicion of vascular event for this as well as recommendations by Dr Little. I did speak to her about life prolonging interventions, which she stated she has an advanced directive at [place], but she is unsure of what it says regarding this, but feels it is not something her mother would want. We will keep her updated on her mother's status and results of MRV which is pending. Clarice [phone]
[2019-09-20] MEDS: Latanoprost 0.005% Ophth Soln 2.5 ML Bottle EYEBOTH SCH (20:28)
[2019-09-21] MEDS: Pilocarpine 4% Ophth Soln 15 ML Bot EYEBOTH SCH ×4 (00:06→17:32)
--- NOTE | 2019-09-21 00:48 | MR ---
INDICATION: Acute mental status changes. TECHNIQUE: Performed without IV contrast. Comparison: : No previous MR venography. FINDINGS: This study is moderately degraded by patient motion artifact. The lateral aspect of the left transverse sinus and its junction with the left sigmoid sinus is not well evaluated. The patent left internal jugular vein is not identified. The superior sagittal and straight sinuses, the right transverse and sigmoid sinuses, the vein of Jacob, both internal cerebral veins and basal veins of [place] and the right internal jugular veins are patent. IMPRESSION: 1. The study is considerably degraded by patient motion. 2. The status of the junction of the left transverse and sigmoid sinuses and the left internal jugular vein remain indeterminate on this exam. 3. Gadolinium-enhanced images may be helpful when permitted by the patient`s clinical condition. Dictated by Kishan Wood MD @ Sep 21 2019 8:06AM Signed by Dr. Kishan Wood @ Sep 21 2019 8:11AM
[2019-09-21] MEDS: BRIMONIDINE EYEBOTH SCH ×2 (02:01→13:44)
[2019-09-21] MEDS: TIMOLOL EYEBOTH SCH ×2 (02:01→13:44)
[2019-09-21] MEDS: Heparin Sodium 5,000 Units/ML Vial SUBCUT SCH ×2 (02:02→09:31)
[2019-09-21] MEDS: Sodium Chloride 0.9% 1,000 ML IV SCH (05:48)
[2019-09-21 06:18] LABS: BLOOD UREA NITROGEN,BUN 16 mg/dL (7.0-18.0); CARBON DIOXIDE,CO2 20.5 mmol/L (21.0-32.0); CHLORIDE,CL 105 mmol/L (98-107); GLUCOSE RANDOM 82 mg/dL (74-106); POTASSIUM,K 3.4 mmol/L (3.5-5.1); SODIUM,NA 139 mmol/L (136-145)
--- NOTE | 2019-09-21 11:08 | PCM.PN ---
- General Info Date of Service: 09/21/19 Admission Dx/Problem (Free Text): Admission Diagnosis/Problem Admission Diagnosis/Problem Altered mental status Subjective Update: Incoherent mumbling, does not follow commands completely. - Patient Data Vitals - Most Recent: Last Vital Signs Temp 97.7 F 09/21/19 07:57 Pulse 89 09/21/19 07:57 Resp 18 09/21/19 07:57 BP 177/85 H 09/21/19 07:57 Pulse Ox 96 09/21/19 07:57 Weight - Most Recent: 47.5 kg I&O - Last 24 Hours: Intake & Output 09/20/19 09/21/19 09/21/19 22:59 06:59 14:59 Intake Total 734 608 Output Total 700 Balance 734 -92 Lab Results Last 24 Hours: Laboratory Results - last 24 hr 09/21/19 09/21/19 Range/Units 05:35 05:35 WBC 11.50 H (4.0-11.0) K/uL RBC 3.66 L (4.30-5.90) M/uL Hgb 9.9 L (12.0-16.0) g/dL Hct 31.1 L (36.0-46.0) % MCV 85.0 (80.0-98.0) fL MCH 27.0 (27.0-32.0) pg MCHC 31.8 (31.0-37.0) g/dL RDW Std Deviation 42.8 (28.0-62.0) fl RDW Coeff of Alley 14 (11.0-15.0) % Plt Count 340 (150-400) K/uL MPV 10.20 (7.40-12.00) fL Neut % (Auto) 82.5 H (48.0-80.0) % Lymph % (Auto) 5.9 L (16.0-40.0) % [place] % (Auto) 9.7 (0.0-15.0) % Eos % (Auto) 1.3 (0.0-7.0) % Baso % (Auto) 0.6 (0.0-1.5) % Neut # (Auto) 9.5 H (1.4-5.7) K/uL Lymph # (Auto) 0.7 (0.6-2.4) K/uL [place] # (Auto) 1.1 H (0.0-0.8) K/uL Eos # (Auto) 0.2 (0.0-0.7) K/uL Baso # (Auto) 0.1 (0.0-0.1) K/uL Nucleated RBC % 0.0 /100WBC Nucleated RBCs # 0 K/uL Sodium 139 (136-145) mmol/L Potassium 3.4 L (3.5-5.1) mmol/L Chloride 105 (98-107) mmol/L Carbon Dioxide 20.5 L (21.0-32.0) mmol/L BUN 16 (7.0-18.0) mg/dL Creatinine 0.8 (0.6-1.0) mg/dL Est Cr Clr Drug Dosing 41.36 mL/min Estimated GFR (MDRD) > 60.0 ml/min Glucose 82 (74-106) mg/dL Calcium 9.0 (8.5-10.1) mg/dL Med Orders - Current: Current Medications Heparin Sodium (Porcine) (Heparin Sodium) 5,000 units SUBCUT Q8H [facility] Last Admin: 09/21/19 09:31 Dose: 5,000 units Sodium Chloride (Normal Saline) 500 mls @ 500 mls/hr IV .BOLUS [facility] Last Admin: 09/19/19 09:24 Dose: 500 mls/hr Sodium Chloride (Normal Saline) 1,000 mls @ 50 mls/hr IV Q20H [facility] Last Admin: 09/21/19 05:48 Dose: 50 mls/hr Vancomycin HCl 0.75 gm/ Sodium (Chloride) 250 mls @ 250 mls/hr IV Q24H [facility] Last Admin: 09/21/19 09:46 Dose: 250 mls/hr Morphine Sulfate (Morphine) 1 mg IVPUSH Q4H PRN PRN Reason: Pain Ondansetron HCl (Zofran) 4 mg IVPUSH Q4H PRN PRN Reason: Nausea Brimonidine/Timolol (1 Drop) 1 each EYEBOTH Q12H [facility] Last Admin: 09/21/19 02:01 Dose: 1 each Pilocarpine 4% Ophth (Soln 15 Ml Bot) 0 each EYEBOTH QID [facility] Last Admin: 09/21/19 05:49 Dose: 1 each Latanoprost 0.005% Ophth Soln 2.5 Ml Bottle 0 each EYEBOTH BEDTIME [facility] Last Admin: 09/20/19 20:28 Dose: 1 each Discontinued Medications Gadobenate Dimeglumine (Multihance) 20 ml IVPUSH ONETIME STA Stop: 09/19/19 15:47 Last Admin: 09/19/19 16:07 Dose: 6 ml Iopamidol (Isovue Multipack-370 (76%)) 100 ml IVPUSH ONETIME ONE Stop: 09/19/19 18:35 Last Admin: 09/19/19 18:34 Dose: 100 ml Latanoprost (Xalatan 0.005% Ophth Soln) 0 ml EYEBOTH BEDTIME [facility] Last Admin: 09/19/19 21:19 Dose: Not Given Naloxone HCl (Narcan) 1 mg IV ONETIME ONE Stop: 09/19/19 09:21 Last Admin: 09/19/19 09:26 Dose: 1 mg Pilocarpine HCl (Pilocar 4% Ophth Soln) 0 ml EYEBOTH QID [facility] Last Admin: 09/20/19 15:18 Dose: Not Given - Exam General: Obtunded. No: Alert HEENT: No: Pupils Equal (pinpoint) Lungs: Clear to Auscultation, Normal Respiratory Effort Cardiovascular: Regular Rate, Regular Rhythm GI/Abdominal Exam: Normal Bowel Sounds, Soft, Non-Tender Extremities: No Pedal Edema, Joint Swelling (L wrist) Neurological: No New Focal Deficit Psy/Mental Status: Alert, Normal Affect, Normal Mood Sepsis Event Note - Evaluation Sepsis Screening Result: No Definite Risk - Focused Exam Vital Signs: Vital Signs Temp Pulse Resp BP Pulse Ox 09/21/19 07:57 97.7 F 89 18 177/85 H 96 09/21/19 04:00 97.3 F 80 20 179/89 H 96 09/21/19 00:08 97.1 F 76 16 155/68 H 95 Date Exam was Performed: 09/21/19 Time Exam was Performed: 13:02 - Problem List & Annotations (1) AMS (altered mental status) SNOMED Code(s): 338653593 Code(s): R41.82 - ALTERED MENTAL STATUS, UNSPECIFIED Status: Acute Current Visit: Yes Qualifiers: Altered mental status type: unspecified Qualified Code(s): R41.82 - Altered mental status, unspecified (2) Dehydration SNOMED Code(s): 90407887 Code(s): E86.0 - DEHYDRATION Status: Acute Current Visit: Yes (3) Dementia SNOMED Code(s): 75494084 Code(s): F03.90 - UNSPECIFIED DEMENTIA WITHOUT BEHAVIORAL DISTURBANCE Status: Acute Current Visit: No Qualifiers: Dementia type: Alzheimer's disease Alzheimer's disease onset: other onset Dementia behavioral disturbance: without behavioral disturbance Qualified Code(s): G30.8 - Other Alzheimer's disease; F02.80 - Dementia in other diseases classified elsewhere without behavioral disturbance (4) Anemia SNOMED Code(s): 829420742 Code(s): D64.9 - ANEMIA, UNSPECIFIED Status: Chronic Priority: Medium Current Visit: No Qualifiers: Anemia type: other cause Other causes of anemia: nutritional, other Qualified Code(s): D53.8 - Other specified nutritional anemias (5) Glaucoma SNOMED Code(s): 84057798 Code(s): H40.9 - UNSPECIFIED GLAUCOMA Status: Chronic Current Visit: No (6) HTN (hypertension) SNOMED Code(s): 03556361 Code(s): I10 - ESSENTIAL (PRIMARY) HYPERTENSION Status: Chronic Priority : Medium Current Visit: No Qualifiers: Hypertension type: essential hypertension Qualified Code(s): I10 - Essential (primary) hypertension - Problem List Review Problem List Initiated/Reviewed/Updated: Yes - My Orders Last 24 Hours: My Active Orders 09/20/19 12:11 PARANEOPLSTC AUTO AB BRAD,S [REF] Routine 09/20/19 18:00 Patient's Own Medication [Ptom] 0 each EYEBOTH QID 09/20/19 21:00 Patient's Own Medication [Ptom] 0 each EYEBOTH BEDTIME 09/21/19 10:50 Morphine 1 mg IVPUSH Q4H PRN 09/22/19 05:11 BMP [BASIC METABOLIC PANEL,BMP] [CHEM] AM CBC WITH AUTO DIFF [HEME] AM 09/23/19 05:11 BMP [BASIC METABOLIC PANEL,BMP] [CHEM] AM CBC WITH AUTO DIFF [HEME] AM - Plan Plan:: This 79 year old female admitted with AMS, unresponsive 1. Suspected vascular CVA: Mumbling continues, does not follow commands. Goals of care discussed with daughter Clarice this afternoon, she agrees with Palliative care at this time. Did update PCP, Dr Jean Baptiste and is aware Mimi will return to [place] on comfort measures. Dispo: likely in am.
[2019-09-21] MEDS: Morphine 2 MG/ML SYRINGE IVPUSH PRN ×2 (11:34→23:12)
--- NOTE | 2019-09-21 12:03 | PCM.CONSN ---
- General Info Date of Service: 09/21/19 Admission Dx/Problem (Free Text): Admission Diagnosis/Problem Admission Diagnosis/Problem Altered mental status Subjective Update: No events overnight. Today, she appeared to be in pain and was given morphine. She has not opened her eyes. She moves around the bed and mumbles. MRV yesterday was limited by motion artifact. The left transverse and sigmoid sinus and left IJ were not well visualized, otherwise no findings of thrombosis. - Patient Data Vitals - Most Recent: Last Vital Signs Temp 36.7 C 09/21/19 11:53 Pulse 93 09/21/19 11:53 Resp 18 09/21/19 11:53 BP 180/100 H 09/21/19 11:53 Pulse Ox 96 09/21/19 11:53 Weight - Most Recent: 47.5 kg I&O - Last 24 Hours: Intake & Output 09/20/19 09/21/19 09/21/19 22:59 06:59 14:59 Intake Total 734 608 Output Total 700 Balance 734 -92 Lab Results Last 24 Hours: Laboratory Results - last 24 hr 09/21/19 09/21/19 Range/Units 05:35 05:35 WBC 11.50 H (4.0-11.0) K/uL RBC 3.66 L (4.30-5.90) M/uL Hgb 9.9 L (12.0-16.0) g/dL Hct 31.1 L (36.0-46.0) % MCV 85.0 (80.0-98.0) fL MCH 27.0 (27.0-32.0) pg MCHC 31.8 (31.0-37.0) g/dL RDW Std Deviation 42.8 (28.0-62.0) fl RDW Coeff of Alley 14 (11.0-15.0) % Plt Count 340 (150-400) K/uL MPV 10.20 (7.40-12.00) fL Neut % (Auto) 82.5 H (48.0-80.0) % Lymph % (Auto) 5.9 L (16.0-40.0) % [place] % (Auto) 9.7 (0.0-15.0) % Eos % (Auto) 1.3 (0.0-7.0) % Baso % (Auto) 0.6 (0.0-1.5) % Neut # (Auto) 9.5 H (1.4-5.7) K/uL Lymph # (Auto) 0.7 (0.6-2.4) K/uL [place] # (Auto) 1.1 H (0.0-0.8) K/uL Eos # (Auto) 0.2 (0.0-0.7) K/uL Baso # (Auto) 0.1 (0.0-0.1) K/uL Nucleated RBC % 0.0 /100WBC Nucleated RBCs # 0 K/uL Sodium 139 (136-145) mmol/L Potassium 3.4 L (3.5-5.1) mmol/L Chloride 105 (98-107) mmol/L Carbon Dioxide 20.5 L (21.0-32.0) mmol/L BUN 16 (7.0-18.0) mg/dL Creatinine 0.8 (0.6-1.0) mg/dL Est Cr Clr Drug Dosing 41.36 mL/min Estimated GFR (MDRD) > 60.0 ml/min Glucose 82 (74-106) mg/dL Calcium 9.0 (8.5-10.1) mg/dL Med Orders - Current: Current Medications Heparin Sodium (Porcine) (Heparin Sodium) 5,000 units SUBCUT Q8H [facility] Last Admin: 09/21/19 09:31 Dose: 5,000 units Sodium Chloride (Normal Saline) 500 mls @ 500 mls/hr IV .BOLUS [facility] Last Admin: 09/19/19 09:24 Dose: 500 mls/hr Sodium Chloride (Normal Saline) 1,000 mls @ 50 mls/hr IV Q20H [facility] Last Admin: 09/21/19 05:48 Dose: 50 mls/hr Vancomycin HCl 0.75 gm/ Sodium (Chloride) 250 mls @ 250 mls/hr IV Q24H [facility] Last Admin: 09/21/19 09:46 Dose: 250 mls/hr Morphine Sulfate (Morphine) 1 mg IVPUSH Q4H PRN PRN Reason: Pain Last Admin: 09/21/19 11:34 Dose: 1 mg Ondansetron HCl (Zofran) 4 mg IVPUSH Q4H PRN PRN Reason: Nausea Brimonidine/Timolol (1 Drop) 1 each EYEBOTH Q12H [facility] Last Admin: 09/21/19 02:01 Dose: 1 each Pilocarpine 4% Ophth (Soln 15 Ml Bot) 0 each EYEBOTH QID [facility] Last Admin: 09/21/19 11:38 Dose: 1 each Latanoprost 0.005% Ophth Soln 2.5 Ml Bottle 0 each EYEBOTH BEDTIME [facility] Last Admin: 09/20/19 20:28 Dose: 1 each Discontinued Medications Gadobenate Dimeglumine (Multihance) 20 ml IVPUSH ONETIME STA Stop: 09/19/19 15:47 Last Admin: 09/19/19 16:07 Dose: 6 ml Iopamidol (Isovue Multipack-370 (76%)) 100 ml IVPUSH ONETIME ONE Stop: 09/19/19 18:35 Last Admin: 09/19/19 18:34 Dose: 100 ml Latanoprost (Xalatan 0.005% Ophth Soln) 0 ml EYEBOTH BEDTIME [facility] Last Admin: 09/19/19 21:19 Dose: Not Given Naloxone HCl (Narcan) 1 mg IV ONETIME ONE Stop: 09/19/19 09:21 Last Admin: 09/19/19 09:26 Dose: 1 mg Pilocarpine HCl (Pilocar 4% Ophth Soln) 0 ml EYEBOTH QID [facility] Last Admin: 09/20/19 15:18 Dose: Not Given - Exam Physical Findings Comments:: Patient had just received morphine prior to exam. She was lying in bed with eyes closed. She moaned when I attempted to open her yes. She moves all limbs spontaneously. Sepsis Event Note - Evaluation Sepsis Screening Result: No Definite Risk - Focused Exam Vital Signs: Vital Signs Temp Pulse Resp BP Pulse Ox 09/21/19 11:53 36.7 C 93 18 180/100 H 96 09/21/19 07:57 36.5 C 89 18 177/85 H 96 09/21/19 04:00 36.3 C 80 20 179/89 H 96 09/21/19 00:08 36.2 C 76 16 155/68 H 95 Date Exam was Performed: 09/21/19 Time Exam was Performed: 11:56 Consult PN Assessment/Plan Procedures: Procedures ASSAY OF BLOOD OSMOLALITY (09/02/18) ASSAY OF CK (CPK) (03/01/15) ASSAY OF FERRITIN (09/02/18) ASSAY OF LIPASE (09/02/18) ASSAY OF MAGNESIUM (09/02/18) ASSAY OF TROPONIN QUANT (04/03/19) ASSAY OF URINE CREATININE (09/02/18) ASSAY OF URINE OSMOLALITY (09/02/18) ASSAY OF URINE POTASSIUM (09/02/18) ASSAY OF URINE SODIUM (09/02/18) ASSAY OF URINE/UREA-N (09/02/18) ASSAY THYROID STIM HORMONE (09/02/18) AUTOMATED RETICULOCYTE COUNT (09/02/18) BLOOD TRANSFUSION SERVICE (03/01/15) BLOOD TYPING SEROLOGIC ABO (03/01/15) BLOOD TYPING SEROLOGIC RH(D) (03/01/15) C-REACTIVE PROTEIN (03/01/15) CHEST X-RAY 1 VIEW FRONTAL (03/01/15) COMPATIBILITY TEST ANTIGLOB (03/01/15) COMPATIBILITY TEST INCUBATE (03/01/15) COMPATIBILITY TEST SPIN (03/01/15) COMPLETE CBC AUTOMATED (03/01/15) COMPLETE CBC W/AUTO DIFF WBC (06/14/19) COMPREHEN METABOLIC PANEL (06/14/19) CT HEAD/BRAIN W/DYE (07/05/19) CT HEAD/BRAIN W/O DYE (04/03/19) CT LUMBAR SPINE W/O DYE (10/27/17) CT NECK SPINE W/O DYE (04/03/19) CT THORAX W/O & W/DYE (05/11/19) DECALCIFY TISSUE (03/01/15) DRUG TEST PRSMV DIR OPT OBS (09/02/18) ELECTROCARDIOGRAM TRACING (06/14/19) EMERGENCY DEPT VISIT (06/14/19) GAIT TRAINING THERAPY (03/01/15) GLUCOSE BLOOD TEST (03/01/15) HEMATOCRIT (03/01/15) HEMOGLOBIN (03/01/15) HYDRATE IV INFUSION ADD-ON (09/02/18) HYDRATION IV INFUSION INIT (06/14/19) IRON BINDING TEST (09/02/18) METABOLIC PANEL TOTAL CA (09/02/18) OCCULT BLD FECES 1-3 TESTS (09/02/18) OT EVAL LOW COMPLEX 30 MIN (09/02/18) PROTHROMBIN TIME (04/03/19) PT EVAL LOW COMPLEX 20 MIN (09/02/18) PT EVALUATION (03/01/15) RBC ANTIBODY SCREEN (03/01/15) ROUTINE VENIPUNCTURE (04/03/19) THER/DIAG CONCURRENT INF (09/04/18) THER/PROPH/DIAG INJ IV PUSH (10/27/17) THER/PROPH/DIAG INJ SC/IM (10/27/17) THER/PROPH/DIAG IV INF ADDON (09/04/18) THER/PROPH/DIAG IV INF INIT (09/02/18) THERAPEUTIC ACTIVITIES (09/02/18) THERAPEUTIC EXERCISES (10/27/17) TISSUE EXAM BY PATHOLOGIST (03/01/15) TX/PRO/DX INJ NEW DRUG ADDON (09/04/18) TX/PROPH/DG ADDL SEQ IV INF (09/04/18) URINALYSIS AUTO W/SCOPE (06/14/19) URINE CULTURE/COLONY COUNT (06/14/19) X-RAY EXAM CHEST 1 VIEW (09/02/18) X-RAY EXAM L-S SPINE 2/3 VWS (10/27/17) X-RAY EXAM OF ELBOW (04/03/19) X-RAY EXAM OF HIP (03/01/15) X-RAY EXAM OF HIP (03/01/15) X-RAY EXAM OF HIP (03/01/15) X-RAY EXAM OF HUMERUS (03/01/15) X-RAY EXAM OF PELVIS (10/27/17) X-RAY EXAM OF PELVIS (04/19/15) X-RAY EXAM OF PELVIS (03/01/15) X-RAY EXAM OF SHOULDER (04/03/19) X-RAY EXAM OF WRIST (03/01/15) X-RAY EXAM UNILAT RIBS/CHEST (10/27/17) (1) AMS (altered mental status) SNOMED Code(s): 940329128 Code(s): R41.82 - ALTERED MENTAL STATUS, UNSPECIFIED Current Visit: Yes Qualifiers: Altered mental status type: unspecified Qualified Code(s): R41.82 - Altered mental status, unspecified Assessment:: AMS, restricted diffusion midbrain and bilateral thalami Onset was abrupt and was followed by minimal improvement favoring anoxic or ischemic cause. 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 MRV showed no venous sinus thrombosis but was limited by motion with inadequate evaluation of left transverse,sigmoid and IJ Today, is day 3 and she has had minimal improvement since presentation. Goals of care have been discussed with her daughter and move to comfort care is a consideration in which case I would forego repeat imaging with CTV. Problem List Initiated/Reviewed/Updated: Yes
[2019-09-21] MEDS: Latanoprost 0.005% Ophth Soln 2.5 ML Bottle EYEBOTH SCH (20:17)
[2019-09-21 22:11] VITALS: BP 137/67; PULSE 91
[2019-09-22] MEDS: Pilocarpine 4% Ophth Soln 15 ML Bot EYEBOTH SCH ×2 (00:48→05:46)
[2019-09-22] MEDS: BRIMONIDINE EYEBOTH SCH (02:34)
[2019-09-22] MEDS: TIMOLOL EYEBOTH SCH (02:34)
--- NOTE | 2019-09-22 10:15 | PCM.DCSUM1 ---
Discharge Summary - Hospital Course Brief History: This 79 year old female with pmh of hypertension and glaucoma presented to the ED unresponsive. residential staff reports she ambulated to the dining room for breakfast and then a little while after being in her chair, she was noted to be slumped over. She was unresponsive and noted to have elevated BP. So seizure like activity noted. Reports she has been otherwise healthy at [place]. I spoke with Mimi Ferrara sister, who reports she has done this in the past and wakes up shortly after reports of seizures in the past, but no definite history of seizures or definite diagnoses of. In the ED mild Leukocytosis noted at 12,000. Na 131, Cl 96. No PITO noted. Lactic acid normal. CXR negative. Head CT negative as well. Glascow coma scale 3. 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 Diagnosis: Stroke: Yes Modified Penfield Scale: Sev.Disablility Bedridden,Incont.&Require Constant Nrsg.Care/Attention Modified Penfield Scale Score: 5 - Discharge Data Discharge Date: 09/22/19 Discharge Disposition: DC/Tfer to SNF 03 Condition: Stable - Referral to Home Health Primary Care Physician: PCP Unobtainable - Discharge Diagnosis/Problem(s) (1) AMS (altered mental status) SNOMED Code(s): 169397570 ICD Code: R41.82 - ALTERED MENTAL STATUS, UNSPECIFIED Status: Acute Current Visit: Yes Qualifiers: Altered mental status type: unspecified Qualified Code(s): R41.82 - Altered mental status, unspecified (2) Dehydration SNOMED Code(s): 19366205 ICD Code: E86.0 - DEHYDRATION Status: Acute Current Visit: Yes (3) Dementia SNOMED Code(s): 34081803 ICD Code: F03.90 - UNSPECIFIED DEMENTIA WITHOUT BEHAVIORAL DISTURBANCE Status: Acute Current Visit: No Qualifiers: Dementia type: Alzheimer's disease Alzheimer's disease onset: other onset Dementia behavioral disturbance: without behavioral disturbance Qualified Code(s): G30.8 - Other Alzheimer's disease; F02.80 - Dementia in other diseases classified elsewhere without behavioral disturbance (4) Anemia SNOMED Code(s): 738257612 ICD Code: D64.9 - ANEMIA, UNSPECIFIED Status: Chronic Priority: Medium Current Visit: No Qualifiers: Anemia type: other cause Other causes of anemia: nutritional, other Qualified Code(s): D53.8 - Other specified nutritional anemias (5) Glaucoma SNOMED Code(s): 01370540 ICD Code: H40.9 - UNSPECIFIED GLAUCOMA Status: Chronic Current Visit: No (6) HTN (hypertension) SNOMED Code(s): 88652362 ICD Code: I10 - ESSENTIAL (PRIMARY) HYPERTENSION Status: Chronic Priority : Medium Current Visit: No Qualifiers: Hypertension type: essential hypertension Qualified Code(s): I10 - Essential (primary) hypertension - Patient Summary/Data Consults: Consultations 09/19/19 16:47 Consult to Physician [CONS] Routine - Patient Instructions Diet: NPO Activity: As Tolerated Showering/Bathing: May Shower Other/Special Instructions: Comfort Measures. [facility] cares per policy, changed every 30 days. Aspiration precautions. Reposition frequently - Discharge Plan *PRESCRIPTION DRUG MONITORING PROGRAM REVIEWED*: Yes *COPY OF PRESCRIPTION DRUG MONITORING REPORT IN PATIENT TERESITA: Yes Prescriptions/Med Rec: Acetaminophen 650 mg RC Q4H PRN #15 supp.rect PRN Reason: Pain Atropine 1% [Atropine 1% Ophth Soln] 2 drop SL Q1H PRN #1 bottle PRN Reason: secretions Morphine [Morphine 20 MG/ML Soln] 5 mg PO Q4H PRN #1 bottle PRN Reason: pain/agitation/SOB Home Medications: Home Meds Pilocarpine HCl 1 drop EYEBOTH QID 03/01/15 [History] Brimonidine/Timolol [Combigan 0.2%/0.5% Ophth Soln] 1 drop EYEBOTH Q12H [History] Latanoprost [Xalatan 0.005% Ophth Soln] 1 drop EYEBOTH BEDTIME 04/03/19 [History ] Bisacodyl [Dulcolax] 10 mg RC Q24H PRN 09/19/19 [History] Carbamide Peroxide [Debrox] 3 drop EARBOTH BID PRN 09/19/19 [History] Acetaminophen 650 mg RC Q4H PRN #15 supp.rect 09/22/19 [Rx] Atropine 1% [Atropine 1% Ophth Soln] 2 drop SL Q1H PRN #1 bottle 09/22/19 [Rx] Morphine [Morphine 20 MG/ML Soln] 5 mg PO Q4H PRN #1 bottle 09/22/19 [Rx] Oxygen Therapy Mode: Room Air Patient Handouts: Morphine oral solution, Atropine tablets or soluble tablets, Acetaminophen tablets or caplets Referrals: Hima Jean Baptiste MD [Physician] - - Discharge Summary/Plan Comment DC Time >30 min.: No Discharge Summary/Plan Comment: Admitting Diagnoses: AMS Discharge Diagnoses: Palliative Care CVA Other PMH: HTN Glaucoma Mimi was admitted secondary to sudden altered mental status and unresponsiveness at the breakfast table. Since admission, she is slightly more alert, but does not open her eyes or follow commands appropriately. She is needed total cares. Dr Little consulted and work up for CVA completed, revealing like vascular event to bilateral thalami and midbrain. ECHO revealed aortic stenosis, no cardiac emobli and EF 70%. MRV of brain was attempted to rule out thrombosis but motion artifact hindered appropriate imaging. Family, Clarice, daughter,, at this time was told of prognosis and has decided on comfort measures. Health directive reviewed and Mimi wanted to be kept comfortable with no life sustaining treatments. She will be discharged to [place] today. She will be kept on glaucoma eye drops. Will add SL Morphine for pain PRN as well as Atropine for secretions. She will need aspiration precautions and is currently NPO as she remains unresponsive. I did provide diet as tolerated if she were to wake up and tolerate diet. Updated dr Jean Baptiste on transfer to [facility] on comfort measures due to CVA. - General Info Date of Service: 09/22/19 Admission Dx/Problem (Free Text: Admission Diagnosis/Problem Admission Diagnosis/Problem Altered mental status Subjective Update: Unresponsive, does not open eyes. moves all limbs but does not follow commands. - Patient Data Vitals - Most Recent: Last Vital Signs Temp 99.1 F 09/21/19 20:00 Pulse 91 09/21/19 20:00 Resp 20 09/21/19 20:00 BP 137/67 09/21/19 20:00 Pulse Ox 97 09/21/19 20:00 Weight - Most Recent: 47.5 kg I&O - Last 24 hours: Intake & Output 09/21/19 09/22/19 09/22/19 22:59 06:59 14:59 Intake Total 0 Output Total 970 Balance -970 Med Orders - Current: Current Medications Morphine Sulfate (Morphine) 1 mg IVPUSH Q4H PRN PRN Reason: Pain Last Admin: 09/21/19 23:12 Dose: 1 mg Ondansetron HCl (Zofran) 4 mg IVPUSH Q4H PRN PRN Reason: Nausea Brimonidine/Timolol (1 Drop) 1 each EYEBOTH Q12H [facility] Last Admin: 09/22/19 02:34 Dose: 1 each Pilocarpine 4% Ophth (Soln 15 Ml Bot) 0 each EYEBOTH QID [facility] Last Admin: 09/22/19 05:46 Dose: 1 each Latanoprost 0.005% Ophth Soln 2.5 Ml Bottle 0 each EYEBOTH BEDTIME [facility] Last Admin: 09/21/19 20:17 Dose: 1 each Discontinued Medications Gadobenate Dimeglumine (Multihance) 20 ml IVPUSH ONETIME STA Stop: 09/19/19 15:47 Last Admin: 09/19/19 16:07 Dose: 6 ml Heparin Sodium (Porcine) (Heparin Sodium) 5,000 units SUBCUT Q8H [facility] Last Admin: 09/21/19 09:31 Dose: 5,000 units Sodium Chloride (Normal Saline) 500 mls @ 500 mls/hr IV .BOLUS [facility] Last Admin: 09/19/19 09:24 Dose: 500 mls/hr Sodium Chloride (Normal Saline) 1,000 mls @ 50 mls/hr IV Q20H [facility] Last Admin: 09/21/19 05:48 Dose: 50 mls/hr Vancomycin HCl 0.75 gm/ Sodium (Chloride) 250 mls @ 250 mls/hr IV Q24H [facility] Last Admin: 09/21/19 09:46 Dose: 250 mls/hr Iopamidol (Isovue Multipack-370 (76%)) 100 ml IVPUSH ONETIME ONE Stop: 09/19/19 18:35 Last Admin: 09/19/19 18:34 Dose: 100 ml Latanoprost (Xalatan 0.005% Ophth Soln) 0 ml EYEBOTH BEDTIME [facility] Last Admin: 09/19/19 21:19 Dose: Not Given Naloxone HCl (Narcan) 1 mg IV ONETIME ONE Stop: 09/19/19 09:21 Last Admin: 09/19/19 09:26 Dose: 1 mg Pilocarpine HCl (Pilocar 4% Ophth Soln) 0 ml EYEBOTH QID [facility] Last Admin: 09/20/19 15:18 Dose: Not Given - Exam General: Reports: Obtunded Lungs: Reports: Clear to Auscultation, Normal Respiratory Effort Cardiovascular: Reports: Regular Rate, Regular Rhythm, Murmurs Skin: Reports: Warm, Dry Wound/Incisions: Reports: Erythema Improving (L wrist, swelling improved as well. )
--- NOTE | 2019-09-22 13:55 | ECHO ---
The echocardiogram report can be seen in this patient's EMR (Electronic Medical Record) in the REPORTS section. The echocardiogram report has also been scanned into PACS and can be seen there as well. [facility]
== END 2019-09-22 11:30 | DRG 65 ==
LOC: MW.ED 08:37 → MERGE 08:37 → MW.MS 11:04
PROVIDERS: ADMIT Internal Medicine; ATTEND Internal Medicine
DX: R41.82 Altered mental status, unspecified (principal); I63.9 Cerebral infarction, unspecified; L03.114 Cellulitis of left upper limb; E87.1 Hypo-osmolality and hyponatremia; Z51.5 Encounter for palliative care; Z66 Do not resuscitate; Z88.8 Allergy status to other drugs, medicaments and biological substances; E86.0 Dehydration; G30.9 Alzheimer's disease, unspecified; F02.80 Dementia in other diseases classified elsewhere, unspecified severity, without behavioral disturbance, psychotic disturbance, mood disturbance, and anxiety; D53.8 Other specified nutritional anemias; H40.9 Unspecified glaucoma; I10 Essential (primary) hypertension; R40.2433 Glasgow coma scale score 3-8, at hospital admission; R56.9 Unspecified convulsions; Z88.5 Allergy status to narcotic agent; Z91.040 Latex allergy status; Z91.018 Allergy to other foods; Z79.899 Other long term (current) drug therapy
CPT/HCPCS: 36415; 70450; 71045; 80053; 80305; 81003; 83605; 83735; 84484; 85025; 85610; 93005; 96361; 96374; 99285; A9270; J7040; 51702; 70496; 70496-26; 70498; 70498-26; 70544; 70544-26; 70553; 70553-26; 73100-26-LT; 73100-LT; 80048; 83519; 83520; 84550; 86256; 93306; 95816; 99284; A9577; J1644; J2270; J3370; J7030; J7050; Q9967